=== PATIENT | male | born 1935 | race Caucasian/White ===

== ENCOUNTER → 2016-11-17 | Outpatient (CLI) | payer OTHER | LOC: BHFA 11:30 | PROVIDERS: ATTEND Internal Medicine | DX: I48.91 Unspecified atrial fibrillation (principal); I10 Essential (primary) hypertension ==

== ENCOUNTER → 2016-11-18 | Outpatient (CLI) | payer OTHER | LOC: BHFA 08:30 | PROVIDERS: ATTEND Internal Medicine Cardiovascular Disease | DX: I47.2 Ventricular tachycardia (principal); I10 Essential (primary) hypertension; G45.9 Transient cerebral ischemic attack, unspecified | CPT/HCPCS: 78452; 93017; A9500; J2785 ==

== ENCOUNTER 2016-11-24 07:44 | Observation (INO) | payer OTHER ==
[2016-11-24] MEDS ORDERED: DIAZEPAM 5 MG TAB PO ONE (07:47)
[2016-11-24] MEDS ORDERED: ASPIRIN EC 325 MG TAB PO ONE ×2 (07:47→08:21)
[2016-11-24] MEDS ORDERED: FAMOTIDINE 20 MG TAB PO ONE (07:47)
[2016-11-24] MEDS ORDERED: diphenhydrAMINE 25 MG CAP PO ONE ×2 (07:47→08:21)
[2016-11-24] MEDS ORDERED: NS 1,000 ML IV ONE (07:47)
--- NOTE | 2016-11-24 08:19 | CPEKG ---
Heart Rate: 76 RR Interval: 789 QRSD Interval: 96 QT Interval: 408 QTC Interval: 459 QRS [place]: 23 T Wave [place]: 17 EKG Severity - ABNORMAL ECG - EKG Impression: ATRIAL FIBRILLATION, V-RATE 68-91 EKG Impression: PVCS EKG Impression: COMPARED WITH PRIOR TRACING DATED 04/08/2016 AT 10:50 AM, QT INTERVAL NOW SHORTER Electronically Signed By: Buffy Palomo 24-Nov-2016 10:44:49
[2016-11-24] MEDS ORDERED: FAMOTIDINE 20 MG TAB ONE (08:21)
[2016-11-24] MEDS ORDERED: DIAZEPAM 5 MG TAB ONE (08:21)
[2016-11-24 08:24] LABS: % IMMATURE GRANULYOCYTES 0.5 % (0.0-1.1); ABSOLUTE IMMATURE GRANULOCYTES 0.03 10^3/uL (0.00-0.10); ADD DIFF? NO; ADD MORPH? NO; ADD SCAN? NO; ATYPICAL LYMPHOCYTE FLAG 10 (0-99); FRAGMENT RBC FLAG 0 (0-99); HEMATOCRIT 49.8 % (40.0-51.0); HEMOGLOBIN 16.6 g/dL (13.7-17.5); LEFT SHIFT FLG 0 (0-99); LIPEMIA HEMOLYSIS FLAG 80 (0-99); MEAN CELL HEMOGLOBIN 30.3 pg (27.9-34.1); MEAN CELL HEMOGLOBIN CONCENTR. 33.3 g/dL (32.4-36.7); MEAN CELL VOLUME 90.9 fL (81.5-99.8); MEAN PLATELET VOLUME 12.4 fL (8.7-11.7); PLATELET CLUMPS FLAG 0 (0-99); PLATELET COUNT 157 10^3/uL (150-400); RED BLOOD CELL COUNT 5.48 10^6/uL (4.40-6.38); RED CELL DISTRIBUTION WIDTH 13.8 % (11.5-15.2)
[2016-11-24 08:35] LABS: ANION GAP 14 mEq/L (8-16); CALCIUM 9.7 mg/dL (8.5-10.4); CARBON DIOXIDE 24 mEq/l (22-31); CHLORIDE 108 mEq/L (97-110); CHOLESTEROL 108 mg/dL (140-220); CHOLESTEROL/HDL RATIO 2.57 RATIO (1.00-4.97); CREATININE 0.9 mg/dL (0.7-1.3); GLOMERULAR FILTRATION RATE > 60; GLUCOSE 93 mg/dL (70-100); HIGH DENSITY LIPOPROTEIN 42 mg/dL (40-65); LDL/HDL RATIO 1.21 RATIO (1.00-3.64); LOW DENSITY LIPOPROTEIN 51 mg/dL (80-100); MAGNESIUM 2.1 mg/dL (1.6-2.3); NON-HIGH DENSITY LIPOPROTEIN 66 mg/dL (90-129); POTASSIUM 4.3 mEq/L (3.5-5.2); SODIUM 146 mEq/L (134-144); TRIGLYCERIDE 77 mg/dL (40-150); VERY LOW DENSITY LIPOPROTEINS 15 mg/dL (8-25)
[2016-11-24 08:38] LABS: INR 1.17 (0.83-1.16); PROTIME(PATIENT) 14.9 SEC (12.0-15.0)
[2016-11-24] MEDS ORDERED: LIDOCAINE 1% 300 MG/30 ML SDV ONE (09:53)
[2016-11-24] MEDS ORDERED: HEPARIN 10,000 UNIT/10 ML MDV ONE (09:53)
[2016-11-24] MEDS ORDERED: MIDAZOLAM 2 MG/2 ML VIAL ONE (09:53)
[2016-11-24] MEDS ORDERED: fentaNYL 100 MCG/2 ML INJ ONE (09:53)
[2016-11-24] MEDS ORDERED: VERAPAMIL 5 MG/2 ML VIAL ONE (09:53)
[2016-11-24] MEDS ORDERED: IOPAMIDOL (ISOVUE-370) 150 ML BTL IV ONE ×2 (09:54→10:37)
[2016-11-24] MEDS ORDERED: BIVALIRUDIN 250 MG/5 ML VIAL IV ONE (10:37)
[2016-11-24] MEDS ORDERED: NITROGLYCERIN 1,500 MCG/15 ML VIAL MISC ONE (10:55)
[2016-11-24] MEDS ORDERED: LABETALOL HCL 50 MG/10 ML SYR ONE (11:03)
[2016-11-24] MEDS ORDERED: CLOPIDOGREL BISULFATE 75 MG TAB ONE (11:07)
[2016-11-24] MEDS ORDERED: CLOPIDOGREL BISULFATE 75 MG TAB PO ONE (11:21)
[2016-11-24] MEDS ORDERED: ATROPINE SULFATE 1 MG/10 ML SYR IVP PRN (11:21)
[2016-11-24] MEDS ORDERED: ONDANSETRON 4 MG/2 ML VIAL IVP PRN (11:21)
[2016-11-24] MEDS ORDERED: TEMAZEPAM 15 MG CAP PO PRN (11:21)
[2016-11-24] MEDS ORDERED: NITROGLYCERIN 0.4 MG BTL SL PRN (11:21)
[2016-11-24] MEDS ORDERED: LORazepam 2 MG/ML INJ IVP PRN (11:21)
--- NOTE | 2016-11-24 11:28 | CPEKG ---
Heart Rate: 69 RR Interval: 870 QRSD Interval: 98 QT Interval: 464 QTC Interval: 497 QRS [place]: 29 T Wave [place]: 26 EKG Severity - ABNORMAL ECG - EKG Impression: ATRIAL FIBRILLATION, V-RATE 42-93 EKG Impression: ABERRATED PREMATURE ATRIAL BEAT VS PVC EKG Impression: BORDERLINE PROLONGED QT INTERVAL EKG Impression: COMPARED WITH 24 NOV 2016 AT 8:17, QT SHORTER Electronically Signed By: Buffy Palomo 24-Nov-2016 13:39:26
--- NOTE | 2016-11-24 12:24 | CPIP ---
[f rep st] INVASIVE CARDIAC PROCEDURE DATE OF PROCEDURE: 11/24/2016 PROCEDURE: 1. Coronary angiography. 2. Left ventriculography. 3. Stenting of circumflex coronary artery with Synergy drug-eluting stents. INDICATIONS: 1. Ventricular tachycardia. 2. Abnormal nuclear stress test that is intermediate risk. 3. Cardiomyopathy. ACCESS: Patient was prepped and draped in a sterile fashion. 1% lidocaine was used to anesthetize the right inguinal region. A 6-Yakut introducer sheath was placed selectively into the right commo n femoral artery via modified Seldinger technique. CORONARY ANGIOGRAPHY: A 6-Yakut JL4 was advanced to the left main coronary artery and images obtai eliana. The left main coronary artery bifurcated into an LAD and circumflex coronary arteries. The le ft main coronary artery appeared normal. The left anterior descending coronary artery gave rise to 1 prominent diagonal branch, as well as several smaller diagonal branches. The left anterior descen ding coronary artery was diffusely diseased. In the proximal segment, there is sequential 20% to 25 % stenosis present. In the mid vessel, there was a segmental 15% to 20% stenosis present. The firs t diagonal artery had a proximal 30% to 40% stenosis present. The circumflex coronary artery was a large vessel. The circumflex coronary artery was nondominant. Circumflex coronary artery gave rise to 3 OM branches. The circumflex coronary artery had a mid 20% to 30% stenosis present. The secon d OM artery was a large vessel. The second OM artery had a proximal 90% stenosis present. A 6-Fren ch JR4 was advanced to the right coronary artery and images obtained. The right coronary artery is dominant. The right coronary artery had a single discrete 30% stenosis in the midvessel. LEFT VENTRICULOGRAPHY: A 6-Yakut pigtail catheter was advanced into the left ventricle and images obtained. Left ventricle was mildly dilated in size. Left ventricular systolic function was signif icantly reduced. The estimated ejection fraction was 30%. Segmental wall motion abnormalities are hard to ascertain given irregular beating of the heart. PERCUTANEOUS CORONARY INTERVENTION OF SECOND OM CORONARY ARTERY: A 6-Yakut EBU 3.5 catheter was ad vanced to the left main coronary artery and images obtained. Angiography confirmed the presence of high-grade disease involving the proximal OM2 coronary artery. A Luge wire was placed in the distal vessel and position verified by angiography. A 2.5 x 12 Emerge balloon was used to pre-dilate the lesion. Followup angiography demonstrated KATIE 3 flow; however, there was significant residual sten osis. A 2.5 x 16 Synergy drug-eluting stent was then placed across the lesion and deployed. Follow up angiography demonstrated KATIE-3 flow with a small distal edge dissection. A second 2.5 x 16 Syne rgy drug-eluting stent was placed within the first stent and extended distally and deployed. Follow up angiography demonstrated KATIE-3 flow, no residual stenosis. COMPLICATIONS: None. CONCLUSIONS: 1. Single-vessel coronary artery disease. 2. Reduced left ventricular systolic function with an estimated ejection fraction 30%. 3. Status post successful percutaneous coronary intervention of the second OM artery using Synergy drug-eluting stents. /[id number]/MODL
--- NOTE | 2016-11-24 14:34 | CPEKG ---
Heart Rate: 66 RR Interval: 909 QRSD Interval: 94 QT Interval: 456 QTC Interval: 478 QRS [place]: 35 T Wave [place]: 25 EKG Severity - ABNORMAL ECG - EKG Impression: ATRIAL FIBRILLATION, V-RATE 51-89 EKG Impression: BORDERLINE PROLONGED QT INTERVAL Electronically Signed By: Buffy Palomo 24-Nov-2016 17:19:50
[2016-11-24] MEDS: PRESERVISION AREDS2 FORMULA EYE VIT 1 EACH PO SCH ×2 (20:12→20:14)
[2016-11-25 05:10] LABS: % IMMATURE GRANULYOCYTES 0.6 % (0.0-1.1); ABSOLUTE IMMATURE GRANULOCYTES 0.04 10^3/uL (0.00-0.10); ADD DIFF? NO; ADD MORPH? NO; ADD SCAN? NO; ATYPICAL LYMPHOCYTE FLAG 10 (0-99); FRAGMENT RBC FLAG 0 (0-99); HEMATOCRIT 46.5 % (40.0-51.0); HEMOGLOBIN 15.6 g/dL (13.7-17.5); LEFT SHIFT FLG 0 (0-99); LIPEMIA HEMOLYSIS FLAG 80 (0-99); MEAN CELL HEMOGLOBIN 30.5 pg (27.9-34.1); MEAN CELL HEMOGLOBIN CONCENTR. 33.5 g/dL (32.4-36.7); MEAN PLATELET VOLUME 12.3 fL (8.7-11.7); PLATELET CLUMPS FLAG 0 (0-99); PLATELET COUNT 133 10^3/uL (150-400); RED BLOOD CELL COUNT 5.11 10^6/uL (4.40-6.38); RED CELL DISTRIBUTION WIDTH 13.9 % (11.5-15.2)
[2016-11-25 05:13] LABS: ANION GAP 11 mEq/L (8-16); CALCIUM 9.4 mg/dL (8.5-10.4); CARBON DIOXIDE 26 mEq/l (22-31); CHLORIDE 107 mEq/L (97-110); GLOMERULAR FILTRATION RATE > 60; GLUCOSE 87 mg/dL (70-100); POTASSIUM 4.4 mEq/L (3.5-5.2); SODIUM 144 mEq/L (134-144)
[2016-11-25 05:48] VITALS: RESP 18; TEMP 98.6
[2016-11-25 07:34] VITALS: PULSE 92; O2SAT 91
[2016-11-25] MEDS: PRESERVISION AREDS2 FORMULA EYE VIT 1 EACH PO SCH (08:16)
[2016-11-25 08:18] VITALS: BP 150/75
[2016-11-25] MEDS ORDERED: CLOPIDOGREL BISULFATE 75 MG TAB PO SCH (09:00)
[2016-11-25] MEDS ORDERED: ESCITALOPRAM OXALATE 10 MG TAB PO SCH (09:00)
[2016-11-25] MEDS ORDERED: ASPIRIN EC 325 MG TAB PO SCH (09:00)
[2016-11-25] MEDS ORDERED: ATORVASTATIN CALCIUM 20 MG TAB PO SCH (09:00)
--- NOTE | 2016-11-25 09:07 | CPEKG ---
Heart Rate: 114 RR Interval: 526 QRSD Interval: 92 QT Interval: 364 QTC Interval: 502 QRS [place]: 38 T Wave [place]: 19 EKG Severity - ABNORMAL ECG - EKG Impression: ATRIAL FIBRILLATION, V-RATE 93-149 EKG Impression: MULTIPLE VENTRICULAR PREMATURE COMPLEXES EKG Impression: BORDERLINE T ABNORMALITIES, INFERIOR LEADS EKG Impression: PROLONGED QT INTERVAL EKG Impression: COMPARED WITH 11/24/2016 AT 2:32 P.M., PVCS NOW NOTED Electronically Signed By: Buffy Palomo 25-Nov-2016 11:48:46
[2016-11-25] MEDS ORDERED: METOPROLOL TARTRATE 50 MG TAB PO SCH (10:45)
--- NOTE | 2016-11-25 11:53 | GDS ---
[f rep st] DISCHARGE SUMMARY DISCHARGE DIAGNOSES: 1. Persistent versus permanent atrial fibrillation, on Eliquis therapy. 2. History of transient ischemic attack. 3. History of hypertension. 4. History of dyslipidemia. 5. Recent falls of unclear etiology with extensive cardiac testing. 6. Recent nuclear stress test showing moderate-size fixed mid to distal inferior defect, consistent with infarct versus artifact with associated mild inferior hypokinesis with mild impaired thickenin g. Ejection fraction reduced at 37%. Status post left heart catheterization and percutaneous inter vention to a stenotic second OM with 90% stenosis. 7. Recent 30-day event monitor showing 4-6 beat runs of a wide-complex tachycardia and ventricular tachycardia. Started on beta shilo on this admission. PROCEDURE PERFORMED: 11/24/2016 left heart catheterization with mild to moderate coronary disease, 90% stenosis found in the second OM in the proximal portion, status post Synergy stenting. BRIEF SUMMARY: Please see dictated H and P by Charla Almeida for complete details. In brief, th e patient is an 81-year-old male with persistent versus permanent atrial fibrillation on anticoagula tion, previous TIA, hypertension, and dyslipidemia, who had a fall recently with resultant fracture to his right femoral head ,status post ORIF. Fall etiology was unclear and so he proceeded to cardi ac testing, which included echo, a 30-day event monitor, and echocardiography. On nuclear stress te sting, he was found to have an inferior perfusion defect with associated wall motion abnormality. H e proceeded to left heart catheterization, which found obstructive disease in the obtuse marginal, s tatus post PTCA and stenting. HOSPITAL COURSE: 1. Abnormal nuclear stress test with recent possible syncope. He is status post PCI to OM. 2. Wide-complex tachycardia versus ventricular tachycardia. He has proceeded to revascularization. He will be started on metoprolol in place of his Cardizem. He will have followup echo and Holter monitoring in our office in the next 1-2 weeks. 3. Hypoxia. He had some low O2 saturations in this hospitalization. He was advised to follow up f or a possible sleep evaluation. 4. Atrial fibrillation. His rates are mostly controlled on telemetry. He will be changed from Car dizem to Eliquis, as listed above. 5. Dyslipidemia. He is on atorvastatin. His LDL measures at 51. His therapy has been continued. 6. CAD. He has been started on dual antiplatelet therapy in addition to his Eliquis. We reviewed that after 1 month's time he will stop aspirin and only continue on Plavix and Eliquis. RESULTS PENDING: None. DIET: Cardiac diet reviewed. ACTIVITY: Groin precautions reviewed. PHYSICAL EXAM: VITAL SIGNS: On the day of discharge, blood pressure 150/75, heart rate 92, respira tions 18, O2 saturation 91% on room air. GENERAL: He is a very pleasant male in no apparent distre ss. EYES: PERRL. HEART: Irregular rate and rhythm with no rubs, gallops, or murmurs. LUNGS: Cl ear. ABDOMEN: Soft. Right groin site without ecchymosis, bruit, or tenderness on palpation. He h as 2+ PT pulses bilaterally. LABORATORY DATA: BMP: Sodium 144, potassium 4.4, chloride 107, CO2 26, BUN 16, creatinine 1, gluco se 87. Triglycerides 77, total cholesterol 108, LDL 51, HDL 42. CBC with WBC 6.75, hemoglobin 15.6 , hematocrit 46.5, platelet count of 133. DISCHARGE MEDICATIONS: Please see medication reconciliation for complete details. He is being disc harged on his atorvastatin, apixaban, Lexapro, PreserVision, Cialis. His Cardizem has been stopped. He has been started on metoprolol 50 p.o. b.i.d. He will be placed on Plavix 75 mg p.o. daily. A spirin should be taken for 30 days postprocedurally. This is just 81 mg p.o. daily. FOLLOWUP INSTRUCTIONS: 1. Groin precautions. 2. Follow up with Charla Almeida as scheduled for December 07. /[id number]/MODL
== END 2016-11-25 12:20 | disposition home or self-care (01) ==
LOC: FCATH 07:44 → F2W 11:17
PROVIDERS: ADMIT Internal Medicine Cardiovascular Disease; ATTEND Internal Medicine Cardiovascular Disease
PROC: B2111ZZ Fluoroscopy of Multiple Coronary Arteries using Low Osmolar Contrast (ICD-10-PCS; principal; 2016-11-24)
PROC: B2151ZZ Fluoroscopy of Left Heart using Low Osmolar Contrast (ICD-10-PCS; principal; 2016-11-24)
PROC: 027035Z Dilation of Coronary Artery, One Artery with Two Drug-eluting Intraluminal Devices, Percutaneous Approach (ICD-10-PCS; principal; 2016-11-24)
PROC: 4A023N7 Measurement of Cardiac Sampling and Pressure, Left Heart, Percutaneous Approach (ICD-10-PCS; principal; 2016-11-24)
DX: I47.2 Ventricular tachycardia (principal); I48.91 Unspecified atrial fibrillation; I25.10 Atherosclerotic heart disease of native coronary artery without angina pectoris; R94.39 Abnormal result of other cardiovascular function study; R09.02 Hypoxemia; I42.9 Cardiomyopathy, unspecified; I49.5 Sick sinus syndrome; R29.6 Repeated falls; I10 Essential (primary) hypertension; E78.5 Hyperlipidemia, unspecified; N40.0 Benign prostatic hyperplasia without lower urinary tract symptoms; R41.3 Other amnesia; Z86.73 Personal history of transient ischemic attack (TIA), and cerebral infarction without residual deficits; Z87.891 Personal history of nicotine dependence; Z79.01 Long term (current) use of anticoagulants; Z79.82 Long term (current) use of aspirin
CPT/HCPCS: 93005; 93458; C1725; C1760; C1769; C1874; C1887; C9600; J0583; J1644; J2250; J3010; Q9967

== ENCOUNTER → 2016-12-20 | Outpatient (CLI) | payer OTHER | LOC: BHFA 10:00 | PROVIDERS: ATTEND Internal Medicine Cardiovascular Disease | DX: I48.91 Unspecified atrial fibrillation (principal); I49.5 Sick sinus syndrome ==

== ENCOUNTER → 2016-12-29 | Outpatient (CLI) | payer OTHER | LOC: BHFA 15:30 | PROVIDERS: ATTEND Internal Medicine Cardiovascular Disease | DX: I48.91 Unspecified atrial fibrillation (principal) ==

== ENCOUNTER → 2017-04-06 | Outpatient (CLI) | payer OTHER | LOC: FIMAGING 12:04 | PROVIDERS: ATTEND Internal Medicine | DX: M50.30 Other cervical disc degeneration, unspecified cervical region (principal) ==

== ENCOUNTER → 2017-08-22 | Outpatient (CLI) | payer OTHER | LOC: FIMAGING 15:01 | PROVIDERS: ATTEND Internal Medicine | DX: S32.030A Wedge compression fracture of third lumbar vertebra, initial encounter for closed fracture (principal); M48.061 Spinal stenosis, lumbar region without neurogenic claudication; M46.96 Unspecified inflammatory spondylopathy, lumbar region; M51.36 Other intervertebral disc degeneration, lumbar region; M46.97 Unspecified inflammatory spondylopathy, lumbosacral region; M48.07 Spinal stenosis, lumbosacral region ==

== ENCOUNTER → 2017-08-24 | Outpatient (CLI) | payer OTHER | LOC: FIMAGING 10:06 | PROVIDERS: ATTEND Internal Medicine | DX: M25.552 Pain in left hip (principal) ==

== ENCOUNTER 2017-09-13 09:48 | Inpatient (IN) | payer OTHER ==
[2017-09-13] MEDS ORDERED: ceFAZolin 2 GM/SWFI 2 GM/20 ML SYR IVP ONE (10:10)
[2017-09-13] MEDS ORDERED: LIDOCAINE 1% 2 ML INJ ID PRN (10:11)
[2017-09-13] MEDS ORDERED: LR 1,000 ML IV ONE (10:11)
[2017-09-13] MEDS ORDERED: BUPIVACAINE 0.5% 10 ML SDV ONE ×3 (11:11→11:13)
--- NOTE | 2017-09-13 11:53 | PDHPUP ---
History & Physical Update H&P update statement: This history and physical update is based on an assessment of the patient which was completed after admission or registration (within 24 hours), but prior to the surgery/procedure. H&P update: H&P reviewed & patient examined, no change in patient's condition since H&P completed
[2017-09-13] MEDS ORDERED: fentaNYL 100 MCG/2 ML INJ ONE ×3 (12:10→13:44)
[2017-09-13] MEDS ORDERED: LIDOCAINE 2% 100 MG/5 ML SYR ONE (12:10)
[2017-09-13] MEDS ORDERED: ROCURONIUM 50 MG/5 ML VIAL ONE (12:10)
[2017-09-13] MEDS ORDERED: PROPOFOL 200 MG/20 ML VIAL ONE (12:10)
--- NOTE | 2017-09-13 12:13 | PDANEPAE ---
ANE Past Medical History - Cardiovascular History Hx Hypertension: Yes Hx Arrhythmias: Yes Hx Chest Pain: No Hx Coronary Artery / Peripheral Vascular Disease: Yes Hx CHF / Valvular Disease: No Hx Palpitations: No Cardiovascular History Comment: Sick sinus syndrome, A Fib, Heart cath w/2 stents November. - Pulmonary History Hx COPD: No Hx Asthma/Reactive Airway Disease: No Hx Recent Upper Respiratory Infection: No Hx Oxygen in Use at Home: No Hx Sleep Apnea: No Sleep Apnea Screening Result - Last Documented: Positive Pulmonary History Comment: Dx w/[place]-Barry appro 2009 - Neurologic History Hx Cerebrovascular Accident: No Hx Seizures: No Hx Dementia: No Neurologic History Comment: TIA . Decreased strength/stamina.Short term memory impairment-past yr. - Endocrine History Hx Diabetes: No - Renal History Hx Renal Disorders: Yes Renal History Comment: BPH- responded to Cool Thermotx and Cialis. - Liver History Hx Hepatic Disorders: No - Neurological & Psychiatric Hx Hx Neurological and Psychiatric Disorders: Yes Neurological / Psychiatric History Comment: L3 compression fx, concussion sustained w/fall 08-08-17. - Cancer History Hx Cancer: No - Congenital Disorder History Hx Congenital Disorders: No - GI History Hx Gastrointestinal Disorders: No - Other Health History Other Health History: macular degeneration-bilat;. seasonal allergies - Chronic Pain History Chronic Pain: Yes (back/L groin) - Surgical History Prior Surgeries: Rodding R hip . shoulder sx. sinus sx. varicose vein sx. laminectomy ANE Review of Systems Review of Systems: - Exercise capacity METS (RN): 4 METS ANE Patient History - Allergies Allergies/Adverse Reactions: hydrocodone [From Vicodin] Allergy (Verified 09/12/17 17:53) Vomiting SULFA EYE SOLUTION Allergy (Mild, Uncoded 03/29/16 01:12) ITCHY/IRRITATED EYE LIDS - Home Medications Home Medications: Atorvastatin Calcium [Lipitor 20 mg (*)] 20 mg PO DAILY 03/28/16 [Last Taken 1 Day Ago ~09/12/17] C/E/Zn/Cu/OM3/DHA/EPA/LUT/ZEAX [Preservision Areds 2 Softgel] 1 each PO BID [Last Taken 11/24/16] Escitalopram Oxalate [Lexapro 10 MG] 10 mg PO DAILY 03/28/16 [Last Taken 08:00] Tadalafil [Cialis] 5 mg PO HS 03/28/16 [Last Taken 11/23/16] Acetaminophen [Tylenol 325mg (*)] 325 - 650 mg PO DAILY PRN 11/24/16 [Last Taken 09/13/17 08:00] Apixaban [Eliquis] 5 mg PO BID 11/24/16 [Last Taken 09/11/17 18:00] Gabapentin 09/12/17 [Last Taken 1 Day Ago ~09/12/17] Oxycodone HCl 09/12/17 [Last Taken 09/09/17] - NPO status NPO Since - Liquids (Date): 09/13/17 NPO Since - Liquids (Time): 08:00 NPO Since - Solids (Date): 09/12/17 NPO Since - Solids (Time): 18:30 - Smoking Hx Smoking Status: Former smoker ANE Labs/Vital Signs - Vital Signs Blood Pressure: 155/95 Heart Rate: 87 Respiratory Rate: 18 O2 Sat (%): 94 Height: 190.5 cm Weight: 86.183 kg ANE Physical Exam - Airway Neck exam: FROM Mallampati Score: Class 3 Mouth exam: normal dental/mouth exam - Pulmonary Pulmonary: no respiratory distress - Cardiovascular Cardiovascular: regular rate and rhythym - ASA Status ASA Status: III ANE Anesthesia Plan Anesthesia Plan: general endotracheal anesthesia
[2017-09-13] MEDS ORDERED: ALBUTEROL 3 ML DEYVIAL IH PRN (13:22)
[2017-09-13] MEDS ORDERED: NALOXONE HCL 0.4 MG/ML INJ IVP PRN (13:22)
--- NOTE | 2017-09-13 13:23 | POSTANESTH ---
Post Anesthetic Evaluation Cardiovascular Status: Similar to Pre-Op Cond Respiratory Status: Similar to Pre-op Cond. Level of Consciousness/Mental Status: Mildly Sleepy, Arousable Pain Control: Adequate, Prn Tx Ordered Nausea/Vomiting Control: Adequate, Prn Tx Ordered Complications Possibly Related to Anesthesia: None Noted
--- NOTE | 2017-09-13 13:23 | POSTOPPROG ---
Post Op Note Date of Operation: 09/13/17 Surgeon: Cortes Ballard Eligibility And Occupancy Interviewer: Valerie Pérez Anesthesiologist: Jorge Alberto Luna Anesthesia: GET(General Endotracheal) Pre-op Diagnosis: LIH Post-op Diagnosis: bilateral femoral hernias Procedure: lap B femoral hernia repair with mesh Findings: bilateral defects Inf/Abcess present in the surg proc area at time of surgery?: No EBL: Minimal Complications: none Specimen(s): none
[2017-09-13] MEDS: fentaNYL 100 MCG/2 ML INJ IVP PRN ×3 (13:45→14:15)
[2017-09-13] MEDS: OXYCODONE/APAP 5/325 TAB PO PRN ×2 (15:44→23:49)
--- NOTE | 2017-09-13 17:37 | CPEKG ---
Heart Rate: 110 RR Interval: 545 QRSD Interval: 90 QT Interval: 352 QTC Interval: 477 QRS [place]: 14 T Wave [place]: -12 EKG Severity - ABNORMAL ECG - EKG Impression: ATRIAL FIBRILLATION, V-RATE 71-147 EKG Impression: VENTRICULAR PREMATURE COMPLEXES EKG Impression: BORDERLINE T ABNORMALITIES, INFERIOR LEADS EKG Impression: BORDERLINE PROLONGED QT INTERVAL Electronically Signed By: Francisco Ruby 14-Sep-2017 06:25:58
[2017-09-13] MEDS ORDERED: ENALAPRILAT DIHYDRATE 1.25 MG/ML VIAL IVP ONE (18:15)
[2017-09-13] MEDS ORDERED: METOPROLOL TARTRATE 25 MG TAB PO ONE (18:15)
[2017-09-13 18:17] LABS: PLATELET COUNT 151 10^3/uL (150-400)
[2017-09-13] MEDS ORDERED: FUROSEMIDE 20 MG/2 ML VIAL IVP ONE (18:37)
[2017-09-13] MEDS: ONDANSETRON 4 MG/2 ML VIAL IVP PRN (18:41)
--- NOTE | 2017-09-13 18:45 | PDCARCONS ---
Cardiology Consult Reason for Consult: CP, known CAD, post operative from bilateral inguinal hernia repair. Chief Complaint: Chest pain. Requesting Physician: Dr. Emeka Ballard. History of Present Illness: This is an 81-year-old male typically followed as an outpatient by Dr. Luigi Martinez. He has known coronary artery disease. He underwent cardiac catheterization and subsequent PCI/stenting of an obtuse marginal branch in November of 2016. He has known permanent atrial fibrillation associated with sick sinus syndrome. As an outpatient he has been treated with systemic anticoagulation in the form of Eliquis. In the past he had been treated with metoprolol however more recently this looks as if to have been discontinued due to symptoms of fatigue. He underwent bilateral inguinal hernia repair earlier today. This was performed laparoscopically. There were no complications. Earlier today he complained of a 45 min episode of chest discomfort. This was described as a retrosternal aching sensation. He felt as if he needed to"wipe it away."The symptoms resolved spontaneously. Currently he is pain free. He is suffering from significant nausea and had multiple episodes of emesis during my visit with him. He had an electrocardiogram done. This indicates atrial fibrillation with a rapid ventricular response. Isolated PVCs were noted. There were no significant ST or T changes. History Information - Allergies/Home Medication List Allergies/Adverse Reactions: hydrocodone [From Vicodin] Allergy (Verified 09/12/17 17:53) Vomiting SULFA EYE SOLUTION Allergy (Mild, Uncoded 03/29/16 01:12) ITCHY/IRRITATED EYE LIDS Home Medications: Atorvastatin Calcium [Lipitor 20 mg (*)] 20 mg PO DAILY 03/28/16 [Last Taken 05/21] C/E/Zn/Cu/OM3/DHA/EPA/LUT/ZEAX [Preservision Areds 2 Softgel] 1 each PO BID [Last Taken 09/06/17] Escitalopram Oxalate [Lexapro 10 MG] 10 mg PO DAILY 03/28/16 [Last Taken ] Tadalafil [Cialis] 5 mg PO HS 03/28/16 [Last Taken 09/11/17] Apixaban [Eliquis] 5 mg PO BID 11/24/16 [Last Taken 09/11/17 18:00] Acetaminophen [Tylenol ES 500 mg (*)] 1,000 mg PO Q8 09/13/17 [Last Taken 08:00] Bevacizumab [Avastin] 1 dose RTEYE .Q6WK 09/13/17 [Last Taken 09/06/17] [place]a Injection 1 dose LEFTEYE .Q6WK 09/13/17 [Last Taken 09/06/17] Gabapentin [Neurontin 100 MG (*)] 100 mg PO TID 09/13/17 [Last Taken 09/12/17] Metoprolol Tartrate [Lopressor 25 mg (*)] 25 mg PO BID 09/13/17 [Last Taken 08:00] oxyCODONE IR [Oxycodone Ir (*)] 5 mg PO Q4 PRN 09/13/17 [Last Taken Unknown] I have personally reviewed and updated: family history, medical history, social history, surgical history Past Medical History: - Social History Smoking Status: Former smoker Physical Exam Physical Exam: Temp Pulse Resp BP Pulse Ox 36.6 C 89 18 170/110 H 98 09/13/17 15:23 09/13/17 17:37 09/13/17 17:37 09/13/17 17:37 09/13/17 17:37 O2 (L/minute) 3 Constitutional: no apparent distress Cardiovascular: irregularly irregular, tachycardia Peripheral Pulses: 2+: carotid (R), carotid (L) Respiratory: no respiratory distress, no rales or rhonchi, clear to auscultation , No reduced air movement Gastrointestinal: soft, non-tender abdomen, other (Postoperative changes noted from his recent laparoscopic inguinal hernia repair) Skin: warm, normal color Neurologic: AAOx3 Psychiatric: interacting appropriately, not anxious, not encephalopathic Lab and Imaging 09/13/17 18:12 09/13/17 18:12 WBC 12.03 10^3/uL (3.80-9.50) H 09/13/17 18:12 RBC 4.75 10^6/uL (4.40-6.38) 09/13/17 18:12 Hgb 15.4 g/dL (13.7-17.5) 09/13/17 18:12 Hct 46.3 % (40.0-51.0) 09/13/17 18:12 MCV 97.5 fL (81.5-99.8) 09/13/17 18:12 MCH 32.4 pg (27.9-34.1) 09/13/17 18:12 MCHC 33.3 g/dL (32.4-36.7) 09/13/17 18:12 RDW 13.2 % (11.5-15.2) 09/13/17 18:12 Plt Count 151 10^3/uL (150-400) 09/13/17 18:12 MPV 11.6 fL (8.7-11.7) 09/13/17 18:12 Neut % (Auto) 85.3 % (39.3-74.2) H 09/13/17 18:12 Lymph % (Auto) 7.7 % (15.0-45.0) L 09/13/17 18:12 [place] % (Auto) 5.7 % (4.5-13.0) 09/13/17 18:12 Eos % (Auto) 0.7 % (0.6-7.6) 09/13/17 18: Baso % (Auto) 0.2 % (0.3-1.7) L 09/13/17 18:12 Nucleat RBC Rel Count 0.0 % (0.0-0.2) 09/13/17 18:12 Absolute Neuts (auto) 10.25 10^3/uL (1.70-6.50) H 09/13/17 18:12 Absolute Lymphs (auto) 0.93 10^3/uL (1.00-3.00) L 09/13/17 18:12 Absolute Monos (auto) 0.68 10^3/uL (0.30-0.80) 09/13/17 18:12 Absolute Eos (auto) 0.09 10^3/uL (0.03-0.40) 09/13/17 18:12 Absolute Basos (auto) 0.03 10^3/uL (0.02-0.10) 09/13/17 18:12 Absolute Nucleated RBC 0.00 10^3/uL (0-0.01) 09/13/17 18:12 Immature Gran % 0.4 % (0.0-1.1) 09/13/17 18: Immature Gran # 0.05 10^3/uL (0.00-0.10) 09/13/17 18:12 Sodium 144 mEq/L (135-145) 09/13/17 18:12 Potassium 4.5 mEq/L (3.5-5.2) 09/13/17 18:12 Chloride 102 mEq/L (97-110) 09/13/17 18:12 Carbon Dioxide 30 mEq/l (22-31) 09/13/17 18:12 Anion Gap 12 mEq/L (8-16) 09/13/17 18:12 BUN 17 mg/dL (7-23) 09/13/17 18:12 Creatinine 1.0 mg/dL (0.7-1.3) 09/13/17 18:12 Estimated GFR > 60 09/13/17 18:12 Glucose 106 mg/dL (70-100) H 09/13/17 18:12 Calcium 9.0 mg/dL (8.5-10.4) 09/13/17 18:12 Visualized and Interpreted Chest x-ray results: Yes Chest X-ray Interpretation: other (Pending congestive heart failure) Visualized and Interpreted EKG results: Yes EKG additional interpertation: Atrial fibrillation with RVR, no acute ischemic ST or T changes A/P Assessment: 1. Known coronary artery disease with previous PCI/stenting of an obtuse marginal branch in November of 2016. 2. History of chronic atrial fibrillation associated with sick sinus syndrome without the need for permanent pacing. He is treated with systemic anticoagulation in the outpatient setting. Currently with poor heart rate control. 3. Atypical chest discomfort noted in the postoperative setting from a laparoscopic bilateral inguinal hernia repair. 4. Chest x-ray indicating possible impending congestive heart failure. 5. Status post recent laparoscopic inguinal hernia repair. Plan: At the present time he appears stable. His chest discomfort was certainly atypical and transient lasting for 45 min. The exact etiology is not clear. He is suffering from significant nausea at the present time. This may have been the impetus for his chest discomfort. Additionally he could of experienced chest discomfort related to AFib with RVR as well as hypertension. His electrocardiogram does not suggest an acute myocardial infarction or acute ischemia. His current presentation is really not consistent with pulmonary embolism or dissection. There is no indication of an infectious process. Plan: 1. I would like to give him IV metoprolol to get better rate control. I have requested 3 doses of intravenous Lopressor. Target heart rate is below 100 beats per minute. 2. I wrote to restart metoprolol 25 mg twice daily. 3. We will monitor him on telemetry. 4. We will plan to cycle his cardiac enzymes throughout the evening. 5. He will be given a single dose of intravenous Lasix. 6. We will follow along. This case was discussed with Dr. Thomson.
[2017-09-13] MEDS: METOPROLOL TARTRATE 5 MG/5 ML INJ IVP SCH ×3 (19:29→23:53)
--- NOTE | 2017-09-13 20:32 | GCON ---
[f rep st] CONSULTATION DATE OF CONSULTATION: 09/13/2017 REASON FOR CONSULTATION: I was asked by Dr. Ballard to see the patient in regard to chest pain. HISTORY OF PRESENT ILLNESS: This is an 81-year-old man who is postoperative day #0 from a bilateral laparoscopic hernia repair. This was done by Dr. Ballard. This afternoon, he had an episode where he turned pale, was asked to lie down by the aide. About half an hour after this, he described some keysha st pain. He describes it as "muscular," felt better when he rubbed his chest. He has a history of c oronary artery disease. He received 2 stents to his OM2 in November of last year. This came about after he wore a Holter monitor. Some abnormalities were found on there, which I presume to be ventricular arrhythmias, led to a heart cath. He never had chest pain during that episode. When I am seeing him, his chest pain is resolved. He notes that he had an episode of syncope about a month ago where he fell and got a compression fracture at L3. He and his also note that his fu nctional status has been decreasing. He never really fully recovered after his cardiac catheterizati on in November. PAST MEDICAL/SURGICAL HISTORY: 1. Atrial fibrillation. 2. Coronary artery disease with stent to OM2. 3. Hypertension. 4. Lumbar surgery. 5. Knee surgery. 6. Sinus surgery. 7. History of systolic CHF with a last EF here of 30%. MEDICATIONS: Please see medication reconciliation. ALLERGIES: Hydrocodone, sulfa eye solution. SOCIAL HISTORY: Does not drink or smoke. He is accompanied by his . FAMILY HISTORY: Reviewed and noncontributory. REVIEW OF SYSTEMS: 10-point review of systems is conducted and is negative except per HPI. PHYSICAL EXAM: VITAL SIGNS: Blood pressure 170/110, heart rate 89, respiration rate 18, sat 98% on 3 L, temperature 36.6. GENERAL: The patient is a pleasant man who is resting comfortably, in no acu te distress. HEENT: Shows him to be normocephalic, atraumatic. CARDIOVASCULAR: Shows him to be ir regularly irregular. He is tachycardic. There are no murmurs, rubs, or gallops. He has no elevated JVD. No lower extremity edema. PULMONARY: Lungs to auscultation bilaterally. He is breathing com fortably. ABDOMEN: Soft, nontender, nondistended. SKIN: No rash. : No Malik. NEUROLOGIC: Sh ows him to be alert and oriented x3. He is moving all extremities. PSYCHIATRIC: Normal mood and af fect. LABS: White count is 12.03. Basic metabolic panel and troponin are pending. DATA: 1. I reviewed his chart including his old operative notes. 2. I personally viewed and interpreted his chest x-ray. This shows borderline cardiomegaly. He has prominent pulmonary vasculature. 3. I reviewed his cath note from November. 4. Briefly discussed this with Dr. Ballard. IMPRESSION AND PLAN: 81-year-old man with a history of coronary artery disease. Underwent a laparos copic hernia repair and now had an episode of chest pain. 1. Chest pain: Certainly concerning for cardiac in origin. I will discuss with Cardiology when his labs are back. Concerning that he had an episode of syncope, has worsening functional status. Trop onin is elevated. Will proceed with more urgent interventions. I will discuss with Dr. Ballard regard ing adding Plavix on postop day #0. 2. Hypertension: Agree with Lopressor as given. He may need additional dose. 3. Atrial fibrillation with rapid ventricular response: As above, I agree with Lopressor. Currentl y holding Eliquis on postop day #0. 4. Systolic congestive heart failure: Appears to be somewhat poorly compensated. Would like to giv e him some Lasix. Will wait to see what his creatinine is prior to doing this. 5. Hypertension: Will need to restart his antihypertensives. 6. Laparoscopic hernia repair, postop day #0: Postop care per Dr. Ballard. /[id number]/MODL
[2017-09-13] MEDS: HYDROmorphONE/DILAUDID 2 MG/ML INJ IVP PRN (21:06)
[2017-09-13] MEDS: DOCUSATE SODIUM 100 MG CAP PO SCH (21:17)
[2017-09-13] MEDS: METOPROLOL TARTRATE 25 MG TAB PO SCH ×2 (21:45→23:51)
--- NOTE | 2017-09-14 07:46 | SOAPPROG ---
SOAP Progress Note Assessment/Plan: Assessment/Plan: 81 Y M s/p lap bilateral inguinal hernia repair, POD#1. Hx afib. CAD c stent. On eliquis and plavix at home. Chest pain. Resolved. Very much appreciate cardiology and medicine input and care. Troponin ok over night. EKG c afib and RVR. IV Lopressor and PO metoprolol started. Hernia repair. Wounds intact. Hernia repairs intact. Dispo: pending cardiology and medicine clearance. Surgical site doing fine. S: eager to go home. no more chest pain. felt nauseous yesterday O: alert, nad ctab irregular rhythm abd soft inc cdi no recurrent hernias 09/14/17 07:45 Objective: Vital Signs Temp Pulse Resp BP Pulse Ox 36.4 C 90 18 122/85 H 97 09/14/17 07:09 09/14/17 07:09 09/14/17 07:09 09/14/17 07:09 09/14/17 07:09 Laboratory Results 09/13/17 18:12 09/13/17 18:12 09/13/17 09/14/17 09/15/17 05:59 05:59 05:59 Intake Total 1410 Output Total 480 Balance 930 ICD10 Worksheet Patient Problems: Problems Problem Status Onset Epistaxis Acute Rapid atrial fibrillation Acute
[2017-09-14] MEDS: OXYCODONE/APAP 5/325 TAB PO PRN ×4 (08:27→21:25)
[2017-09-14] MEDS: GABAPENTIN 100 MG CAP PO SCH ×3 (08:27→21:20)
[2017-09-14] MEDS: PRESERVISION AREDS2 FORMULA EYE VIT 1 EACH PO SCH ×2 (08:27→21:21)
[2017-09-14] MEDS: ESCITALOPRAM OXALATE 10 MG TAB PO SCH (08:28)
[2017-09-14] MEDS: ATORVASTATIN CALCIUM 20 MG TAB PO SCH (08:28)
[2017-09-14] MEDS: METOPROLOL TARTRATE 25 MG TAB PO SCH ×2 (08:28→21:20)
[2017-09-14] MEDS: DOCUSATE SODIUM 100 MG CAP PO SCH ×2 (08:29→21:21)
--- NOTE | 2017-09-14 09:34 | PDHOMEO2F ---
Home Oxygen Face to Face Home Orders: I certify that a physician or a nurse practitioner or physician's desk assistant has had a [id number] encounter with this patient on the date of this order due to the diagnosis listed, which relates to the primary reason the patient requires home oxygen. Alternative treatments have been tried, or considered, and deemed ineffective. It is anticipated that supplemental oxygen will result in improvement with treatment. Home oxygen qualifying diagnosis: congestive heart failure Home oxygen secondary diagnosis: postoperative hypoxia SpO2 on room air (%): 85 Frequency of home oxygen needed: continuous Home oxygen liters per minute: 2 Home oxygen delivery device: nasal cannula Concentrator: Yes E-tanks for mobility and back up: Yes If ordering portable O2, is the patient mobile in the home?: Yes I certify that, based on these findings, the home oxygen is medically necessary for this patient for the following length of time. Length of time home oxygen needed: 1 month
--- NOTE | 2017-09-14 09:42 | ECHO ---
[email or web address] [address] [address] Main: [phone] Fax: Transthoracic Echocardiogram Name: DARIA GARDNER MR#: [id number] Study Date: 09/14/2017 Study Time: 08:37 AM Date of : 1935 Age: 81 year(s) Height: 190.5 cm (75 in.) Weight: 86.18 kg (190 lb.) BSA: 2.15 m2 Gender: Male Examination: Echo Indication: Chest Pain Image Quality: Contrast: Requested by: Luis Thomson BP: 122 mmHg/85 mmHg Heart Rate: Rhythm: Indication: Chest Pain Procedure Staff In Home Sales Consultant: Augie Camacho RDCS Reading Physician: Tomasz Lambert MD Requesting Provider: Conclusions: The rhythm is atrial fibrillation. Normal left ventricular size and systolic function. LVEF estimated at 55-60% and calculated at 54%. No segmental wall motion abnormalities. Severely dilated left atrium. Mild age-related valvular changes with trivial mitral and tricuspid regurgitation. Measurements: Chambers Valvular Assessment AV/MV Valvular Assessment TV/PV Normal Normal Normal Name Value Range Name Value Range Name Value Range Ao Ellen (MM): 3.5 cm (2.2 cm-3.7 AV Vmax: 1.74 m/s (1 m/s-1.7 TR Vmax: 2.74 mm/s ( - ) cm) m/s) TR PGmax: 30 mmHg ( - ) IVSd (2D): 1.1 cm (0.6 cm-1.1 AV maxP mmHg ( - ) syst. PAP: 35 mmHg ( - ) cm) AV meanP mmHg ( - ) PV Vmax: 0.96 m/s (0.6 m/s-0.9 LVDd (2D): 5.3 cm (4.2 cm-5.9 LVOT Vmax: 0.70 m/s (0.7 m/s-1.1 m/s) cm) m/s) PV PGmax: 4 mmHg ( - ) LVDs (2D): 3.8 cm (2.1 cm-4 JUAN CARLOS (Vmax): 1.4 cm2 ( - ) cm) JUAN CARLOS (VTI): 1.1 cm ( - ) LVPWd (2D): 1.2 cm (0.6 cm-1 MV E Vmax: 0.68 m/s ( - ) cm) LVOTd 2.1 cm 2.1 cm mm LVEF (2D): 54 (>=54 %) Continued Measurements: Chambers Valvular Assessment AV/MV Valvular Assessment TV/PV Name Value Name Value Name Value LADs Lon.5 cm MV E' Septal: 0.08 m/s CVP (est.): 5 mmHg LA Area: 32.9 cm2 MV E/E' Septal: 8.60 LA Volume: 124 ml MV E/E' Lateral: 5.70 LA Volume Index: 57.7 ml/m2 Patient: DARIA GARDNER Study Date: 09/14/2017 Page 1 of 2 08:37 AM Findings: Left Ventricle: Normal size left ventricle. Mild concentric LV hypertrophy. Low normal left ventricular systolic function. EF is 54 %. The rhythm is atrial fibrillation.. Right Ventricle: Normal size right ventricle. Left Atrium: The left atrium is severely dilated. Right Atrium: The right atrium is mildly dilated. Mitral Valve: Mild mitral valve leaflet calcification is present. Trivial mitral valve regurgitation. Aortic Valve: The aortic valve is tri-leaflet. There is no aortic valve regurgitation. No aortic valve stenosis is present. Tricuspid Valve: The tricuspid valve appears normal. Trivial tricuspid valve regurgitation. The pulmonary artery pressure is normal. Pulmonic Valve: The pulmonic valve is normal in appearance and function. Aorta: The aorta is normal. Pericardium: No pericardial effusion. (No Signature Object) Patient: DARIA GARDNER Study Date: 09/14/2017 Page 2 of 2 08:37 AM [id number]
--- NOTE | 2017-09-14 09:46 | SOAPPROG ---
SOAP Progress Note Assessment/Plan: Assessment: He has known CAD with previous PCI/stenting of the obtuse marginal. He has chronic atrial fibrillation. He is status post laparoscopic hernia repair. He had fleeting chest discomfort throughout the night really not consistent with angina. Cardiac enzymes are negative and his ECG is benign. At this point I think that he can be discharged from the hospital. I would like him to be discharged on low-dose metoprolol. His systemic anticoagulation can be resumed once he is thought safe from a surgical perspective. I would like him to follow up with Dr. Jeremi velasquez within the next week or 2. 09/14/17 09:46 Subjective: He has done well overnight. He had significant nausea. He has had fleeting episodes of left upper quadrant and low chest discomfort. Currently he is pain free. After beginning metoprolol his heart rates have improved significantly. Cardiac enzymes are negative. His ECG has not indicated any ST/T changes. Objective: Vital Signs Temp Pulse Resp BP Pulse Ox 36.4 C 88 18 122/85 H 97 09/14/17 07:09 09/14/17 08:28 09/14/17 07:09 09/14/17 08:28 09/14/17 07:09 Laboratory Results 09/13/17 18:12 09/13/17 18:12 09/13/17 09/14/17 09/15/17 05:59 05:59 05:59 Intake Total 1410 Output Total 480 Balance 930 Physical Exam - Physical Exam General Appearance: WD/WN, no apparent distress Neck: non-tender, full range of motion Respiratory: lungs clear Cardiac/Chest: irregularly irregular Peripheral Pulses: 2+: carotid (R), carotid (L) ICD10 Worksheet Patient Problems: Problems Problem Status Onset Epistaxis Acute Rapid atrial fibrillation Acute
--- NOTE | 2017-09-14 09:49 | ASMTCMCOM ---
CM Note CM Note Notes: 09/14/2017 Case Management Note Pt admitted for left inguinal hernia repair. Met w/pt and after speaking with PT. PT recommending SNF. Pt has prior stay at [facility]. At pt request faxed referral via all scripts to [facility]. Case Management d/c poc: [facility] pending acceptance. Case Management to follow. Date Signed: 09/14/2017 09:48 AM Electronically Signed By:Libia Farias RN
--- NOTE | 2017-09-14 11:41 | CPEKG ---
Heart Rate: 78 RR Interval: 769 QRSD Interval: 94 QT Interval: 400 QTC Interval: 456 QRS [place]: -9 T Wave [place]: 8 EKG Severity - ABNORMAL ECG - EKG Impression: ATRIAL FIBRILLATION, V-RATE 67-91 EKG Impression: MULTIPLE VENTRICULAR PREMATURE COMPLEXES EKG Impression: BORDERLINE T ABNORMALITIES, ANT-LAT LEADS Electronically Signed By: Francisco Ruby 14-Sep-2017 13:01:42
--- NOTE | 2017-09-14 16:50 | HOSPPROG ---
Hospitalist Progress Note Assessment/Plan: # CP- has resolved overnight- TELE ( personally reviewed and interpreted) atrial fibrillation troponin x 3 negative - continue to monitor will restart aspirin tomorrow # atrial fibrillation-rates improved control overnight - cont metoprolol 25mg BID - will restart blood thinners tomorrow if cleared by surgery # acute hypoxic respiratory failure-suspect secondary to splinting with abdominal pain Oxygen saturations 94% on 2 L - continue supportive care -encourage IS and ambulation -continue pain control # prophylaxis will restart blood thinners tomorrow # diet regular # disposition suspect potentially in the next 24 hr of cleared by Physical therapy for safe disposition I have discussed the case with surgery we will keep patient today continue to monitor and provide supportive care Subjective: Pain with deep inspiration Objective: Vital Signs Temp Pulse Resp BP Pulse Ox 36.4 C 88 12 107/81 H 95 09/14/17 15:21 09/14/17 15:21 09/14/17 15:21 09/14/17 15:21 09/14/17 15:21 Laboratory Results 09/13/17 18:12 09/13/17 18:12 09/13/17 09/14/17 09/15/17 05:59 05:59 05:59 Intake Total 1410 300 Output Total 480 Balance 930 300 - Physical Exam Constitutional: chronically ill appearing Eyes: anicteric sclera Ears, Nose, Mouth, Throat: moist mucous membranes Cardiovascular: regular rate and rhythym, irregularly irregular Respiratory: no respiratory distress Gastrointestinal: normoactive bowel sounds, tenderness, No guarding, No rebound Genitourinary: no bladder fullness Skin: warm Musculoskeletal: No asymmetric calves Neurologic: AAOx3 Psychiatric: interacting appropriately Lymph, Heme, Immunologic: no cervical LAD ICD10 Worksheet Patient Problems: Problems Problem Status Onset Epistaxis Acute Rapid atrial fibrillation Acute
--- NOTE | 2017-09-14 17:04 | PDMN ---
Medical Necessity Medical necessity: change to IP; los> 2mn for continued monitoring s/p lap hernia repair, w/post op chest pain, systolic CHF, acute resp failure, hx afib on AC, on hold; requires monitoring and restart of AC 09/15 if cleared by surgery , and PT eval for safe dispo; per order and progress note 09/14/17
[2017-09-14] MEDS: NON-FORMULARY NEW DRUG (Tadalafil [Cialis] 5 MG) PO SCH (21:21)
[2017-09-15] MEDS: OXYCODONE/APAP 5/325 TAB PO PRN ×3 (06:26→21:42)
[2017-09-15] MEDS ORDERED: ASPIRIN 81 MG CHEWABLE TAB PO SCH (10:00)
[2017-09-15] MEDS: METOPROLOL TARTRATE 25 MG TAB PO SCH ×2 (10:15→21:42)
[2017-09-15] MEDS: DOCUSATE SODIUM 100 MG CAP PO SCH ×2 (10:16→21:41)
[2017-09-15] MEDS: APIXABAN 5 MG TAB PO SCH ×2 (10:16→21:41)
[2017-09-15] MEDS: GABAPENTIN 100 MG CAP PO SCH ×3 (10:17→21:41)
[2017-09-15] MEDS: ATORVASTATIN CALCIUM 20 MG TAB PO SCH (10:17)
[2017-09-15] MEDS: PRESERVISION AREDS2 FORMULA EYE VIT 1 EACH PO SCH ×2 (10:17→21:41)
[2017-09-15] MEDS: ESCITALOPRAM OXALATE 10 MG TAB PO SCH (10:18)
[2017-09-15] MEDS: ACETAMINOPHEN 325 MG TAB PO PRN (12:46)
--- NOTE | 2017-09-15 12:54 | ASMTCMCOM ---
CM Note CM Note Notes: Pts case discussed in morning rounds. CM met w/ pt and for dispo planning. wanted to make sure Dr. Mendoza was notified that the plan is for SNF. also reports that pt has an appointment next wek with [facility] for an xray. wanted to know if pt could have xray while in the hospital. CM spoke w/ Dr. Mendoza's PA, Mary. Mary reports that it is OK for pt to go to SNF and for pt to have xray at the hospital. CM communicated this information to pt and . Updates sent to [facility]. Anticipate d/c for Tuesday. CM to follow. Plan: [facility] Date Signed: 09/15/2017 12:53 PM Electronically Signed By:ROSS Funez
[2017-09-15] MEDS: CLOPIDOGREL BISULFATE 75 MG TAB PO SCH (15:06)
--- NOTE | 2017-09-15 16:11 | HOSPPROG ---
Hospitalist Progress Note Assessment/Plan: # CP- remain resolved - TELE ( personally reviewed and interpreted) atrial fibrillation 80-90's troponin x 3 negative - restarted Plavix today - continue metoprolol # atrial fibrillation-rates improved control overnight - cont metoprolol 25mg BID - restart Eliquis today # acute hypoxic respiratory failure-suspect secondary to splinting with abdominal pain Oxygen saturations 97% on 2 L - continue supportive care - encourage IS and ambulation -continue pain control # prophylaxis - Eliquis # diet regular # disposition suspect potentially in the next 24 hr of cleared by Physical therapy for safe disposition I have discussed the case with RN-encourage IS an increased mobilization Subjective: Pain better controlled Objective: Vital Signs Temp Pulse Resp BP Pulse Ox 36.6 C 90 14 121/68 H 97 09/15/17 11:51 09/15/17 11:51 09/15/17 11:51 09/15/17 11:51 09/15/17 11:51 Laboratory Results 09/15/17 03:55 09/13/17 18:12 09/14/17 09/15/17 09/16/17 05:59 05:59 05:59 Intake Total 1410 700 Output Total 480 225 Balance 930 475 - Physical Exam Constitutional: chronically ill appearing Eyes: anicteric sclera Ears, Nose, Mouth, Throat: moist mucous membranes Cardiovascular: irregularly irregular, No tachycardia Respiratory: no respiratory distress Gastrointestinal: normoactive bowel sounds Genitourinary: no bladder fullness Skin: warm Musculoskeletal: No asymmetric calves Neurologic: AAOx3 Psychiatric: interacting appropriately Lymph, Heme, Immunologic: no cervical LAD ICD10 Worksheet Patient Problems: Problems Problem Status Onset Epistaxis Acute Rapid atrial fibrillation Acute
[2017-09-15] MEDS: NON-FORMULARY NEW DRUG (Tadalafil [Cialis] 5 MG) PO SCH (21:57)
[2017-09-16] MEDS: APIXABAN 5 MG TAB PO SCH ×2 (08:36→19:50)
[2017-09-16] MEDS: CLOPIDOGREL BISULFATE 75 MG TAB PO SCH (08:36)
[2017-09-16] MEDS: DOCUSATE SODIUM 100 MG CAP PO SCH ×2 (08:37→19:50)
[2017-09-16] MEDS: PRESERVISION AREDS2 FORMULA EYE VIT 1 EACH PO SCH ×2 (08:37→19:50)
[2017-09-16] MEDS: ATORVASTATIN CALCIUM 20 MG TAB PO SCH (08:37)
[2017-09-16] MEDS: GABAPENTIN 100 MG CAP PO SCH ×3 (08:37→22:33)
[2017-09-16] MEDS: METOPROLOL TARTRATE 25 MG TAB PO SCH ×2 (08:37→19:50)
[2017-09-16] MEDS: ESCITALOPRAM OXALATE 10 MG TAB PO SCH (08:37)
[2017-09-16] MEDS: ACETAMINOPHEN 325 MG TAB PO PRN ×2 (08:52→19:50)
[2017-09-16] MEDS: ONDANSETRON 4 MG/2 ML VIAL IVP PRN (09:30)
--- NOTE | 2017-09-16 12:21 | HOSPPROG ---
Hospitalist Progress Note Assessment/Plan: # acute hypoxic respiratory failure-suspect secondary to splinting with abdominal pain- however not improving Oxygen saturations 97% on 2 L -> 86% on RA - check cxr - encourage IS and ambulation # CP- remain resolved - TELE (personally reviewed and interpreted) atrial fibrillation 80-90's troponin x 3 negative - restarted Plavix - continue metoprolol # atrial fibrillation-rates improved control - creatinine 1.0 - cont metoprolol 25mg BID - restarted Eliquis # Acute constipation - increase bowel regimen - ambulation # prophylaxis - Eliquis # diet regular # disposition suspect - snf tomorrow I have discussed the case with RN- encourage mobilization Subjective: pain improved Objective: Vital Signs Temp Pulse Resp BP Pulse Ox 37.1 C 95 18 145/93 H 79 L 09/16/17 07:25 09/16/17 07:25 09/16/17 07:25 09/16/17 07:25 09/16/17 09:50 Laboratory Results 09/15/17 03:55 09/13/17 18:12 09/15/17 09/16/17 09/17/17 05:59 05:59 05:59 Intake Total 700 1220 Output Total 225 600 Balance 475 620 - Physical Exam Constitutional: no apparent distress Eyes: anicteric sclera Ears, Nose, Mouth, Throat: moist mucous membranes Cardiovascular: regular rate and rhythym Respiratory: no respiratory distress, No expiratory wheeze Gastrointestinal: normoactive bowel sounds Genitourinary: no bladder fullness Skin: warm Musculoskeletal: No asymmetric calves Neurologic: AAOx3 Psychiatric: interacting appropriately Lymph, Heme, Immunologic: no cervical LAD ICD10 Worksheet Patient Problems: Problems Problem Status Onset Epistaxis Acute Rapid atrial fibrillation Acute
[2017-09-16] MEDS ORDERED: BISACODYL 10 MG SUPP PR PRN (13:49)
[2017-09-16] MEDS ORDERED: POLYETHYLENE GLYCOL 3350 17 GM PKT PO PRN (13:49)
[2017-09-16] MEDS ORDERED: MAGNESIUM CITRATE 300 ML BOTTLE PO ONE ×2 (13:50→16:30)
--- NOTE | 2017-09-16 16:25 | ASMTCMCOM ---
CM Note CM Note Notes: Chart reviewed. Patient to go to [facility] tomorrow. They center will provide transport. is aware. CM to follow. Date Signed: 09/16/2017 04:24 PM Electronically Signed By:Nataliia Talbot RN
--- NOTE | 2017-09-16 17:26 | SOAPPROG ---
SOAP Progress Note Assessment/Plan: Assessment: Assessment/Plan: 81 Y M s/p lap bilateral inguinal hernia repair, POD#1. Hx afib. CAD c stent. On eliquis and plavix at home. S: Doing well. Passing flatus and BMs. Eager to be discharged. Denies nausea. O: alert, nad ctab irregular rhythm abd soft inc cdi Plan: Discharge to SNF. Pt going tomorrow. Discussed with Dr. Ballard. 09/16/17 17:24 Objective: Vital Signs Temp Pulse Resp BP Pulse Ox 36.8 C 89 12 138/81 H 98 09/16/17 16:00 09/16/17 16:00 09/16/17 16:00 09/16/17 16:00 09/16/17 16:00 Laboratory Results 09/15/17 03:55 09/13/17 18:12 09/15/17 09/16/17 09/17/17 05:59 05:59 05:59 Intake Total 700 1220 Output Total 225 600 Balance 475 205 ICD10 Worksheet Patient Problems: Problems Problem Status Onset Epistaxis Acute Rapid atrial fibrillation Acute
--- NOTE | 2017-09-16 17:33 | PDIAF ---
- Diagnosis Code Status: Full Code - Medication Management Discharge Medications: Medications to Continue on Transfer Atorvastatin Calcium [Lipitor 20 mg (*)] 20 mg PO DAILY 03/28/16 [Last Taken 05/21] C/E/Zn/Cu/OM3/DHA/EPA/LUT/ZEAX [Preservision Areds 2 Softgel] 1 each PO BID [Last Taken 09/06/17] Escitalopram Oxalate [Lexapro 10 MG] 10 mg PO DAILY 03/28/16 [Last Taken ] Tadalafil [Cialis] 5 mg PO HS 03/28/16 [Last Taken 09/11/17] Acetaminophen [Tylenol ES 500 mg (*)] 1,000 mg PO Q8 09/13/17 [Last Taken 08:00] Bevacizumab [Avastin] 1 dose RTEYE .Q6WK 09/13/17 [Last Taken 09/06/17] Eyelea Injection 1 dose LEFTEYE .Q6WK 09/13/17 [Last Taken 09/06/17] Gabapentin [Neurontin 100 MG (*)] 100 mg PO TID 09/13/17 [Last Taken 09/12/17] Metoprolol Tartrate [Lopressor 25 mg (*)] 25 mg PO BID 09/13/17 [Last Taken 08:00] oxyCODONE IR [Oxycodone Ir (*)] 5 mg PO Q4 PRN 09/13/17 [Last Taken Unknown] Apixaban [Eliquis] 5 mg PO BID #0 09/14/17 [Last Taken 09/11/17 18:00] Clopidogrel Bisulfate [Plavix (*)] 75 mg PO DAILY #30 tab 09/14/17 [Last Taken 09/09/17] Apixaban [Eliquis] 5 mg PO BID tab 09/16/17 [Last Taken Unknown] Clopidogrel Bisulfate [Plavix (*)] 75 mg PO DAILY tab 09/16/17 [Last Taken Unknown] Polyethylene Glycol 3350 [Miralax 17 gm (*)] 17 gm PO DAILY PRN pkt 09/16/17 [ Last Taken Unknown] Discharge Medications: Refer to the Discharge Home Medication list for PRN reason. PICC Care - Routine: N/A - Orders Services needed: Registered Nurse, Physical Therapy, Occupational Therapy Isolation Type: None Diet Recommendation: no restrictions on diet Diet Texture: Regular Texture Diet Weigh Patient: weekly Malik: No Wound Care Instructions: may shower, but no soaking in bathtubs or pools. Gently wash over steri strips, but do not removed. They will come off on their own. Activity/Weight Bearing Restrictions: Avoid lifting over 15lbs for the first two weeks. Ok to ambulate with walker. Equipment: Oxygen - Follow Up Care Current Providers and Referrals: Chelita Abreu MD [Primary Care Provider] - Cortes Ballard MD [Medical Doctor] - follow up in 2 weeks
--- NOTE | 2017-09-16 18:21 | SOAPPROG ---
HANDY Progress Note Assessment/Plan: Assessment: doing ok after lap bih/ ready for rehab Plan:transfer to rehab 09/16/17 18:21 Objective: Vital Signs Temp Pulse Resp BP Pulse Ox 36.8 C 89 12 138/81 H 98 09/16/17 16:00 09/16/17 16:00 09/16/17 16:00 09/16/17 16:00 09/16/17 16:00 Laboratory Results 09/15/17 03:55 09/13/17 18:12 09/15/17 09/16/17 09/17/17 05:59 05:59 05:59 Intake Total 700 1220 726 Output Total 225 600 450 Balance 475 620 276 ICD10 Worksheet Patient Problems: Problems Problem Status Onset Epistaxis Acute Rapid atrial fibrillation Acute
[2017-09-16] MEDS: OXYCODONE/APAP 5/325 TAB PO PRN ×2 (19:49→20:46)
[2017-09-16] MEDS: NON-FORMULARY NEW DRUG (Tadalafil [Cialis] 5 MG) PO SCH (20:10)
[2017-09-17] MEDS: OXYCODONE/APAP 5/325 TAB PO PRN ×3 (01:52→18:11)
[2017-09-17] MEDS: DOCUSATE SODIUM 100 MG CAP PO SCH ×2 (08:19→21:13)
[2017-09-17] MEDS: ACETAMINOPHEN 325 MG TAB PO PRN (08:19)
[2017-09-17] MEDS: METOPROLOL TARTRATE 25 MG TAB PO SCH ×2 (08:19→21:12)
[2017-09-17] MEDS: ATORVASTATIN CALCIUM 20 MG TAB PO SCH (08:19)
[2017-09-17] MEDS: CLOPIDOGREL BISULFATE 75 MG TAB PO SCH (08:19)
[2017-09-17] MEDS: PRESERVISION AREDS2 FORMULA EYE VIT 1 EACH PO SCH ×2 (08:19→21:13)
[2017-09-17] MEDS: APIXABAN 5 MG TAB PO SCH (08:19)
[2017-09-17] MEDS: ESCITALOPRAM OXALATE 10 MG TAB PO SCH (08:19)
[2017-09-17] MEDS: GABAPENTIN 100 MG CAP PO SCH ×3 (08:19→21:13)
--- NOTE | 2017-09-17 09:42 | SOAPPROG ---
SOAP Progress Note Assessment/Plan: Assessment/Plan: Called per protocol for code blue. The patient apparently had some neurologic deficits prior to be unresponsive. His says he was unable to open his right high and looked bad when she arrived 20 minutes before the code. The patient subsequently regained spontaneous respiration pulse he is mentating well. His history significant for previous coronary artery disease, atrial fibrillation, TIA. He has had recent symptoms that would be suggestive TIA on Tuesday. Currently he had undergone laparoscopic inguinal hernia repair. Alert oriented to person place time Lungs clear Heart rate 120s irregular EKG pending Abdomen soft appropriate bruising nontender incisions clean dry and intact Impression likely cardiac related possible TIA Transfer to step-down workup pending. Discussed with Dr. De La Garza covering physician for Dr. Ballard 09/17/17 09:39 Objective: Vital Signs Temp Pulse Resp BP Pulse Ox 37.1 C 98 20 123/80 H 91 L 09/17/17 07:21 09/17/17 07:21 09/17/17 07:21 09/17/17 07:21 09/17/17 07:21 Laboratory Results 09/15/17 03:55 09/13/17 18:12 09/16/17 09/17/17 09/18/17 05:59 05:59 05:59 Intake Total 1220 1676 Output Total 600 1500 Balance 620 176 ICD10 Worksheet Patient Problems: Problems Problem Status Onset Epistaxis Acute Rapid atrial fibrillation Acute
--- NOTE | 2017-09-17 09:50 | SOAPPROG ---
SOAP Progress Note Assessment/Plan: Assessment: 81 yo s/p bilateral hernia repair Unresponsive code blue called regained consciousness 1) transfer to ICU 2) Head CT 3) Abdomen and Pelvis CT - firm abdomen and H/H down to 11.2 from 15 ?Vagal ?TIA ?Hematoma ?Cardiac s: Awake, not oriented to place, "something is not right" General: Pleasant, thin man lying in bed HENT: Normocephalic, no gross hearing deficits, mucous membranes moist, pupils equal and round, no scleral icterus. RIGHT LID LAG Lungs: Clear to auscultation bilaterally, No increased work of breathing Cardiac: Tachycardic, Abdomen: Bowel sounds present, very tender lower abdomen. Incisions cdi. Abdomen is more firm than expected. : Ecchymosis penis and scrotum. Skin: Warm and dry. Neuro: Some issues with word finding, oriented to person Plan: 09/17/17 09:45 Objective: Vital Signs Temp Pulse Resp BP Pulse Ox 37.1 C 98 20 123/80 H 91 L 09/17/17 07:21 09/17/17 07:21 09/17/17 07:21 09/17/17 07:21 09/17/17 07:21 Laboratory Results 09/15/17 03:55 09/13/17 18:12 09/16/17 09/17/17 09/18/17 05:59 05:59 05:59 Intake Total 1220 1676 Output Total 600 1500 Balance 620 176 ICD10 Worksheet Patient Problems: Problems Problem Status Onset Epistaxis Acute Rapid atrial fibrillation Acute
[2017-09-17] MEDS ORDERED: IOPAMIDOL (ISOVUE-300) 100 ML BTL ONE (10:19)
[2017-09-17 10:25] LABS: PLATELET COUNT 208 10^3/uL (150-400)
[2017-09-17] MEDS ORDERED: IOPAMIDOL (ISOVUE 370) 100 ML BTL IV ONE (10:29)
--- NOTE | 2017-09-17 10:31 | CPEKG ---
Heart Rate: 101 RR Interval: 594 QRSD Interval: 90 QT Interval: 372 QTC Interval: 483 QRS [place]: 0 T Wave [place]: -29 EKG Severity - ABNORMAL ECG - EKG Impression: ATRIAL FIBRILLATION, V-RATE 69-152 EKG Impression: MULTIFORM VENTRICULAR PREMATURE COMPLEXES EKG Impression: BORDERLINE T ABNORMALITIES, DIFFUSE LEADS Electronically Signed By: Francisco Ruby 18-Sep-2017 12:10:31
--- NOTE | 2017-09-17 11:33 | GCON ---
[f rep st] CONSULTATION [employer] CONSULTATION REASON FOR CONSULTATION: Altered mental status, status post Code Blue. HISTORY OF PRESENT ILLNESS: Mr. Mendoza is an extremely pleasant 81-year-old white male with an exte nsive past medical history, including coronary artery disease (requiring stent), hypertension, atrial fibrillation, and congestive heart failure. He was admitted after laparoscopic bilateral hernia rep air. This occurred 09/13. He was slowly improving; however, on the morning of 09/17 he became unres ponsive. A Code Blue was called; however, he recovered shortly thereafter. He was then transferred to the step-down unit. His only current complaint is chest pain. He denies any current breathlessne ss. He admits to some low quadrant left inguinal pain as well. There has been no fever or night swe ats. No nausea, vomiting, or diarrhea. Currently, he is resting comfortably. REVIEW OF SYSTEMS: 10-point was performed and is negative except for those listed in HPI. PAST MEDICAL HISTORY: Again, significant for congestive heart failure, atrial fibrillation, coronary disease (requiring stent), and hypertension. PAST SURGICAL HISTORY: He has had lumbar surgery, knee surgery, sinus surgery, and recent bilateral laparoscopic hernia repair. ALLERGIES: Hydrocodone and sulfa eye solution. SOCIAL HISTORY: Very, very distant history of tobacco use; none in the last 40 or 50 years. He gale es any alcohol use. He is and has excellent family support. FAMILY HISTORY: Noncontributory. PHYSICAL EXAMINATION: VITAL SIGNS: Blood pressure is 123/80, pulse 90, respirations 20, temperature 37, 1, oxygen saturation 91% on 2 L. GENERAL: A thin, somewhat cachectic elderly white male who is resting comfortably in minimal distress. HEENT: Eyes are PERRLA. EOMI. He has bilateral arcus se nilis present. Throat shows no erythema or tonsillar hypertrophy. NECK: Supple. No cervical adeno mauricio. HEART: Regular rate and rhythm with a 2/6 systolic murmur at the left sternal border without radiation. LUNGS: Diminished breath sounds but no wheeze. ABDOMEN: Soft. Some left lower quadra nt tenderness. EXTREMITIES: No clubbing, cyanosis, or edema. LABORATORIES: White count 9.2, hemoglobin 11, hematocrit 33, platelet count is 208. Sodium 141, pot assium 4.6, chloride 100, CO2 30, BUN 24, creatinine is 1.0, glucose 125. Chest x-ray shows cardiomegaly but nothing acute. IMPRESSION: 1. Status post code, etiology which is unclear at this time. 2. Chest pain. Must take into consideration his recent code that this may be a pulmonary embolus. 3. Abdominal pain. 4. Congestive heart failure. 5. Atrial fibrillation. 6. History of coronary artery disease. RECOMMENDATIONS: 1. Agree with CT scan of the chest per PE protocol, as well as CT scan of the head and abdomen. 2. Supplemental oxygen. 3. DVT and PE prophylaxis. 4. Stress ulcer prophylaxis. 5. Adequate pain control. /[id number]/MODL
[2017-09-17] MEDS: NS 1,000 ML IV SCH (19:30)
--- NOTE | 2017-09-17 19:40 | HOSPPROG ---
Hospitalist Progress Note Assessment/Plan: Assessment: 81 yo M p/w inguinal hernia repair c/b acute omental hematoma, acute blood loss anemia, acute hypoxic resp failure and acute encephalopathy Plan: # acute encephalopathy. evidenced by global brain dysfunction characterized as complete unresponsiveness to sternal rub this AM, an acute change from 10 minutes prior, and lasting several minutes, resolving w/ aggressive tactile stimuli after a Code Blue converged, likely 2/2 acute hypotension in setting of hematoma and also possible concomitant vasovagal episode from the acute pain - triggered Code Blue, team stabilized situation and patient's mental status returned to baseline, but w/ some notable word-finding difficulties and R eyelid palsy, unclear baselines of these two issues - HCT w/o ICH, microvascular ischemia, reports hx of TIA - d/w Dr. Rabago, we agree that a neuro consult to consider possibility of TIA and presence of Afib (w/ anticoagulation indicated), weighing risks vs. benefits of ongoing anticoagulation in setting of this acute hematoma - transferred to SDU - patient expressed that he is DNR/DNI and has been perseverating on a feeling that he is "dying" over the past couple weeks, which he voiced again today, and his /daughter confirmed that he has shared this w/ them outside of the context of this hospitalization as well - we confirmed that he is DNR/DNI - 70 minutes of critical care time spent addressing this issue, at bedside, coordinating Code Blue w/ Stephan Galan, Benji, Fausto and SDU transfer # omental hematoma. acute, likely cause of his acute hypotension during Code Blue (SBP 70), w/ possible vagal event resulting from pain (SBP improved to 130 w/o IVF), and subsequent hematoma noted on CT abd - mgmt under direction of primary, Dr. Rabago/Elio - monitor Hgb - monitor SBP in SDU # acute hypoxic respiratory failure. suspect secondary to splinting with abdominal pain, SpO2 86% on RA - cont IS # acute chest pain. likely atypical, neg trop, EKG w/o ischemic changes - d/w Dr. Lambert, no indication to pursue further risk strat at this time # CAD. chronic, holding plavix given bleed # atrial fibrillation. permanent, present on EKG - currently rate control w/ metop 25 bid, uptitrate if needed - holding eliquis, given hematoma - consulted neuro to determine whether the event above may be more TIA-related and have a stronger indication for eliquis # acute blood loss anemia. Hgb 10s, 2/2 blood loss internally, monitor closely and repeat stat if hypotensive # prophylaxis - scds, holding pharm # diet regular # code - confirmed DNR/DNI # disposition suspect - ADD uncertain, critically ill Subjective: patient w/ chest pain and feels like he is dying, appears comfortable Objective: Vital Signs Temp Pulse Resp BP Pulse Ox 36.9 C 107 H 14 127/76 H 99 09/17/17 16:00 09/17/17 16:00 09/17/17 16:00 09/17/17 16:00 09/17/17 16:00 Laboratory Results 09/17/17 15:15 09/17/17 09:35 09/16/17 09/17/17 09/18/17 05:59 05:59 05:59 Intake Total 1220 1676 525 Output Total 600 1500 300 Balance 620 176 225 - Physical Exam Constitutional: no apparent distress, chronically ill appearing, uncomfortable Cardiovascular: irregularly irregular, tachycardia, No edema Respiratory: no respiratory distress, no rales or rhonchi, clear to auscultation Gastrointestinal: normoactive bowel sounds, tenderness (throughout), distension (moderate), No guarding Skin: other (well healing incision sites) Neurologic: other (AAOx2 person and place) Psychiatric: not anxious, other (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
[2017-09-17] MEDS: HYDROmorphONE/DILAUDID 2 MG/ML INJ IVP PRN (19:47)
[2017-09-17] MEDS: NON-FORMULARY NEW DRUG (Tadalafil [Cialis] 5 MG) PO SCH (21:19)
[2017-09-18] MEDS: OXYCODONE/APAP 5/325 TAB PO PRN ×5 (01:22→23:29)
[2017-09-18] MEDS: ONDANSETRON 4 MG/2 ML VIAL IVP PRN (01:31)
[2017-09-18] MEDS: HYDROmorphONE/DILAUDID 2 MG/ML INJ IVP PRN (04:20)
[2017-09-18 05:35] LABS: PLATELET COUNT 185 10^3/uL (150-400)
[2017-09-18] MEDS: GABAPENTIN 100 MG CAP PO SCH ×3 (08:02→21:28)
--- NOTE | 2017-09-18 10:24 | SOAPPROG ---
SOAP Progress Note Assessment/Plan: Cardiac Assessment: 1. Coronary disease history of PCI 2016. 2. Rapid atrial fibrillation: Chronic. 3. Blood loss with encephalopathy Impression: Awake today without significant complaints. No chest pain, shortness of breath. Telemetry shows atrial fibrillation with a rate of 120 beats per minute. Stable hemodynamics. Troponins remain negative without evidence of acute coronary syndrome. Hold anticoagulation. Rate control with beta-blockade as tolerated. Subjective: 81-year-old well known to me admitted to the ICU with encephalopathy and bleeding. This is in the setting of known coronary disease history of remote PCI, history of chronic atrial fibrillation with rate control strategy and long- term anticoagulation. This morning he is free of chest pain, shortness of breath. Objective: Vital Signs Temp Pulse Resp BP Pulse Ox 37.3 C 124 H 22 H 127/69 H 97 09/18/17 08:00 09/18/17 08:00 09/18/17 08:00 09/18/17 08:00 09/18/17 08:00 Laboratory Results 09/18/17 05:15 09/18/17 05:15 09/17/17 09/18/17 09/19/17 05:59 05:59 05:59 Intake Total 1676 1373 Output Total 1500 500 Balance 176 873 Laboratory Tests 09/14/17 09/14/17 09/17/17 00:30 04:50 09:35 Creatinine Troponin I < 0.012 < 0.012 < 0.012 09/18/17 05:15 Creatinine 1.0 Troponin I Physical Exam - Physical Exam General Appearance: alert, no apparent distress EENT: pale conjunctiva (R), pale conjunctiva (L) Neck: non-tender Respiratory: lungs clear Cardiac/Chest: irregularly irregular Skin: pallor Extremities: No pedal edema, No calf tenderness Neuro/Psych: alert, No facial droop ICD10 Worksheet Patient Problems: Problems Problem Status Onset Epistaxis Acute Rapid atrial fibrillation Acute
--- NOTE | 2017-09-18 10:27 | GCON ---
[f rep st] CONSULTATION NEUROLOGIC CONSULTATION REFERRING PHYSICIAN: Armani Sloan MD HISTORY: The patient is an 81-year-old gentleman who has been seen in our clinic most recently in 2015, but is here in the hospital related to hernia repair. He had uneventful surgery, but ye day had a Code Blue called when his says she noticed he had a slight drooping of his right e yelid, she stepped out of the room briefly, and when she came back, he was cool and clammy, and she c alled for help. The hospitalist, Dr. Sloan, responded among the code team and documented that there was acute encephalopathy triggered by hypotension, likely in the setting of his hematoma in the abdo men. His mental status fairly quickly returned to his baseline with some word-finding difficulties, and was transferred to the ICU setting. His family provides additional history that there has been a n evolution of cognitive decline over many months if not the last few years. He has a significant pr oblem with short-term memory and generally scores in the 12-15 range when he has had mini-mental stat us tested in the past. With his event yesterday, there was a systolic blood pressure around 70, but he fairly quickly had improvement. He did not require pressors. The family has noted some occasional events with unexplained falls as well as times where there has b een some slurring of speech, which can occur as an episode or just as a variation of how he is doing depending on the time of day and effects of medications. He was supposed to be on anticoagulation fo r his atrial fibrillation for indefinite timeframe except for the preparation for surgery. He is nor compa on Eliquis. He was also on Plavix in addition to that for stenting, and these were stopped mane or to surgery and then resumed but now ceased again because of the hemorrhage. When he was seen in 2015, there were reports where he had an episode of confusion for about 30 seconds that resol keara. He was having ongoing problems for months related to balance. Trouble coming up with names was being documented at that time. Eventually, he usually comes up with names. He was tending to repea t himself. There have been times with excessive sleeping for which they have tried to adjust medicat ions so he is not as tired. Additional past medical history is notable for the atrial fibrillation, coronary stenting, BPH, burni ng mouth syndrome, depression, nosebleed, fatigue, hypertension, macular degeneration, prior TIA, spi ne surgery, shoulder and sinus surgery, TURP, varicose vein. FAMILY HISTORY: Colon cancer and hypertension. SOCIAL HISTORY: Rare alcohol consumption. He is a nonsmoker. 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 After that prior visit in our office in 2016, we obtained a brain MRI which showed old bilateral smal l hemorrhages suggestive of amyloid angiopathy and prominent microvascular disease. These changes of suspected old hemorrhage did not show any actual hematoma. He had a normal EEG at that time. Currently in the hospital, he is getting pain medication as needed, Lexapro, gabapentin, fluids, Lipi tor, but is not on anticoagulation or antiplatelet therapy for now because of the bleeding. Head CT from yesterday did not show any acute pathology. The abdominal CT shows a large anterior omental hem atoma within the pelvis extending to the left inguinal canal. Blood products were extended into the retroperitoneum next to the left psoas muscle. PHYSICAL EXAM: VITAL SIGNS: This morning, blood pressure is 127/69, pulse is 124 with atrial fibril lation on monitor, respiratory rate 22, temperature 37.3. GENERAL: He is an older gentleman who micah ears a bit frail. HEENT: Eyes clear. Oropharynx is very dry. NECK: Supple with no bruits or mass es. CARDIAC: Irregular rhythm but no murmurs. NEUROLOGIC: He is lethargic, having received some p ain medicines recently, but can be aroused to answer some questions. He is oriented to being in the hospital in [place]. He did not know the month or the year. He can follow commands. He can tell me a little bit about what he did in the past. He recognizes family members and can correctly tell me their names. He has some tendency to drift off to sleep during conversation, but can fairly easily b e aroused with light stimulation to continue communicating. He is not aphasic. He may have a little trouble coming up with exactly what he wants to say, but is more of a slowness than an aphasia. I d o not detect a definite dysarthria. He can make occasional jokes which are appropriate in context. Pupils 2 mm and reactive. Extraocular movements are intact. There is not a distinct ptosis, though I think the right eyelid may be slightly drooped compared to the left, but this is hard to say since he is pretty tired right now. I did not see a fatigue of up-gaze on sustained testing. He complaine d of no double vision in any direction of gaze nor fatigability of eye movements. Facial symmetry is present with reasonably good strength testing by smile, wrinkling his nose, and closing his eyes deep y tightly. Palate elevates symmetrically. Tongue protrudes midline. Hearing is preserved. On sheba r testing, he has relatively well-maintained bulk for his age, and the strength is a solid 4/5 to 4+/ 5 in all the extremities. Sensation is preserved for temperature and light touch. No ataxic movemen ts in the upper extremities. Reflexes 1+. No pathologic reflexes. Diagnostic studies as outlined above. ASSESSMENT/RECOMMENDATIONS: Today's total unit time of 70 minutes, predominantly counseling, coordin ation of care, reviewing everything with family and discussing with the medical team, and setting up decisions from a neurologic standpoint on how best to proceed. I believe the patient yesterday had a n event related to hypotension with vasovagal phenomena rather than a primary transient ischemic sushil ck. I do not think he had an embolic event or local thrombosis, but just relative hypotension-induce d symptoms. He has a complex history of fluctuating neurologic symptoms over time and most likely yadav s a diagnosis of dementia, which could be a combination of vascular disease and perhaps Alzheimer dis ease. There is not evidence of an acute stroke. He remains at significant risk for stroke or TIA of f anticoagulation or antiplatelet therapy, but the risks outweigh the potential benefits given the ab dominal hematoma. There was also further evidence in the past of some amyloid angiopathy, which can be a relative contraindication to anticoagulation, although the degree of micro bleeds was small at t hat time in 2016. If the abdominal hematoma can be stabilized and he gets through all of his acute i llness, then further discussions can be held on the risks and benefits of resuming anticoagulation fo r secondary stroke prophylaxis. Further outpatient assessment of cognitive status and consideration for potential interventions were briefly discussed with the family, but this is not the time to make those decisions, and they fully u nderstand that. They understand that he would be at risk of worsening cognitive status just from und ergoing anesthesia, but they would want to make decisions with the surgeon as to the risks and benefi ts of potentially doing abdominal surgery and looking for a source of bleeding, which I would defer t o that team. I will have my colleague follow up tomorrow to monitor his neurologic status and answer further quest ions for the family as needed. /[id number]/MODL
[2017-09-18] MEDS: METOPROLOL TARTRATE 25 MG TAB PO SCH ×2 (10:44→21:27)
[2017-09-18] MEDS: ESCITALOPRAM OXALATE 10 MG TAB PO SCH (10:49)
[2017-09-18] MEDS: DOCUSATE SODIUM 100 MG CAP PO SCH ×2 (10:49→21:28)
[2017-09-18] MEDS: ATORVASTATIN CALCIUM 20 MG TAB PO SCH (10:49)
--- NOTE | 2017-09-18 11:27 | PDINTPN ---
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 Denies any breathlessness. Objective: Vital Signs Temp Pulse Resp BP Pulse Ox 37.3 C 119 H 22 H 101/61 97 09/18/17 08:00 09/18/17 10:44 09/18/17 08:00 09/18/17 10:44 09/18/17 08:00 Laboratory Results 09/18/17 05:15 09/18/17 05:15 09/17/17 09/18/17 09/19/17 05:59 05:59 05:59 Intake Total 1676 1373 Output Total 1500 500 Balance 176 873 - Time Spent With Patient Time Spent With Patient: 25 min of time spent with patient, over 1/2 involved coordination of care or counseling Physical Exam - Physical Exam General Appearance: alert, no apparent distress EENT: PERRL/EOMI Neck: non-tender, full range of motion, supple, normal inspection Respiratory: chest non-tender, lungs clear, normal breath sounds Cardiac/Chest: normal peripheral pulses, systolic murmur, irregularly irregular Abdomen: normal bowel sounds, non-tender, soft Male Genitalia: deferred Rectal: deferred Skin: normal color, warm/dry Extremities: normal range of motion, non-tender, normal inspection, normal capillary refill Neuro/Psych: alert ICD10 Worksheet Patient Problems: Problems Problem Status Onset Epistaxis Acute Rapid atrial fibrillation Acute
--- NOTE | 2017-09-18 12:02 | HOSPPROG ---
Hospitalist Progress Note Assessment/Plan: 81 yo M p/w inguinal hernia repair c/b acute omental hematoma, acute blood loss anemia, acute hypoxic resp failure and acute encephalopathy # acute encephalopathy. -Improving -?TIA, CT Brain with no acute findings -Neuro consult pending -Holding Plavix #ABLA secondary to omental hematoma/bleed -Transfuse one unit now -Hold off on surgical management, he is now off plavix and Eliquis -He is very high risk for stroke and would consider restarting Eliquis soon #s/p Code blue 09/17: no CPR was started, etiology is unclear #Hypotension and hx of HTN -should improve with PRBC transfusion #S/P Inguinal hernia repair #Afib: Rate has been increasing -cont with metoprolol BID at current dose -Cards is following -Expect some improvement with transfusion #Acute Hypoxic resp failure # CAD. chronic, holding plavix given bleed # CHF #likely protein calorie malnutrition. -Minimal oral intake -cont IVF + regular diet -nutrition consult -May need additional nutrition # prophylaxis - scds, holding pharm # diet regular # code - DNR/DNI # disposition suspect - ADD uncertain, critically ill total critical care time spent on this patient with Acute blood loss anemia who is intermittently hypotensive and in need of transfusion is 35 minutes. D/w team during rounds. D/W family at bedside Subjective: confused. awake. Reports abdominal pain. Minimal oral intake. Objective: Vital Signs Temp Pulse Resp BP Pulse Ox 37.3 C 119 H 22 H 101/61 97 09/18/17 08:00 09/18/17 10:44 09/18/17 08:00 09/18/17 10:44 09/18/17 08:00 Laboratory Results 09/18/17 05:15 09/18/17 05:15 09/17/17 09/18/17 09/19/17 05:59 05:59 05:59 Intake Total 1676 1373 Output Total 1500 500 Balance 176 873 - Physical Exam Constitutional: no apparent distress Eyes: PERRL Ears, Nose, Mouth, Throat: moist mucous membranes Cardiovascular: irregularly irregular, tachycardia Respiratory: no respiratory distress, no rales or rhonchi Gastrointestinal: No rebound, No distension Skin: warm Musculoskeletal: generalized weakness Neurologic: No AAOx3 Psychiatric: encephalopathic Lymph, Heme, Immunologic: No petechiae ICD10 Worksheet Patient Problems: Problems Problem Status Onset Epistaxis Acute Rapid atrial fibrillation Acute
--- NOTE | 2017-09-18 12:18 | SOAPPROG ---
SOAP Progress Note Assessment/Plan: Assessment: 81 yo s/p bilateral hernia repair Abdomen CT with hematoma at omentum Still confusion at night Holding Plavix and Elaquis - tricky situation because bleeding and also has high stroke risk due to a fib and history of TIAs H/H trending down, 1 unit PRBC Will check h/h this evening and again in the am s: Awake, family at bedside General: Pleasant, thin man lying in bed HENT: Normocephalic, no gross hearing deficits, mucous membranes moist, pupils equal and round, no scleral icterus. RIGHT LID LAG Lungs: Clear to auscultation bilaterally, No increased work of breathing Cardiac: irregular rate Abdomen: Bowel sounds present, more distended today but softer. Most firm by inferior incision. Incisions cdi : Ecchymosis penis and scrotum. Skin: Warm and dry. Plan: 09/17/17 09:45 09/18/17 12:14 Objective: Vital Signs Temp Pulse Resp BP Pulse Ox 37.3 C 119 H 22 H 101/61 97 09/18/17 08:00 09/18/17 10:44 09/18/17 08:00 09/18/17 10:44 09/18/17 08:00 Laboratory Results 09/18/17 05:15 09/18/17 05:15 09/17/17 09/18/17 09/19/17 05:59 05:59 05:59 Intake Total 1676 1373 Output Total 1500 500 Balance 176 873 ICD10 Worksheet Patient Problems: Problems Problem Status Onset Epistaxis Acute Rapid atrial fibrillation Acute
[2017-09-18] MEDS: PRESERVISION AREDS2 FORMULA EYE VIT 1 EACH PO SCH ×2 (19:27→21:28)
[2017-09-18] MEDS: NS 1,000 ML IV SCH (21:28)
[2017-09-18] MEDS: NON-FORMULARY NEW DRUG (Tadalafil [Cialis] 5 MG) PO SCH (21:38)
[2017-09-19 04:26] LABS: PLATELET COUNT 155 10^3/uL (150-400)
[2017-09-19] MEDS: OXYCODONE/APAP 5/325 TAB PO PRN ×4 (07:16→23:04)
[2017-09-19] MEDS: ESCITALOPRAM OXALATE 10 MG TAB PO SCH (09:28)
[2017-09-19] MEDS: ATORVASTATIN CALCIUM 20 MG TAB PO SCH (09:29)
[2017-09-19] MEDS: GABAPENTIN 100 MG CAP PO SCH ×3 (09:29→20:11)
[2017-09-19] MEDS: METOPROLOL TARTRATE 25 MG TAB PO SCH ×2 (09:29→20:10)
[2017-09-19] MEDS: PRESERVISION AREDS2 FORMULA EYE VIT 1 EACH PO SCH ×2 (09:29→20:11)
[2017-09-19] MEDS: DOCUSATE SODIUM 100 MG CAP PO SCH ×2 (09:29→20:11)
--- NOTE | 2017-09-19 10:01 | SOAPPROG ---
SOAP Progress Note Assessment/Plan: Assessment/Plan: 81 Y M s/p lap bilateral inguinal hernia repair, POD#6. Hx afib. CAD c stent. On eliquis and plavix at home. Acute blood loss anemia. +omental hematoma with extension to retroperitoneum. 1 uPRBs overnight. H&H down. Serial H&H's ordered. Plavix and Eliquis held. Continue to observe, but if continues to bleed could need surgery. Discussed with Dr. Ballard who will see patient this am. Chest pain. Resolved. Very much appreciate cardiology and medicine input and care. Hernia repair. Wounds intact. Hernia repairs intact. Dispo: initially held pending cardiology and medicine clearance. Cleared but then held for PT/OT reasons and awaiting SNF placement. Now holding until hemodynamically stable. S: +pain when having infrequent hiccups. says mouth is dry and "he's in a lot of trouble." O: alert, nad no wob irregular rhythm abd distended inc cdi no recurrent hernias 09/19/17 09:56 Objective: Vital Signs Temp Pulse Resp BP Pulse Ox 36.9 C 135 H 18 118/86 H 94 09/19/17 04:00 09/19/17 09:29 09/19/17 06:20 09/19/17 09:29 09/19/17 06:20 Laboratory Results 09/19/17 08:40 09/19/17 04:10 09/18/17 09/19/17 09/20/17 05:59 05:59 05:59 Intake Total 1373 1290 Output Total 500 380 Balance 873 910 ICD10 Worksheet Patient Problems: Problems Problem Status Onset Epistaxis Acute Rapid atrial fibrillation Acute
[2017-09-19 10:14] LABS: INR 1.49 (0.83-1.16); PROTIME(PATIENT) 18.2 SEC (12.0-15.0)
--- NOTE | 2017-09-19 10:25 | NEUROPROG ---
Assessment: 1. Transient neurologic symptoms, resolved 2. Status post hernia repair 3. History of atrial fibrillation 35 total minutes floor time; reviewing patient's history, neurological notes. Essentially, the patient is thought to have had a vasovagal type event and is now back to baseline. He has a background of chronic short-term memory changes in balance decline over the last 1-2 years. Recommendations: 1. No further recommendations now from a neurologic standpoint. We will sign off and follow up as needed. Please do not hesitate to call with any questions or changes in neurologic status with this very pleasant patient. 2. He should restart novel oral anticoagulation when cleared by Dr. Ballard. 3. I recommended he follow up with Dr. Shahid in 1-2 months as an outpatient to further discuss his background changes and short-term memory for further evaluation treatment. They are agreeable. Subjective: No new symptoms Objective: Vital Signs Temp Pulse Resp BP Pulse Ox 36.9 C 135 H 18 118/86 H 94 09/19/17 04:00 09/19/17 09:29 09/19/17 06:20 09/19/17 09:29 09/19/17 06:20 Laboratory Results 09/19/17 08:40 09/19/17 04:10 09/18/17 09/19/17 09/20/17 05:59 05:59 05:59 Intake Total 1373 1290 Output Total 500 380 Balance 873 910 PT 18.2 SEC (12.0-15.0) H 09/19/17 09:50 INR 1.49 (0.83-1.16) H 09/19/17 09:50 Awake and alert No aphasia Allergies/Adverse Reactions: hydrocodone [From Vicodin] Allergy (Verified 09/12/17 17:53) Vomiting SULFA EYE SOLUTION Allergy (Mild, Uncoded 03/29/16 01:12) ITCHY/IRRITATED EYE LIDS
--- NOTE | 2017-09-19 10:31 | SOAPPROG ---
SOAP Progress Note Assessment/Plan: Cardiac Assessment: 1. Coronary disease history of PCI 2017. 2. Rapid atrial fibrillation: Chronic. 3. Blood loss with encephalopathy Impression: Awake today without significant complaints. No chest pain, shortness of breath. Telemetry shows atrial fibrillation with a rate of 120 beats per minute. Stable hemodynamics. Troponins remain negative without evidence of acute coronary syndrome. Hold anticoagulation. Rate control with beta-blockade as tolerated. 09/19/17 10:29 Impression: No cardiac complaints with improving heart rate after blood. No new cardiac issues. Continue follow-up from a distance. Subjective: Feeling okay. Continuing to bleed. No chest pain shortness of breath. No palpitations. Objective: Vital Signs Temp Pulse Resp BP Pulse Ox 36.9 C 135 H 18 118/86 H 94 09/19/17 04:00 09/19/17 09:29 09/19/17 06:20 09/19/17 09:29 09/19/17 06:20 Laboratory Results 09/19/17 08:40 09/19/17 04:10 09/18/17 09/19/17 09/20/17 05:59 05:59 05:59 Intake Total 1373 1290 Output Total 500 380 Balance 873 910 PT 18.2 SEC (12.0-15.0) H 09/19/17 09:50 INR 1.49 (0.83-1.16) H 09/19/17 09:50 Physical Exam - Physical Exam General Appearance: alert, no apparent distress Neck: supple Respiratory: chest non-tender, lungs clear Cardiac/Chest: irregularly irregular Abdomen: soft Skin: warm/dry Neuro/Psych: alert, No facial droop ICD10 Worksheet Patient Problems: Problems Problem Status Onset Epistaxis Acute Rapid atrial fibrillation Acute
--- NOTE | 2017-09-19 12:51 | PDINTPN ---
Strategic Marketing Leader Progress Note Assessment/Plan: Assessment/plan: 81 M with BPH, afib, CAD, HTN admitted 09/14 for laparoscopic bilateral hernia repair with mesh, complicated by hypotension on HD#3, associated with mental status changes and erroneously called as a code blue (rapid spontaneous recovery and no CPR). Neurology evaluation subsequently said no TIA/CVA and abdominal CT revealed large anterior omental hematoma on 09/17. He required one unit RBC on 09/18 with an H/H of 8.8/26.5, followed by an additional unit 09/19 for 7.8/23.4. He also developed slight RVR (to 140 bpm) and started metoprolol, but his BP has remained stable as has his O2 needs. He is quite concerned about GILMORE, but a scan 09/17 showed only 100 cc (repeat pending) and he currently does not have a galvez. * Abdominal hematoma- possible continued oozing. Second transfusion in <24 hours , but hemodynamics OK. Will recheck post RBC today. Dr. Ballard aware and is expected back later this afternoon. Coags are unremarkable and platelets are fine. Scrotal edema/purpura is likely dependent flow from above. * BPH/GILMORE- repeat scan pending, but low threshold for galvez (patients prefers to wait). Creatinine is normal * Atrial fibrillation- currently rate controlled on metoprolol. Holding anticoag given bleeding issues. 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 * Dementia? will need outpatient workup once stabilized. Appreciate neuro care. * Anemia- as above with frequent CBC * * Subjective: c/o ongoing abdominal pain and urinary urgency. Objective: Vital Signs Temp Pulse Resp BP Pulse Ox 36.9 C 104 H 22 H 104/62 99 09/19/17 12:00 09/19/17 12:00 09/19/17 12:00 09/19/17 12:00 09/19/17 12:00 Laboratory Results 09/19/17 08:40 09/19/17 04:10 09/18/17 09/19/17 09/20/17 05:59 05:59 05:59 Intake Total 1373 1290 Output Total 500 380 Balance 873 910 PT 18.2 SEC (12.0-15.0) H 09/19/17 09:50 INR 1.49 (0.83-1.16) H 09/19/17 09:50 Physical Exam - Physical Exam General Appearance: alert, no apparent distress, thin EENT: PERRL/EOMI Neck: supple Respiratory: lungs clear, normal breath sounds, No respiratory distress, No accessory muscle use, No rales, No rhonchi, No wheezing Cardiac/Chest: normal peripheral pulses, irregularly irregular, No edema Abdomen: normal bowel sounds, guarding, other (diffuse tender with ecchymoses in midline), No pulsatile mass Male Genitalia: other (significant edema and eccymoses) Skin: normal color, warm/dry, No cyanosis Extremities: No pedal edema Neuro/Psych: alert, normal mood/affect ICD10 Worksheet Patient Problems: Problems Problem Status Onset Epistaxis Acute Rapid atrial fibrillation Acute
--- NOTE | 2017-09-19 13:17 | HOSPPROG ---
Hospitalist Progress Note Assessment/Plan: # POD#6 s/p bilat hernia repair, now with omental hematoma - CT today to evaluate - holding blood eliquis, plavix # ABLA d/t hematoma # CAD, PCI 2017 - had an episode of CP (neg trops) - cont metop, holding plavix # a-fib, chronic - cont metop, hold eliquis # tachycardia - better with transfusion # acute encephalopathy - d/t above; has some underlying dementia # code blue 09/17 (no CPR) - likely vaso-vagal in setting on intra-abdominal hematoma # likely protein calorie malnutrition # ppx - SCDs # DNR/DNI Subjective: still somewhat confused; abd pain tolerable Objective: Vital Signs Temp Pulse Resp BP Pulse Ox 36.9 C 104 H 22 H 104/62 99 09/19/17 12:00 09/19/17 12:00 09/19/17 12:00 09/19/17 12:00 09/19/17 12:00 Laboratory Results 09/19/17 08:40 09/19/17 04:10 09/18/17 09/19/17 09/20/17 05:59 05:59 05:59 Intake Total 1373 1290 Output Total 500 380 Balance 873 910 PT 18.2 SEC (12.0-15.0) H 09/19/17 09:50 INR 1.49 (0.83-1.16) H 09/19/17 09:50 chart reviewed discussed with Dr Canas and ICU team on rounds Ct reviewed - Physical Exam Constitutional: uncomfortable Cardiovascular: no murmur, rub, or gallop, irregularly irregular Respiratory: no respiratory distress, no rales or rhonchi Gastrointestinal: distension, other (soft; diffusely TTP) Genitourinary: other (scrotal and penile ecchymosis) ICD10 Worksheet Patient Problems: Problems Problem Status Onset Epistaxis Acute Rapid atrial fibrillation Acute
[2017-09-19] MEDS ORDERED: LIDOCAINE 2% JELLY 20 ML (UROJECT) ONE (15:09)
--- NOTE | 2017-09-19 16:29 | ASMTCMCOM ---
CM Note CM Note Notes: Met with ,Ysabel and daughter, Mari for a "Family Meeting". 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 They report that he has fallen recently a few times which has resulted in hip fx's and a compression fx/concussion. Patient confuses easily w/o family present and they feel that he may have some dementia. At this time needs a sitter so he won't pull out leads or get out of bed w/o assist. The discharge plan is for patient to go to the [facility] [place] for rehab. Date Signed: 09/19/2017 04:29 PM Electronically Signed By:Lorena Elena LCSW
[2017-09-19] MEDS: NON-FORMULARY NEW DRUG (Tadalafil [Cialis] 5 MG) PO SCH (20:11)
[2017-09-19] MEDS: ACETAMINOPHEN 325 MG TAB PO PRN (20:12)
[2017-09-19] MEDS: NS 1,000 ML IV SCH (22:05)
[2017-09-20] MEDS: HYDROmorphONE/DILAUDID 2 MG/ML INJ IVP PRN (04:37)
[2017-09-20] MEDS: ONDANSETRON 4 MG/2 ML VIAL IVP PRN ×2 (04:38→11:03)
[2017-09-20 04:40] LABS: PLATELET COUNT 143 10^3/uL (150-400)
[2017-09-20] MEDS: PRESERVISION AREDS2 FORMULA EYE VIT 1 EACH PO SCH ×2 (08:31→20:58)
[2017-09-20] MEDS: GABAPENTIN 100 MG CAP PO SCH ×3 (08:31→20:59)
[2017-09-20] MEDS: ESCITALOPRAM OXALATE 10 MG TAB PO SCH (08:31)
[2017-09-20] MEDS: METOPROLOL TARTRATE 25 MG TAB PO SCH ×2 (08:31→20:58)
[2017-09-20] MEDS: ATORVASTATIN CALCIUM 20 MG TAB PO SCH (08:32)
[2017-09-20] MEDS: DOCUSATE SODIUM 100 MG CAP PO SCH ×2 (08:32→20:59)
[2017-09-20] MEDS ORDERED: HYDROmorphone HCL/NS 0.5 MG/ML SYR IVP PRN (09:30)
[2017-09-20] MEDS: ACETAMINOPHEN 325 MG TAB PO PRN (11:03)
--- NOTE | 2017-09-20 11:55 | HOSPPROG ---
Hospitalist Progress Note Assessment/Plan: # POD#7 s/p bilat hernia repair, now with omental hematoma - follow up CT unchanged - holding eliquis, plavix # ABLA d/t hematoma s/p 3U PRBC # CAD, PCI 2017 - had an episode of CP (neg trops) - cont metop, holding plavix # a-fib, chronic - cont metop, hold eliquis # tachycardia - better with transfusion; if his HR does not improve, will transfuse another unit # acute encephalopathy - d/t above; has some underlying dementia - minimize narcotics, schedule apap # code blue 09/17 (no CPR) - likely vaso-vagal in setting on intra-abdominal hematoma # likely protein calorie malnutrition # ppx - SCDs # DNR/DNI Subjective: he has sompe delirium today which is slowly worsening Objective: Vital Signs Temp Pulse Resp BP Pulse Ox 37.1 C 118 H 13 139/69 H 96 09/20/17 07:43 09/20/17 07:43 09/20/17 07:43 09/20/17 07:43 09/20/17 07:43 Laboratory Results 09/20/17 04:25 09/20/17 04:25 09/19/17 09/20/17 09/21/17 05:59 05:59 05:59 Intake Total 1290 3238 Output Total 380 665 125 Balance 910 2573 -125 PT 18.2 SEC (12.0-15.0) H 09/19/17 09:50 INR 1.49 (0.83-1.16) H 09/19/17 09:50 - Physical Exam Constitutional: no apparent distress, appears nourished Cardiovascular: no murmur, rub, or gallop, irregularly irregular Respiratory: no respiratory distress, no rales or rhonchi Gastrointestinal: soft, non-tender abdomen, no palpable masses ICD10 Worksheet Patient Problems: Problems Problem Status Onset Epistaxis Acute Rapid atrial fibrillation Acute
[2017-09-20] MEDS: ACETAMINOPHEN 500 MG TAB PO SCH ×3 (12:39→20:59)
[2017-09-20] MEDS: oxyCODONE IR 5 MG TAB PO PRN (12:44)
--- NOTE | 2017-09-20 13:02 | SOAPPROG ---
HANDY Progress Note Assessment/Plan: Assessment: doing ok after lap bih/ ready for rehab Plan:transfer to rehab 09/16/17 18:21 09/20/17 13:00 no change in abd with large contained hematoma/ hct stable 24/ ct shows no enlargement of hematoma will continue to watch and try to avoid surgery but if pain is too great it's simple to drain chest clear, cor irreg tachycardia, abd soft but tender over palpable hematoma Objective: Vital Signs Temp Pulse Resp BP Pulse Ox 37.1 C 118 H 13 139/69 H 96 09/20/17 07:43 09/20/17 07:43 09/20/17 07:43 09/20/17 07:43 09/20/17 07:43 Laboratory Results 09/20/17 04:25 09/20/17 04:25 09/19/17 09/20/17 09/21/17 05:59 05:59 05:59 Intake Total 1290 3238 Output Total 380 665 125 Balance 910 2573 -125 PT 18.2 SEC (12.0-15.0) H 09/19/17 09:50 INR 1.49 (0.83-1.16) H 09/19/17 09:50 ICD10 Worksheet Patient Problems: Problems Problem Status Onset Epistaxis Acute Rapid atrial fibrillation Acute
--- NOTE | 2017-09-20 13:34 | PDINTPN ---
Co Chairman Progress Note Assessment/Plan: Assessment/plan: 81 M with BPH, afib, CAD, HTN admitted 09/14 for laparoscopic bilateral hernia repair with mesh, complicated by hypotension on HD#3, associated with mental status changes and erroneously called as a code blue (rapid spontaneous recovery and no CPR). Neurology evaluation subsequently said no TIA/CVA and abdominal CT revealed large anterior omental hematoma on 09/17. He required one unit RBC on 09/18 with an H/H of 8.8/26.5, followed by an additional unit 09/19 for 7.8/23.4. He also developed slight RVR (to 140 bpm) and started metoprolol, but his BP has remained stable as has his O2 needs. He is quite concerned about GILMORE, but a scan 09/17 showed only 100 cc (repeat pending) and he currently does not have a galvez. * Abdominal hematoma- apperas stable and less tender today. Hct stable * BPH/GILMORE- good uop * Atrial fibrillation- currently rate controlled on metoprolol. Holding anticoag given bleeding issues. 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 * Dementia? will need outpatient workup once stabilized. Appreciate neuro care. * Anemia- as above with frequent CBC * * stable today 09/20/17 13:32 Subjective: stable overnight, no further transfusions. Family concerned about no sitter (no events) Objective: Vital Signs Temp Pulse Resp BP Pulse Ox 37.1 C 98 12 109/61 98 09/20/17 07:43 09/20/17 12:00 09/20/17 12:00 09/20/17 12:00 09/20/17 12:00 Laboratory Results 09/20/17 04:25 09/20/17 04:25 09/19/17 09/20/17 09/21/17 05:59 05:59 05:59 Intake Total 1290 3238 Output Total 380 665 125 Balance 910 2573 -125 PT 18.2 SEC (12.0-15.0) H 09/19/17 09:50 INR 1.49 (0.83-1.16) H 09/19/17 09:50 Physical Exam - Physical Exam General Appearance: alert, no apparent distress EENT: PERRL/EOMI Neck: supple Respiratory: lungs clear, normal breath sounds, No respiratory distress, No accessory muscle use Cardiac/Chest: regular rate, rhythm, No edema Abdomen: normal bowel sounds, guarding, mass, other (ecchymosis) Male Genitalia: other Skin: normal color, warm/dry, No cyanosis Lymphatic: no adenopathy Extremities: No pedal edema Neuro/Psych: alert, normal mood/affect, cognition abnormalities ICD10 Worksheet Patient Problems: Problems Problem Status Onset Epistaxis Acute Rapid atrial fibrillation Acute
--- NOTE | 2017-09-20 14:18 | ASMTCMCOM ---
CM Note CM Note Notes: Spoke to daughter who feels that patient is very agitated today and they are uncertain as to what they should do as far as staying with him or not. This CM contacted the Ctr at [facility] which is where family wanted patient to go for rehab to ask about their policy on restraints. They can not restrain the patient or provide a sitter. Patient will have to be sitter free 24hrs b/4 they will admit him. In talking with daughter, she reports that she and her mother are thinking that patient may need to go to a SNF w/memory care. We also talked about whether or not Comfort Measures might be best? Family might benefit from a Palliative consult. This CM gave the daughter the No [facility] Res Book for placement options. Date Signed: 09/20/2017 02:17 PM Electronically Signed By:Lorena Elena LCSW
[2017-09-20] MEDS: NON-FORMULARY NEW DRUG (Tadalafil [Cialis] 5 MG) PO SCH (22:39)
[2017-09-21] MEDS: oxyCODONE IR 5 MG TAB PO PRN ×2 (02:56→10:38)
[2017-09-21] MEDS: ONDANSETRON 4 MG/2 ML VIAL IVP PRN (03:03)
[2017-09-21 05:38] LABS: PLATELET COUNT 185 10^3/uL (150-400)
[2017-09-21] MEDS: ACETAMINOPHEN 500 MG TAB PO SCH ×3 (09:33→21:01)
[2017-09-21] MEDS: PRESERVISION AREDS2 FORMULA EYE VIT 1 EACH PO SCH ×2 (09:33→21:01)
[2017-09-21] MEDS: ATORVASTATIN CALCIUM 20 MG TAB PO SCH (09:33)
[2017-09-21] MEDS: ESCITALOPRAM OXALATE 10 MG TAB PO SCH (09:34)
[2017-09-21] MEDS: DOCUSATE SODIUM 100 MG CAP PO SCH ×2 (09:34→21:01)
[2017-09-21] MEDS: METOPROLOL TARTRATE 25 MG TAB PO SCH ×2 (09:34→21:02)
[2017-09-21] MEDS: GABAPENTIN 100 MG CAP PO SCH ×3 (09:34→21:01)
--- NOTE | 2017-09-21 10:01 | SOAPPROG ---
HANDY Progress Note Assessment/Plan: Assessment/Plan: 81 Y M s/p lap bilateral inguinal hernia repair, POD#7. Hx afib. CAD c stent. On eliquis and plavix at home. Acute blood loss anemia. +omental hematoma with extension to retroperitoneum stable on repeat abd/pel CT and H&H now improving. Plavix and Eliquis held. Will need to restart anticoagulants eventually. Likely start with Eliquis, possibly tomorrow, and observe in hospital. May not need to restart plavix-- defer to cardiology. Chest pain. Resolved. Very much appreciate cardiology and medicine input and care. Hernia repair. Wounds intact. Hernia repairs intact. Confusion. Seems improved today. Possibly some early dementia at baseline. Seen and examined with Dr. Ballard. Dispo: initially held pending cardiology and medicine clearance. Cleared but then held for PT/OT reasons and awaiting SNF placement. Now holding until hemodynamically stable. S: +more comfortable today. O: alert, nad no wob irregular rhythm abd softer but still distended, +BS, less tender inc cdi no recurrent hernias 09/21/17 09:57 Objective: Vital Signs Temp Pulse Resp BP Pulse Ox 36.6 C 101 H 22 H 147/91 H 98 09/21/17 07:56 09/21/17 09:34 09/21/17 07:56 09/21/17 09:34 09/21/17 07:56 Laboratory Results 09/21/17 05:30 09/21/17 05:30 09/20/17 09/21/17 09/22/17 05:59 05:59 05:59 Intake Total 3238 Output Total 665 825 150 Balance 2573 -825 -150 PT 18.2 SEC (12.0-15.0) H 09/19/17 09:50 INR 1.49 (0.83-1.16) H 09/19/17 09:50 ICD10 Worksheet Patient Problems: Problems Problem Status Onset Epistaxis Acute Rapid atrial fibrillation Acute
--- NOTE | 2017-09-21 11:24 | HOSPPROG ---
Hospitalist Progress Note Assessment/Plan: # POD#8 s/p bilat hernia repair, now with omental hematoma - follow up CT unchanged - holding eliquis, plavix - will d/w cards, but anticipate restarting eliquis tomorrow # ABLA d/t hematoma s/p 3U PRBC # CAD, PCI 11/2016 - had an episode of CP (neg trops) - cont metop, holding plavix # a-fib, chronic - cont metop, hold eliquis # tachycardia - improved today, still borderline tachycardic # acute encephalopathy - d/t above; has some underlying dementia; better today - minimize narcotics, schedule apap # code blue 09/17 (no CPR) - likely vaso-vagal in setting on intra-abdominal hematoma # likely protein calorie malnutrition # ppx - SCDs # DNR/DNI Subjective: more alert today; discussed with his Objective: Vital Signs Temp Pulse Resp BP Pulse Ox 36.6 C 101 H 22 H 147/91 H 98 09/21/17 07:56 09/21/17 09:34 09/21/17 07:56 09/21/17 09:34 09/21/17 07:56 Laboratory Results 09/21/17 05:30 09/21/17 05:30 09/20/17 09/21/17 09/22/17 05:59 05:59 05:59 Intake Total 3238 Output Total 665 825 150 Balance 2573 -825 -150 PT 18.2 SEC (12.0-15.0) H 09/19/17 09:50 INR 1.49 (0.83-1.16) H 09/19/17 09:50 - Time Spent With Patient Time Spent with Patient: greater than 25 minutes Time Spent with Patient: Greater than 25 minutes spent on this patients care, greater than 50% of time spent counseling, educating, and coordinating care regarding the above mentioned plan. - Physical Exam Constitutional: no apparent distress, appears nourished Gastrointestinal: other (soft, mild TTP, ecchymosis) ICD10 Worksheet Patient Problems: Problems Problem Status Onset Epistaxis Acute Rapid atrial fibrillation Acute
[2017-09-21] MEDS: NON-FORMULARY NEW DRUG (Tadalafil [Cialis] 5 MG) PO SCH (21:02)
--- NOTE | 2017-09-21 22:13 | SOAPPROG ---
HANDY Progress Note Assessment/Plan: Assessment: doing ok after lap bih/ ready for rehab Plan:transfer to rehab 09/16/17 18:21 09/20/17 13:00 no change in abd with large contained hematoma/ hct stable 24/ ct shows no enlargement of hematoma will continue to watch and try to avoid surgery but if pain is too great it's simple to drain chest clear, cor irreg tachycardia, abd soft but tender over palpable hematoma 09/21/17 22:12 STABLE MORE COMFORTABLE TONIGHT/NO NEED FOR SURGICAL DRAINAGE AT Objective: Vital Signs Temp Pulse Resp BP Pulse Ox 36.7 C 98 16 145/92 H 96 09/21/17 19:28 09/21/17 19:28 09/21/17 19:28 09/21/17 19:28 09/21/17 19:28 Laboratory Results 09/21/17 05:30 09/21/17 05:30 09/20/17 09/21/17 09/22/17 05:59 05:59 05:59 Intake Total 3238 200 Output Total 665 825 400 Balance 2573 -825 -200 PT 18.2 SEC (12.0-15.0) H 09/19/17 09:50 INR 1.49 (0.83-1.16) H 09/19/17 09:50 ICD10 Worksheet Patient Problems: Problems Problem Status Onset Epistaxis Acute Rapid atrial fibrillation Acute
[2017-09-22] MEDS: ACETAMINOPHEN 500 MG TAB PO SCH ×3 (08:48→21:52)
[2017-09-22] MEDS: PRESERVISION AREDS2 FORMULA EYE VIT 1 EACH PO SCH ×2 (08:48→21:54)
[2017-09-22] MEDS: ESCITALOPRAM OXALATE 10 MG TAB PO SCH (08:49)
[2017-09-22] MEDS: METOPROLOL TARTRATE 25 MG TAB PO SCH ×2 (08:49→21:53)
[2017-09-22] MEDS: ATORVASTATIN CALCIUM 20 MG TAB PO SCH (08:53)
[2017-09-22] MEDS: GABAPENTIN 100 MG CAP PO SCH ×3 (08:53→21:54)
[2017-09-22] MEDS: DOCUSATE SODIUM 100 MG CAP PO SCH ×2 (08:53→21:54)
--- NOTE | 2017-09-22 12:23 | HOSPPROG ---
Hospitalist Progress Note Assessment/Plan: # POD#9 s/p bilat hernia repair, now with omental hematoma - follow up CT unchanged - holding eliquis, plavix - discussed with Dr Martinez - agrees with aspirin given major hemorrhage - will d/w cards and surgery, but would like to start asa today # ABLA d/t hematoma s/p 3U PRBC # CAD, PCI 11/2016 - had an episode of CP (neg trops) - cont metop, holding plavix # a-fib, chronic - cont metop, hold eliquis # tachycardia - improved today, still borderline tachycardic # acute encephalopathy, delirium - d/t above; has some underlying dementia; better today - minimize narcotics, schedule apap - zyprexa tonight - discussed with family # L3 compression fx - call placed to nsg to clarify need for brace # code blue 09/17 (no CPR) - likely vaso-vagal in setting on intra-abdominal hematoma # likely protein calorie malnutrition # ppx - SCDs # DNR/DNI Subjective: he is concerned about his incisions; family concerned about a conversation with an aid Objective: Vital Signs Temp Pulse Resp BP Pulse Ox 36.7 C 68 16 133/86 H 99 09/22/17 11:28 09/22/17 11:28 09/22/17 11:28 09/22/17 11:28 09/22/17 11:28 Laboratory Results 09/22/17 03:23 09/21/17 05:30 09/21/17 09/22/17 09/23/17 05:59 05:59 05:59 Intake Total 200 400 Output Total 825 400 Balance -825 -200 400 PT 18.2 SEC (12.0-15.0) H 09/19/17 09:50 INR 1.49 (0.83-1.16) H 09/19/17 09:50 - Time Spent With Patient Time Spent with Patient: greater than 35 minutes Time Spent with Patient: Greater than 35 minutes spent on this patients care, greater than 50% of time spent counseling, educating, and coordinating care regarding the above mentioned plan. - Physical Exam Constitutional: appears nourished, not in pain Eyes: anicteric sclera Ears, Nose, Mouth, Throat: hearing normal Cardiovascular: No edema Respiratory: no respiratory distress Gastrointestinal: No distension Genitourinary: No galvez in urethra Skin: warm Neurologic: AAOx3 Psychiatric: interacting appropriately ICD10 Worksheet Patient Problems: Problems Problem Status Onset Epistaxis Acute Rapid atrial fibrillation Acute
--- NOTE | 2017-09-22 15:37 | ASMTCMCOM ---
CM Note CM Note Notes: CM spoke w/ Vincent, RN regarding d/c POC. Pt needs to be without a sitter for 24hrs prior to discharging to SNF. Updates sent to [facility]. CM to follow. Plan: [facility] [place] Date Signed: 09/22/2017 03:36 PM Electronically Signed By:ROSS Funez
--- NOTE | 2017-09-22 15:47 | SOAPPROG ---
SOAP Progress Note Assessment/Plan: Assessment: Assessment/Plan: 81 Y M s/p lap bilateral inguinal hernia repair. Hx afib. CAD c stent. On eliquis and plavix at home. s/p acute blood loss anemia and omental hematoma S: Pain improved. Still some confusion, but seems to be at his baseline. O: Alert, NAD No WOB A-fib Abdomen: softly distended, mild tenderness, incisions cdi H&H much improved. Plan: Will need to restart eliquis. Plan to observe in hospital after reinitiation of Eliquis. Hold plavix for now. No need for surgery given improvement in blood counts. 09/22/17 15:35 Objective: Vital Signs Temp Pulse Resp BP Pulse Ox 36.7 C 68 16 133/86 H 99 09/22/17 11:28 09/22/17 11:28 09/22/17 11:28 09/22/17 11:28 09/22/17 11:28 Laboratory Results 09/22/17 03:23 09/21/17 05:30 09/21/17 09/22/17 09/23/17 05:59 05:59 05:59 Intake Total 200 400 Output Total 825 400 150 Balance -825 -200 250 PT 18.2 SEC (12.0-15.0) H 09/19/17 09:50 INR 1.49 (0.83-1.16) H 09/19/17 09:50 ICD10 Worksheet Patient Problems: Problems Problem Status Onset Epistaxis Acute Rapid atrial fibrillation Acute
[2017-09-22] MEDS: ASPIRIN EC 81 MG TAB PO SCH (16:24)
[2017-09-22] MEDS ORDERED: OLANZapine 2.5 MG TAB PO SCH (21:00)
[2017-09-22] MEDS ORDERED: OLANZapine DISINTEGR 5 MG TAB PO SCH (21:00)
--- NOTE | 2017-09-22 22:07 | GOP ---
[f rep st] OPERATIVE REPORT DATE OF OPERATION: 09/14/2017 SURGEON: Cortes Ballard MD COMPOSING ROOM MACHINIST APPRENTICE: PHOEBE Wren ANESTHESIOLOGIST: Carlos Luna MD PREOPERATIVE DIAGNOSIS: Left inguinal hernia. POSTOPERATIVE DIAGNOSIS: Bilateral inguinal hernias. PROCEDURE PERFORMED: Laparoscopic bilateral inguinal hernia repairs with mesh. FINDINGS: Patient was found bilateral direct defects. DESCRIPTION OF PROCEDURE: Patient was taken to the operating room, where he received satisfactory ge neral endotracheal anesthesia. He was placed in the supine position and prepped and draped in the ua sterile fashion. An infraumbilical incision was made and dissection was carried down to the rect us sheath, which was incised. A subfascial tunnel was developed in the preperitoneal space. It was dissected free with a wound dissector which was replaced with CO2 insufflation trocar. Two other tro cars were placed under direct vision in the lower abdominal midline. Davide ligament was exposed loki aterally. The cords were mobilized bilaterally. Peritoneum was dissected off the cord structures. There were no indirect sacs. Bilateral direct defects were dissected free. Their contents reduced. Both defects were covered with polyester Covidien mesh patches and anchored in place with AbsorbaTac k, securing it to Davide ligament, to the lacunar ligament, to the anterior abdominal wall and the la teral abdominal wall outside the internal ring. Hemostasis was assured. Trocars were removed under direct vision. Pneumoperitoneum was released. Trocar sites were closed with 0 Vicryl for the fascia , 4-0 Monocryl subcuticular stitch for the skin, and all layers infiltrated with 0.5% Marcaine. Bloo d loss was negligible. It should be noted on the left side, the patient had a rather large, partiall y incarcerated omental hernia contents that were reduced. Hemostasis had been assured. There were n o complications. He was taken to the recovery room in good condition. /[id number]/MODL
[2017-09-22] MEDS: NON-FORMULARY NEW DRUG (Tadalafil [Cialis] 5 MG) PO SCH (22:35)
[2017-09-23] MEDS: GABAPENTIN 100 MG CAP PO SCH ×3 (07:59→20:14)
[2017-09-23] MEDS: METOPROLOL TARTRATE 25 MG TAB PO SCH ×2 (07:59→20:14)
[2017-09-23] MEDS: ASPIRIN EC 81 MG TAB PO SCH (07:59)
[2017-09-23] MEDS: ACETAMINOPHEN 500 MG TAB PO SCH ×3 (07:59→20:13)
[2017-09-23] MEDS: ESCITALOPRAM OXALATE 10 MG TAB PO SCH (07:59)
[2017-09-23] MEDS: PRESERVISION AREDS2 FORMULA EYE VIT 1 EACH PO SCH ×2 (07:59→20:13)
[2017-09-23] MEDS: ATORVASTATIN CALCIUM 20 MG TAB PO SCH (08:00)
[2017-09-23] MEDS: DOCUSATE SODIUM 100 MG CAP PO SCH ×2 (08:06→20:13)
--- NOTE | 2017-09-23 08:30 | HOSPPROG ---
Hospitalist Progress Note Assessment/Plan: 81M s/p bilat hernia repair. Course c/b omental hematoma requiring holding eliquis and plavix. Have restarted aspirin yesterday. # POD#10 s/p bilat hernia repair, now with omental hematoma - follow up CT unchanged - restarted asa yesterday - recheck h/h tomorrow am # ABLA d/t hematoma s/p 3U PRBC # CAD, PCI 11/2016 - had an episode of CP (neg trops) - cont metop, asa restarted # a-fib, chronic - cont metop, asa for CVA ppx for now # tachycardia - resolved # acute encephalopathy, delirium - d/t above; has some underlying dementia; better today - minimize narcotics, schedule apap - he did not do well with zyprexa - will hold tonight # L3 compression fx - call placed to ns to clarify need for brace, awaiting callback # code blue 09/17 (no CPR) - likely vaso-vagal in setting on intra-abdominal hematoma # likely protein calorie malnutrition # ppx - SCDs # DNR/DNI # dispo - if hematoma stable tomorrow based on labs, he will be ready for discharge to SNF Subjective: easily angered by staff; found walking in room last night - he was having some visual hallucinations Objective: Vital Signs Temp Pulse Resp BP Pulse Ox 36.7 C 90 18 165/121 H 94 09/23/17 07:35 09/23/17 07:35 09/23/17 07:35 09/23/17 07:35 09/23/17 07:35 Laboratory Results 09/23/17 03:37 09/21/17 05:30 09/22/17 09/23/17 09/24/17 05:59 05:59 05:59 Intake Total 200 1450 Output Total 400 705 Balance -200 745 PT 18.2 SEC (12.0-15.0) H 09/19/17 09:50 INR 1.49 (0.83-1.16) H 09/19/17 09:50 - Physical Exam Constitutional: no apparent distress, appears nourished, other (wearing back brace) Cardiovascular: regular rate and rhythym, no murmur, rub, or gallop Respiratory: no respiratory distress, no rales or rhonchi, clear to auscultation Gastrointestinal: soft, non-tender abdomen, no palpable masses ICD10 Worksheet Patient Problems: Problems Problem Status Onset Epistaxis Acute Rapid atrial fibrillation Acute
--- NOTE | 2017-09-23 16:06 | ASMTCMCOM ---
CM Note CM Note Notes: 09/23/2017 Case Management Note Nicoletet from [facility] visited pt and case management. She can be reached at [phone]. Nicolette has a bed available for pt on Tuesday. Family is concerned about wheelchair transport, Nicolette requested stretcher transport be arranged by Case Management at d/c. Case Management d/c poc: to [facility] Case Management to follow. Date Signed: 09/23/2017 04:06 PM Electronically Signed By:Libia Farias RN
--- NOTE | 2017-09-23 17:06 | SOAPPROG ---
SOAP Progress Note Assessment/Plan: Assessment: Assessment/Plan: 81 Y M s/p lap bilateral inguinal hernia repair. Hx afib. CAD c stent. On eliquis and plavix at home. s/p acute blood loss anemia and omental hematoma S: Pain improved. Still some confusion, but seems to be at his baseline. O: Alert, NAD No WOB A-fib Abdomen: softly distended, mild tenderness, incisions cdi H&H much improved. Plan: Will need to restart eliquis. Plan to observe in hospital after reinitiation of Eliquis. Hold plavix for now. No need for surgery given improvement in blood counts. 09/22/17 15:35 09/23/17 17:05 Start asa. H&H down mildly. VSS stable. Likely home tomorrow. Objective: Vital Signs Temp Pulse Resp BP Pulse Ox 36.4 C 95 16 112/91 H 97 09/23/17 16:00 09/23/17 16:00 09/23/17 16:00 09/23/17 16:00 09/23/17 16:00 Laboratory Results 09/23/17 03:37 09/21/17 05:30 09/22/17 09/23/17 09/24/17 05:59 05:59 05:59 Intake Total 200 1450 250 Output Total 400 705 200 Balance -200 745 50 PT 18.2 SEC (12.0-15.0) H 09/19/17 09:50 INR 1.49 (0.83-1.16) H 09/19/17 09:50 ICD10 Worksheet Patient Problems: Problems Problem Status Onset Epistaxis Acute Rapid atrial fibrillation Acute
[2017-09-23] MEDS: NON-FORMULARY NEW DRUG (Tadalafil [Cialis] 5 MG) PO SCH (20:14)
[2017-09-24] MEDS: ACETAMINOPHEN 500 MG TAB PO SCH (07:07)
[2017-09-24 07:19] VITALS: O2SAT 93
[2017-09-24] MEDS: ATORVASTATIN CALCIUM 20 MG TAB PO SCH (08:57)
[2017-09-24] MEDS: DOCUSATE SODIUM 100 MG CAP PO SCH (08:57)
[2017-09-24] MEDS: METOPROLOL TARTRATE 25 MG TAB PO SCH (08:57)
[2017-09-24] MEDS: GABAPENTIN 100 MG CAP PO SCH (08:57)
[2017-09-24] MEDS: ASPIRIN EC 81 MG TAB PO SCH (08:57)
[2017-09-24] MEDS: ESCITALOPRAM OXALATE 10 MG TAB PO SCH (08:57)
[2017-09-24] MEDS: PRESERVISION AREDS2 FORMULA EYE VIT 1 EACH PO SCH (08:57)
[2017-09-24 10:55] VITALS: BP 130/96; PULSE 99; RESP 18; TEMP 98.2
--- NOTE | 2017-09-24 11:53 | PDIAF ---
- Diagnosis Diagnosis: Abd wall hematoma, bilateral inguinal hernias Code Status: Do Not Resuscitate - Medication Management Discharge Medications: Medications to Continue on Transfer Atorvastatin Calcium [Lipitor 20 mg (*)] 20 mg PO DAILY 03/28/16 [Last Taken 05/21] C/E/Zn/Cu/OM3/DHA/EPA/LUT/ZEAX [Preservision Areds 2 Softgel] 1 each PO BID [Last Taken 09/06/17] Escitalopram Oxalate [Lexapro 10 MG] 10 mg PO DAILY 03/28/16 [Last Taken ] Tadalafil [Cialis] 5 mg PO HS 03/28/16 [Last Taken 09/11/17] Acetaminophen [Tylenol ES 500 mg (*)] 1,000 mg PO Q8 09/13/17 [Last Taken 08:00] Bevacizumab [Avastin] 1 dose RTEYE .Q6WK 09/13/17 [Last Taken 09/06/17] Eyelea Injection 1 dose LEFTEYE .Q6WK 09/13/17 [Last Taken 09/06/17] Gabapentin [Neurontin 100 MG (*)] 100 mg PO TID 09/13/17 [Last Taken 09/12/17] Metoprolol Tartrate [Lopressor 25 mg (*)] 25 mg PO BID 09/13/17 [Last Taken 08:00] oxyCODONE IR [Oxycodone Ir (*)] 5 mg PO Q4 PRN 09/13/17 [Last Taken Unknown] Apixaban [Eliquis] 5 mg PO BID tab 09/16/17 [Last Taken Unknown] Clopidogrel Bisulfate [Plavix (*)] 75 mg PO DAILY tab 09/16/17 [Last Taken Unknown] Polyethylene Glycol 3350 [Miralax 17 gm (*)] 17 gm PO DAILY PRN pkt 09/16/17 [ Last Taken Unknown] Acetaminophen [Tylenol ES 500 mg (*)] 1,000 mg PO TID tab 09/24/17 [Last Taken Unknown] Aspirin EC [Aspirin EC 81 mg (*)] 81 mg PO DAILY #0 tab 09/24/17 [Last Taken Unknown] Gabapentin [Neurontin 100 MG (*)] 100 mg PO TID cap 09/24/17 [Last Taken Unknown] Metoprolol Tartrate [Lopressor 25 mg (*)] 25 mg PO BID #30 tab 09/24/17 [Last Taken Unknown] Discharge Medications: Refer to the Discharge Home Medication list for PRN reason. PICC Care - Routine: N/A - Orders Services needed: Registered Nurse, Physical Therapy, Occupational Therapy Isolation Type: None Diet Recommendation: no restrictions on diet Diet Texture: Regular Texture Diet Weigh Patient: weekly Malik: No Wound Care Instructions: may shower, but no soaking in bathtubs or pools. Gently wash over steri strips, but do not removed. They will come off on their own. Activity/Weight Bearing Restrictions: Avoid lifting over 15lbs for the first two weeks. Ok to ambulate with walker. Equipment: Oxygen - Follow Up Care Current Providers and Referrals: Chelita Abreu MD [Primary Care Provider] - Cortes Ballard MD [Medical Doctor] - follow up in 2 weeks
--- NOTE | 2017-09-24 12:26 | PDDCSUM ---
Discharge Summary Discharge Summary: DISCHARGE SUMMARY Date of Admission: September 13 Date of Discharge: September 24 DISCHARGE DIAGNOSES - bilateral incarcerated inguinal hernias - abdominal wall hematoma - multiple chronic medical comorbidities HOSPITAL COURSE The patient was admitted and taken to the operating room on the for laparoscopic bilateral hernia repair. The patient subsequently developed an abdominal wall hematoma secondary to the multiple blood thinners he was on. He was subsequently managed conservatively, the blood thinners were stopped and he was subsequently only restarted on baby aspirin after Cardiology consultation. He had multiple medical comorbidities which were managed appropriately throughout his hospital course. He was subsequently discharged to rehab [facility] inpatient on the afternoon of the in stable condition DISCHARGE MEDICATIONS Eliquis and Plavix were stopped, the only anticoagulant he was sent home on was a baby aspirin DISPOSITION inpatient rehab FOLLOW UP Follow up with Dr. Ballard in the office in 10-14 days for a general post- operative visit
--- NOTE | 2017-09-24 12:42 | PDIAF ---
- Diagnosis Diagnosis: Abd wall hematoma, bilateral inguinal hernias Code Status: Do Not Resuscitate - Medication Management Discharge Medications: Medications to Continue on Transfer Atorvastatin Calcium [Lipitor 20 mg (*)] 20 mg PO DAILY 03/28/16 [Last Taken 05/21] C/E/Zn/Cu/OM3/DHA/EPA/LUT/ZEAX [Preservision Areds 2 Softgel] 1 each PO BID [Last Taken 09/06/17] Escitalopram Oxalate [Lexapro 10 MG] 10 mg PO DAILY 03/28/16 [Last Taken ] Tadalafil [Cialis] 5 mg PO HS 03/28/16 [Last Taken 09/11/17] Acetaminophen [Tylenol ES 500 mg (*)] 1,000 mg PO Q8 09/13/17 [Last Taken 08:00] Bevacizumab [Avastin] 1 dose RTEYE .Q6WK 09/13/17 [Last Taken 09/06/17] Eyelea Injection 1 dose LEFTEYE .Q6WK 09/13/17 [Last Taken 09/06/17] Gabapentin [Neurontin 100 MG (*)] 100 mg PO TID 09/13/17 [Last Taken 09/12/17] Metoprolol Tartrate [Lopressor 25 mg (*)] 25 mg PO BID 09/13/17 [Last Taken 08:00] oxyCODONE IR [Oxycodone Ir (*)] 5 mg PO Q4 PRN 09/13/17 [Last Taken Unknown] Polyethylene Glycol 3350 [Miralax 17 gm (*)] 17 gm PO DAILY PRN pkt 09/16/17 [ Last Taken Unknown] Acetaminophen [Tylenol ES 500 mg (*)] 1,000 mg PO TID tab 09/24/17 [Last Taken Unknown] Aspirin EC [Aspirin EC 81 mg (*)] 81 mg PO DAILY #0 tab 09/24/17 [Last Taken Unknown] Gabapentin [Neurontin 100 MG (*)] 100 mg PO TID cap 09/24/17 [Last Taken Unknown] Metoprolol Tartrate [Lopressor 25 mg (*)] 25 mg PO BID #30 tab 09/24/17 [Last Taken Unknown] Discharge Medications: Refer to the Discharge Home Medication list for PRN reason. PICC Care - Routine: N/A - Orders Services needed: Registered Nurse, Physical Therapy, Occupational Therapy Isolation Type: None Diet Recommendation: no restrictions on diet Diet Texture: Regular Texture Diet Weigh Patient: weekly Malik: No Wound Care Instructions: may shower, but no soaking in bathtubs or pools. Gently wash over steri strips, but do not removed. They will come off on their own. Activity/Weight Bearing Restrictions: Avoid lifting over 15lbs for the first two weeks. Ok to ambulate with walker. Equipment: Oxygen - Follow Up Care Current Providers and Referrals: Chelita Abreu MD [Primary Care Provider] - Cortes Ballard MD [Medical Doctor] - follow up in 2 weeks
--- NOTE | 2017-09-24 13:38 | ASMTLACE ---
LACE Length of stay for Answers: 7-13 days current admission Comorbidities - select Answers: Cerebrovascular disease all that apply (CVA, TIA, aneurysms, vasc ular dementia) Opioid dependence / Chronic pain Peripheral vascular disease Other Notes: HTN, # of Emergency department Answers: 0 visits in the last 6 months Score: 12 Date Signed: 09/24/2017 01:37 PM Electronically Signed By:Libia Farias RN
--- NOTE | 2017-09-24 15:11 | ASDISCHSUM ---
Discharge Information Plan Status:SNF Medically Cleared to Leave:09/24/2017 Discharge Date:09/24/2017 02:30 PM D/C Disposition:Intermediate Facility ADT D/C Disposition:Intermediate Facility Projected Discharge Date:09/16/2017 11:00 AM Transportation at D/C: Discharge Delay Reason: Follow-Up Date:09/16/2017 11:00 AM Discharge Slot: Final Diagnosis:Hernia repair, Anticoagulation, Hematoma Placement Information Referral Type:*Halfway/SNF Referral ID:[facility]-[id number] Provider Name:[facility] Address 1:[address] Address 2: City:[place] Selection Factors: State:[place] Patient Contact Information Contact Name:ESTEE Relationship: Address:[address] City:[place] Alternate Phone: State/Zip Code:[place] [address] Email: Financial Information Financial Class:Medicare Primary Plan Desc:MEDICARE INPATIENT Primary Plan Number:[id number] Secondary Plan Desc:GREG Secondary Plan Number:[id number] Assessment Information LACE LACE Length of stay for Answers: 7-13 days current admission Comorbidities - select Answers: Cerebrovascular disease all that apply (CVA, TIA, aneurysms, vasc ular dementia) Opioid dependence / Chronic pain Peripheral vascular disease Other Notes: HTN, # of Emergency department Answers: 0 visits in the last 6 months Score: 12 Date Signed: 09/24/2017 01:37 PM Electronically Signed By:Libia Farias RN [facility] CM Progress Note CM Note CM Note Notes: 09/14/2017 Case Management Note Pt admitted for left inguinal hernia repair. Met w/pt and after speaking with PT. PT recommending SNF. Pt has prior stay at [facility]. At pt request faxed referral via all [facility] [facility] to [facility]. Case Management d/c poc: [facility] pending acceptance. Case Management to follow. Date Signed: 09/14/2017 09:48 AM Electronically Signed By:Libia Farias RN [facility] VIRGILIO Progress Note CM Note CM Note Notes: Pts case discussed in morning rounds. CM met w/ pt and for dispo planning. wanted to make sure Dr. Mendoza was notified that the plan is for SNF. also reports that pt has an appointment next wek with [facility] for an xray. wanted to know if pt could have xray while in the hospital. CM spoke w/ Dr. Mendoza's PA, Mary. Mary reports that it is OK for pt to go to SNF and for pt to have xray at the hospital. CM communicated this information to pt and . Updates sent to [facility]. Anticipate d/c for Tuesday. CM to follow. Plan: [facility] Date Signed: 09/15/2017 12:53 PM Electronically Signed By:ROSS Funez [facility] [place] Progress Note CM Note CM Note Notes: Chart reviewed. Patient to go to [facility] tomorrow. They center will provide transport. is aware. CM to follow. Date Signed: 09/16/2017 04:24 PM Electronically Signed By:Nataliia Talbot RN [facility] [place] Progress Note CM Note CM Note Notes: Met with ,Ysabel and daughter, Mari for a "Family Meeting". 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 They report that he has fallen recently a few times which has resulted in hip fx's and a compression fx/concussion. Patient confuses easily w/o family present and they feel that he may have some dementia. At this time needs a sitter so he won't pull out leads or get out of bed w/o assist. The discharge plan is for patient to go to the [facility] for rehab. Date Signed: 09/19/2017 04:29 PM Electronically Signed By:Lorena Elena LCSW [facility] [place] Progress Note CM Note VIRGILIO Note Notes: Spoke to daughter who feels that patient is very agitated today and they are uncertain as to what they should do as far as staying with him or not. This CM contacted [facility] which [facility] where family wanted patient to go for rehab to ask about their policy on restraints. They can not restrain the patient or provide a sitter. Patient will have to be sitter free 24hrs b/4 they will admit him. In talking with daughter, she reports that she and her mother are thinking that patient may need to go to a SNF w/memory care. We also talked about whether or not Comfort Measures might be best? Family might benefit from a Palliative consult. This CM gave the daughter the [facility] for placement options. Date Signed: 09/20/2017 02:17 PM Electronically Signed By:Lorena Elena LCSW [facility] Progress Note CM Note CM Note Notes: CM spoke w/ JENNY Kaur regarding d/c POC. Pt needs to be without a sitter for 24hrs prior to discharging to SNF. Updates sent to [facility]. CM to follow. Plan: [facility] Date Signed: 09/22/2017 03:36 PM Electronically Signed By:ROSS Funez [facility] Progress Note CM Note CM Note Notes: 09/23/2017 Case Management Note Nicolette from [facility] visited pt and case management. She can be reached at [phone]. Nicolette has a bed available for pt on Tuesday. Family is concerned about wheelchair transport, Nicolette requested stretcher transport be arranged by Case Management at d/c. Case Management d/c poc: to [facility] Case Management to follow. Date Signed: 09/23/2017 04:06 PM Electronically Signed By:Libia Farias RN Case Management Discharge Plan Note Case Management Discharge Discharge Order Complete? Answers: Yes Patient to Obtain Answers: Other Notes: [facility] Medications Transportation Arranged Answers: [facility] Stretcher Transport will Pick (Date 09/24/2017 02:30 PM & Time) Case Management Transport Answers: Yes Form Complete Faxed Final Orders Answers: Yes Agency/Facility Transfer Answers: Yes Report Printed & Faxed to Receiving Agency Discharge Comments Notes: 09/24/2017 Case Management Note Completed PCS form. Faxed final orders to [facility]. Pt unable to tolerate sitting for extended periods of time and requires stretcher transport d/t hematoma over incision site. RN called report. Date Signed: 09/24/2017 01:43 PM Electronically Signed By:Libia Farias RN Intervention Information Intervention Type:*IRAIDA-Signed Date of Service:09/14/2017 10:45 AM Patient Type:Observation Staff Member:Shelbie Stoll Hours: Discipline: Severity: Comment:
--- NOTE | 2017-09-24 16:20 | GPROG ---
[f rep st] PROGRESS NOTE DATE OF SERVICE: 09/24/2017 SUBJECTIVE: Followup on acute blood loss anemia. No acute events overnight. Patient actually states that he feels quite good today. He is very happy with the nursing care he received here at the hospital. We did discuss the tentative plan was for a transfer for ongoing rehab today. He did seem to acknowledge the fact that he was having some visua l hallucinations during the hospitalization. I discussed with him and his (who is present at e bedside) that this likely will get better as he gets out of the hospital and returns back to his no rmal routine. He denies any significant abdominal complaints. OBJECTIVE: VITAL SIGNS reviewed and stable. GENERAL: Patient resting comfortably in bed. He is aw sushila, alert, conversant, and seems oriented without any confusion. HEAR: Irregular. No significant murmur appreciated. LUNGS: Clear on auscultation with normal respiratory effort. ABDOMEN: Soft, n ontender, nondistended. There is some firmness, however, around the umbilical area with mild associa raquel ecchymoses of the skin. : No Malik catheter in place. EXTREMITIES: No significant pitting edema. MUSCULOSKELETAL: No calf pain with palpation. LABORATORY DATA: White blood cell count 6, hemoglobin 10.1, platelets 185. Sodium is 141, potassium 4.5, chloride 105, bicarb 29, BUN 24, creatinine 0.8, glucose of 90. ASSESSMENT AND PLAN: 1. Acute blood loss anemia: This appears to have stabilized and no suggestion of ongoing bleeding. I think patient appears stable for transfer from the hospital if okay from a surgical standpoint. 2. Hematoma: Patient did receive 3 units of packed red blood cells for anemia related to the hemato ma. This appears to have stabilized, and pain does not appear to be a significant concern. 3. Status post hernia repair: Patient is postoperative day #11 from bilateral hernia repair. 4. Encephalopathy: This seems much better today. Although I do not have any baseline comparison fo r him, his does not seem disturbed at this time. He does have underlying dementia, not currentl y on medical therapy. He reported he did not do well on Zyprexa, so this was held. I anticipate thi s will gradually improve as he gets back to his normal routine. 5. L3 compression fracture: Patient has a brace currently prescribed. 6. Coronary artery disease: Patient had history of a percutaneous intervention in November 2016 with hem atoma. His Eliquis and Plavix were held. He is on aspirin at this point in time, I would recommend continuing the aspirin at this point time and plan on short-term follow up with Cardiology for reasse ssment of resuming Plavix and/or Eliquis. 7. Atrial fibrillation: Patient is currently on metoprolol and aspirin. No anticoagulation at this point in time in light of the hematoma. 8. Deep venous thrombosis prophylaxis: Patient was also on sequential compression devices during is hospitalization. DISPOSITION: The patient is do not attempt resuscitation code status. /[id number]/MODL
--- NOTE | 2017-09-28 11:47 | PQFORM ---
PHYSICIAN QUERY FORM Needs Your Response This query form is being sent to you to assure this patient record is coded properly. 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 Owens, In reviewing this patient medical record it is noted that the patient had the diagnosis of 'acute respiratory failure w/ hypoxia.' Noted in the Hospitalist Progress notes dated 09/15-09/19 patient was noted to have the diagnosis of 'acute hypoxic respiratory failure.' After study, should the diagnosis of 'acute respiratory failure w/ hypoxia.' be included in the Discharge summary? __x___ Yes No Unable to determine Other more appropriate diagnosis Thank you HILDA Toscano HIM/Coding Dept. [phone] INSTRUCTIONS FOR RESPONSE: Answer question by clicking on the "Edit Document" button. Move cursor to area below the stars. When complete, hit "Save." Click on the "Sign" button, then click "Sign" again. Type in your PIN and hit "Enter." MTDD
== END 2017-09-24 14:30 | DRG 350 ==
LOC: FSGY 09:48 → UNDOADMOB 13:55 → F3N 13:55 → F3E 13:55 → F2W 19:44 → OBSVTOIN 09-14 16:31 → F2N 09-17 10:08 → F2W 09-21 16:15
PROVIDERS: ADMIT Surgery; ATTEND Surgery
PROC: 0YUA4JZ Supplement Bilateral Inguinal Region with Synthetic Substitute, Percutaneous Endoscopic Approach (ICD-10-PCS; principal; 2017-09-14)
PROC: 30233N1 Transfusion of Nonautologous Red Blood Cells into Peripheral Vein, Percutaneous Approach (ICD-10-PCS; 2017-09-18)
DX: K40.20 Bilateral inguinal hernia, without obstruction or gangrene, not specified as recurrent (principal); J96.01 Acute respiratory failure with hypoxia; L76.32 Postprocedural hematoma of skin and subcutaneous tissue following other procedure; I25.10 Atherosclerotic heart disease of native coronary artery without angina pectoris; I11.0 Hypertensive heart disease with heart failure; I50.9 Heart failure, unspecified; I48.91 Unspecified atrial fibrillation; N40.0 Benign prostatic hyperplasia without lower urinary tract symptoms; Z87.891 Personal history of nicotine dependence; Z95.5 Presence of coronary angioplasty implant and graft; Z66 Do not resuscitate
CPT/HCPCS: 82947-QW; 92507-GN; 92523-GN; 97110-GP; 97116-GP; 97162-GP; 97167-GO; 97530-GO; 97530-GP; 97535-GO; C1727; C1781; G0515-GO; G8978-GP-CJ; G8979-GP-CI; G8987-GO-CL; G8988-GO-CJ; G9168-GN-CL; G9169-GN-CK; G9170-GN-CL; J0690; J1170; J1940; J2001; J2405; J2704; J3010; P9016; P9021; Q9967

== ENCOUNTER → 2017-10-20 | Outpatient (CLI) | payer OTHER | LOC: FIMAGING 11:10 | PROVIDERS: ATTEND Neurological Surgery | DX: Z09 Encounter for follow-up examination after completed treatment for conditions other than malignant neoplasm (principal); S32.030A Wedge compression fracture of third lumbar vertebra, initial encounter for closed fracture; S22.080A Wedge compression fracture of T11-T12 vertebra, initial encounter for closed fracture ==

== ENCOUNTER 2017-11-08 08:07 | Inpatient (IN) | payer OTHER ==
--- NOTE | 2017-11-04 15:34 | GHP ---
[f rep st] HISTORY AND PHYSICAL CURRENT COMPLAINT: Right leg and hip pain. HISTORY OF PRESENT ILLNESS: The patient is an 81-year-old male, who had previously undergone a right trochanteric femoral nail who has had pain surrounding the hardware since that time. It is causing enough pain that he would like the hardware removed. ALLERGIES: He has no drug allergies. CURRENT MEDICATIONS: Include atorvastatin, Avastin, citalopram, gabapentin, metoprolol. PAST MEDICAL HISTORY: Prior medical problems include coronary artery disease, heart disease, high bl ood pressure. PAST SURGICAL HISTORY: Includes left cheek bone, left shoulder, appendectomy, sinuses, right knee, l eft leg varicose veins, lumbar spine, left leg, left sinus, bilateral eyes and right femur. SOCIAL HISTORY: He is a former smoker. He consumes no alcohol. PHYSICAL EXAMINATION: HEENT: The pupils equal, round, and reactive to light. CHEST: Clear to ausc ultation. HEART: Regular rate and rhythm and rhythm. ABDOMEN: Soft and nontender. EXTREMITIES: Vanna newton has no pain to passive range of motion through the left hip but he does have pain at the insertion site of the TFN as well as the 2 screw sites along the lateral portion of his femur. X-ray exam reveals well placed hardware with no evidence of lysis, loosening or fracture and he appea rs to have well healed bone to the area of his prior to fracture site. ASSESSMENT AND PLAN: Patient is status post right trochanteric fixation nail with painful hardware. Plan is to take him to the operating room to undergo hardware removal. /[id number]/MODL
[2017-11-08] MEDS ORDERED: LR 1,000 ML IV ONE (08:30)
[2017-11-08] MEDS ORDERED: LIDOCAINE 1% 2 ML INJ ID PRN (08:30)
--- NOTE | 2017-11-08 08:37 | PDANEPAE ---
ANE Past Medical History - Cardiovascular History Hx Hypertension: Yes Hx Arrhythmias: Yes Hx Chest Pain: No Hx Coronary Artery / Peripheral Vascular Disease: Yes Hx CHF / Valvular Disease: No Hx Palpitations: No Cardiovascular History Comment: Sick sinus syndrome, A Fib, Heart cath w/2 stents November. - Pulmonary History Hx COPD: No Hx Asthma/Reactive Airway Disease: No Hx Recent Upper Respiratory Infection: No Hx Oxygen in Use at Home: No Hx Sleep Apnea: No Sleep Apnea Screening Result - Last Documented: Positive Pulmonary History Comment: Dx w/Leander-Barry appro 2009 - Neurologic History Hx Cerebrovascular Accident: No Hx Seizures: No Hx Dementia: No Neurologic History Comment: TIA . Decreased strength/stamina. Short term memory impairment-past yr. - Endocrine History Hx Diabetes: No Hypothyroid: No Hyperthyroid: No Obesity: no - Renal History Hx Renal Disorders: No Renal History Comment: BPH- responded to Cool Thermotx and Cialis. - Liver History Hx Hepatic Disorders: No - Neurological & Psychiatric Hx Hx Neurological and Psychiatric Disorders: Yes Neurological / Psychiatric History Comment: L3 compression fx, concussion sustained w/fall 08-08-17. - Cancer History Hx Cancer: No - Congenital Disorder History Hx Congenital Disorders: No - GI History GERD: no Hx Gastrointestinal Disorders: No - Other Health History Other Health History: macular degeneration-bilat;. seasonal allergies - Chronic Pain History Chronic Pain: Yes (back/L groin) - Surgical History Prior Surgeries: Rodding R hip . shoulder sx. sinus sx. varicose vein sx. laminectomy. bilat knee scopes. hernia with severe hemorraging ANE Review of Systems Review of Systems: - Exercise capacity METS (RN): 3 METS ANE Patient History - Allergies Allergies/Adverse Reactions: hydrocodone [From Vicodin] Allergy (Verified 11/02/17 12:14) Vomiting sulfacetamide Allergy (Verified 11/02/17 12:14) - Home Medications Home Medications: Atorvastatin Calcium [Lipitor 20 mg (*)] 20 mg PO DAILY 03/28/16 [Last Taken 02/18 06:30] C/E/Zn/Cu/OM3/DHA/EPA/LUT/ZEAX [Preservision Areds 2 Softgel] 1 each PO BID [Last Taken 10/27/17] Escitalopram Oxalate [Lexapro 10 MG] 10 mg PO DAILY 03/28/16 [Last Taken 06:30] Tadalafil [Cialis] 5 mg PO HS 03/28/16 [Last Taken 11/05/17] Bevacizumab [Avastin] 1 dose RTEYE .Q6WK 09/13/17 [Last Taken 09/06/17] Eyelea Injection 1 dose LEFTEYE .Q6WK 09/13/17 [Last Taken 10/27/17] oxyCODONE IR [Oxycodone Ir (*)] 5 mg PO Q4 PRN 09/13/17 [Last Taken 1 Week Ago ~ 11/01/17] - Anes Hx Anes Hx: no prior problems - Smoking Hx Smoking Status: Former smoker - Alcohol Use Alcohol Use: Rarely - Family Anes Hx Family Anes Hx: neg - N/A ANE Labs/Vital Signs - Vital Signs Height: 190.5 cm Weight: 84.822 kg ANE Physical Exam - Airway Neck exam: decreased ROM Mallampati Score: Class 3 Mouth exam: normal dental/mouth exam - Pulmonary Pulmonary: no respiratory distress, no rales or rhonchi, clear to auscultation, reduced air movement - Cardiovascular Cardiovascular: no murmur, rub, or gallop - ASA Status ASA Status: III (Regular rate, irregular rhythym) ANE Anesthesia Plan Anesthesia Plan: GA w LMA Total IV Anesthesia: No
[2017-11-08] MEDS ORDERED: BUPIVACAINE 0.5% 30 ML SDV ONE (09:13)
[2017-11-08] MEDS ORDERED: BACITRACIN 50,000 UNITS/10 ML SYR IRR ONE (09:14)
[2017-11-08] MEDS ORDERED: EPINEPHrine 1 MG/ML INJ ONE (09:14)
[2017-11-08] MEDS ORDERED: POLYMYXIN B SULFATE 500,000 UNIT/10 ML SYR IRR ONE (09:14)
[2017-11-08] MEDS ORDERED: ACETAMINOPHEN 500 MG TAB PO ONE (09:28)
[2017-11-08] MEDS ORDERED: ceFAZolin 2 GM/SWFI 2 GM/20 ML SYR IVP ONE (09:28)
[2017-11-08] MEDS ORDERED: fentaNYL 100 MCG/2 ML INJ ONE ×2 (10:14→10:51)
[2017-11-08] MEDS ORDERED: PROPOFOL 200 MG/20 ML VIAL ONE (10:14)
[2017-11-08] MEDS ORDERED: LIDOCAINE 2% 5 ML SDV ONE (10:15)
[2017-11-08] MEDS ORDERED: PHENYLEPHRINE HCL 100 MCG/ML SYR ONE (10:23)
[2017-11-08] MEDS ORDERED: HYDROGEN PEROXIDE 473 ML BOTTLE TP ONE (10:50)
[2017-11-08] MEDS ORDERED: LR 500 ML IV PRN (10:58)
[2017-11-08] MEDS ORDERED: PHENYLEPHRINE HCL 100 MCG/ML SYR IVP PRN (10:58)
[2017-11-08] MEDS ORDERED: ONDANSETRON 4 MG/2 ML VIAL IVP PRN ×2 (10:58→12:12)
[2017-11-08] MEDS ORDERED: fentaNYL 100 MCG/2 ML INJ IVP PRN (10:58)
[2017-11-08] MEDS ORDERED: HYDROCODONE/APAP 5/325 TAB PO PRN (10:58)
[2017-11-08] MEDS ORDERED: NALOXONE HCL 0.4 MG/ML INJ IVP PRN (10:58)
[2017-11-08] MEDS ORDERED: epHEDrine SULFATE 10 MG/ML SYR IVP PRN (10:58)
[2017-11-08] MEDS ORDERED: ACETAMINOPHEN 500 MG TAB PO PRN (10:58)
[2017-11-08] MEDS ORDERED: oxyCODONE IR 5 MG TAB PO PRN (10:58)
[2017-11-08] MEDS ORDERED: ROCURONIUM 50 MG/5 ML VIAL ONE (10:59)
[2017-11-08] MEDS ORDERED: KETOROLAC 30 MG/1 ML SDV ONE (11:41)
--- NOTE | 2017-11-08 12:12 | POSTOPPROG ---
Post Op Note Date of Operation: 11/08/17 Surgeon: Rupal Hensley Office Machine Technician: coltrain Anesthesia: LMA Pre-op Diagnosis: s/p r tfn Procedure: r hip/femur clementine with fluoro Inf/Abcess present in the surg proc area at time of surgery?: No Depth: Deep Incisional (Fascial) EBL: 100-500
--- NOTE | 2017-11-08 12:50 | GOP ---
[f rep st] OPERATIVE REPORT DATE OF OPERATION: SURGEON: Rupal Hensley MD PACKAGING DESIGN ENGINEER: Loi Dawkins, CSFA, LSAC, whose presence was medically necessary. ANESTHESIA: Via LMA. PREOPERATIVE DIAGNOSIS: Status post right hip trochanteric femoral nail. POSTOPERATIVE DIAGNOSIS: Status post right hip trochanteric femoral nail. PROCEDURE PERFORMED: Removal of hardware from right femur and hip with use of fluoroscopy. FINDINGS: INDICATIONS: This is an 81-year-old male, who had a right hip fracture just over a year ago that was fixed with a TFN. The bone healed uneventfully, but the patient describes pain associated with hard awad since then. He would like the hardware removed. DESCRIPTION OF PROCEDURE: Patient brought to the operating room after the right side had been identi fied as correct side by the patient, nurse, and physician. Once in the operating room, he was placed under general anesthesia using LMA, then placed in the lateral decubitus position with the right hip and flank well exposed and an axillary roll placed beneath the right shoulder. Once in place, a tye n bag was placed around him to hold him in the lateral decubitus position. The right hip and flank w ere then sterilely prepped and draped in the usual fashion using YULISSA/solution. Once prepped and drap ed, using the prior incision over his hip, incision made through the skin and subcutaneous layers, wi th the excision extended both proximally and distally in order to gain further access onto the greate r trochanter. The fascia overlying the TFL was incised in order to gain access into the greater troc hanter. Dissection was carried down onto the greater trochanter. Fluoroscopy was used to guide the entry site for the nail. Once the area was identified, the bone had to be removed since it was sunk approximately 1 inch below this level of the bone. Once found, the end of the vicki had to be debrided of all bone. A flexible screwdriver was then passed into the vicki in order to loosen the bolt holdin g the helical screw in place. Once this was loosened up, a second incision was made and extended fur ther proximally over the area of the helical screw insertion site. Sharp dissection was carried down through the skin and subcutaneous layers and blunt dissection through the TFL onto the actual screw itself. An host/hostess blade was reverse threaded into the nail, and a slap hammer was used to remove t he helical screw. Once completed, attention was turned to the distal portion of the femur where an incision was made di rectly over the area of the lateral femoral condyle associated with the distal screw site insertion. Sharp dissection was carried down through the skin and subcutaneous layers, identifying the screw be low. The screw was able to be removed. Once the screw was removed, attention was turned back to the vicki with the distraction device able to be screwed into the proximal portion of the nail and a slap hammer used to remove the nail in its entirety. Once completed, all 3 wounds were thoroughly irrigated with an antibiotic solution and closed in laye rs to include 0 Vicryl suture for the fascial and tensor fascial jenni layers, 0 Vicryl 0 and 2-0 Vicr yl sutures for the subcutaneous layers, and a 3-0 V-Loc suture in a running subcuticular stitch for t he skin. All 3 wounds were then dressed with Steri-Strips, Xeroform, 4 x 4's, and Tegaderm. The pat ient was completely undraped in the operating room and placed in supine position. He was awakened, e xtubated, and transferred onto recovery room and sent there in good condition. /[id number]/MODL
[2017-11-08] MEDS ORDERED: LABETALOL HCL 5 MG/ML 20 ML MDV ONE (13:32)
--- NOTE | 2017-11-08 13:33 | POSTANESTH ---
Post Anesthetic Evaluation Cardiovascular Status: Tx Hyper/Hypo-tension Respiratory Status: Normal, Stable Level of Consciousness/Mental Status: Can Participate in Eval Pain Control: Adequate, Prn Tx Ordered Nausea/Vomiting Control: Adequate, Prn Tx Ordered Complications Possibly Related to Anesthesia: None Noted
[2017-11-08] MEDS: LABETALOL HCL 5 MG/ML 20 ML MDV IVP PRN ×2 (13:36→15:32)
[2017-11-08] MEDS ORDERED: LABETALOL HCL 5 MG/ML 20 ML MDV IVP PRN (16:50)
[2017-11-08] MEDS: OXYCODONE/APAP 5/325 TAB PO PRN (20:57)
[2017-11-08] MEDS: oxyCODONE IR 5 MG TAB PO PRN (21:58)
[2017-11-09] MEDS: OXYCODONE/APAP 5/325 TAB PO PRN ×2 (08:17→13:07)
[2017-11-09] MEDS ORDERED: METOPROLOL TARTRATE 25 MG TAB PO SCH (12:45)
[2017-11-09] MEDS: GABAPENTIN 100 MG CAP PO SCH ×2 (14:58→20:57)
[2017-11-09] MEDS: oxyCODONE IR 5 MG TAB PO PRN (16:27)
--- NOTE | 2017-11-09 16:38 | ASMTCASEMG ---
Living Arrangements What is your living Answers: With Spouse arrangement? Who do you live with? Type Of Residence What kind of residence do Answers: House you live in? Discharge Plan Comments Coordination Status Comments Notes: Pt is a 81 y/o man admitted for elevated BP and hypoxia post op. CM spoke w/ pts . is concerned about pts inability to walk. Therapies have been ordered and awaiting recommendations. Pt is current w/ [facility] for PT. reports that pt was a 2 person assist to transfer today. CM to follow. Plan: TBD Date Signed: 11/09/2017 04:37 PM Electronically Signed By:ROSS Funez
--- NOTE | 2017-11-09 16:58 | PDMN ---
Medical Necessity Medical necessity: change to IP; los>2mn s/p removal of hardware R femur and hip , with decreased strength and inability to get OOB; requires max assist and acute PT to be safe for discharge; per order 11/09/17
--- NOTE | 2017-11-09 20:25 | SOAPPROG ---
SOAP Progress Note Assessment/Plan: Assessment: Plan: Subjective: states he's comfortable and wants to go home dressings intact NVI family reports he is unsteady with ambulation and wishes him to stay hospitalist has yet to see the patient Objective: Vital Signs Temp Pulse Resp BP Pulse Ox 37.0 C 95 16 114/60 91 L 11/09/17 16:30 11/09/17 16:30 11/09/17 16:30 11/09/17 16:30 11/09/17 16:30 11/08/17 11/09/17 11/10/17 05:59 05:59 05:59 Intake Total 2455 250 Output Total 340 Balance 2115 250 ICD10 Worksheet Patient Problems: Problems Problem Status Onset Epistaxis Acute Rapid atrial fibrillation Acute
[2017-11-09] MEDS: METOPROLOL TARTRATE 25 MG TAB PO SCH (20:57)
[2017-11-09] MEDS: ACETAMINOPHEN 325 MG TAB PO PRN (20:58)
[2017-11-10] MEDS: oxyCODONE IR 5 MG TAB PO PRN ×3 (01:01→17:12)
[2017-11-10] MEDS: ACETAMINOPHEN 325 MG TAB PO PRN (08:17)
[2017-11-10] MEDS: GABAPENTIN 100 MG CAP PO SCH ×3 (08:18→20:19)
--- NOTE | 2017-11-10 10:24 | SOAPPROG ---
SOAP Progress Note Assessment/Plan: Assessment: Plan: - pt is now inpatient - will stay until eligible for d/c to rehab, likely Tuesday, may be able to go home if he is stable - oxy 5 mg 1 PO for pain 11/10/17 10:22 Subjective: Pt improved mentation today. Pain continues 02/10. Difficulty w/ ambulation Objective: Vital Signs Temp Pulse Resp BP Pulse Ox 36.5 C 83 20 96/73 L 94 11/10/17 08:00 11/10/17 08:00 11/10/17 08:00 11/10/17 08:00 11/10/17 08:49 11/09/17 11/10/17 11/11/17 05:59 05:59 05:59 Intake Total 2455 650 Output Total 340 Balance 2115 650 wound cdi, no infection, ROM limited, compartments soft, NVI, lungs clear - Time Spent With Patient Time Spent With Patient: 15 - Pending Discharge Pending Discharge Within 24 Hours: No Pending Discharge Within 48 Hours: No ICD10 Worksheet Patient Problems: Problems Problem Status Onset Epistaxis Acute Rapid atrial fibrillation Acute
[2017-11-10] MEDS: METOPROLOL TARTRATE 25 MG TAB PO SCH ×2 (11:40→20:20)
[2017-11-10] MEDS: ESCITALOPRAM OXALATE 10 MG TAB PO SCH (11:40)
--- NOTE | 2017-11-10 12:20 | ASMTCMCOM ---
CM Note CM Note Notes: CM spoke w/ Dr. Chris CHAND, [facility]ill[facility] Gonzalez regarding d/c POC. CM met w/ pt and for dispo planning. They would like CM to make a referral to [facility]. Anticipate d/c for Tuesday. CM completed non triggering PASRR. Pt is current w/ [facility]. CM spoke w/ Salma at [facility] and provided her updates. CM to follow. Plan: [facility] Date Signed: 11/10/2017 12:20 PM Electronically Signed By:ROSS Funez
[2017-11-10] MEDS: IBUPROFEN 600 MG TAB PO PRN (17:11)
[2017-11-11] MEDS: IBUPROFEN 600 MG TAB PO PRN (00:04)
[2017-11-11] MEDS: oxyCODONE IR 5 MG TAB PO PRN (00:04)
[2017-11-11] MEDS: ESCITALOPRAM OXALATE 10 MG TAB PO SCH (08:13)
[2017-11-11] MEDS: METOPROLOL TARTRATE 25 MG TAB PO SCH ×2 (08:13→21:05)
[2017-11-11] MEDS: GABAPENTIN 100 MG CAP PO SCH ×3 (08:13→21:05)
--- NOTE | 2017-11-11 09:15 | SOAPPROG ---
SOAP Progress Note Assessment/Plan: Assessment: Plan: - pt will stay tonight and d/c to rehab tomorrow morning - he is wbat 11/10/17 10:22 11/11/17 09:14 Subjective: Pt reports improved pain, today 0/10, improved mentation Objective: Vital Signs Temp Pulse Resp BP Pulse Ox 36.8 C 101 H 18 113/74 91 L 11/11/17 07:11 11/11/17 07:11 11/11/17 07:11 11/11/17 07:11 11/11/17 08:13 11/10/17 11/11/17 11/12/17 05:59 05:59 05:59 Intake Total 650 650 Output Total 100 200 Balance 650 550 -200 wound cdi, pt pulled off dressing but wound intact, compartments soft, nvi distally - Time Spent With Patient Time Spent With Patient: 20 - Pending Discharge Pending Discharge Within 24 Hours: No Pending Discharge Within 48 Hours: Yes Pending Discharge Date: 11/13/17 Pending Discharge Time: 11:00 ICD10 Worksheet Patient Problems: Problems Problem Status Onset Epistaxis Acute Rapid atrial fibrillation Acute
--- NOTE | 2017-11-11 09:58 | ASMTCMCOM ---
CM Note CM Note Notes: Pt has been accepted to [facility]. CM has informed pts and daughter of this. CM to follow. Plan: [facility] Date Signed: 11/11/2017 09:58 AM Electronically Signed By:ROSS Funez
[2017-11-11] MEDS: ACETAMINOPHEN 325 MG TAB PO PRN (13:50)
[2017-11-12] MEDS: ACETAMINOPHEN 325 MG TAB PO PRN ×2 (07:46→13:02)
[2017-11-12] MEDS ORDERED: ONDANSETRON DISINTEGRATING 4 MG TAB PO PRN (07:48)
[2017-11-12] MEDS: ESCITALOPRAM OXALATE 10 MG TAB PO SCH (08:08)
[2017-11-12] MEDS: METOPROLOL TARTRATE 25 MG TAB PO SCH (08:08)
[2017-11-12] MEDS: GABAPENTIN 100 MG CAP PO SCH (08:08)
[2017-11-12 11:35] VITALS: BP 108/73
--- NOTE | 2017-11-12 14:31 | SOAPPROG ---
SOAP Progress Note Assessment/Plan: Assessment: Plan: Subjective: states he's comforatble and fels better than pre-op dressings intact with foot NVI dc to rehab today fu in office Objective: Vital Signs Temp Pulse Resp BP Pulse Ox 36.7 C 98 16 108/73 92 11/12/17 11:33 11/12/17 11:33 11/12/17 11:33 11/12/17 11:33 11/12/17 11:33 11/11/17 11/12/17 11/13/17 05:59 05:59 05:59 Intake Total 650 0 228 Output Total 100 400 Balance 550 -400 228 ICD10 Worksheet Patient Problems: Problems Problem Status Onset Epistaxis Acute Rapid atrial fibrillation Acute
--- NOTE | 2017-11-12 14:39 | PDIAF ---
- Diagnosis Diagnosis: s/p clementine right thigh Code Status: Do Not Resuscitate - Medication Management Discharge Medications: Medications to Continue on Transfer Atorvastatin Calcium [Lipitor 20 mg (*)] 20 mg PO DAILY 03/28/16 [Last Taken 02/18 06:30] C/E/Zn/Cu/OM3/DHA/EPA/LUT/ZEAX [Preservision Areds 2 Softgel] 1 each PO BID [Last Taken 10/27/17] Escitalopram Oxalate [Lexapro 10 MG] 10 mg PO DAILY 03/28/16 [Last Taken 06:30] Tadalafil [Cialis] 5 mg PO HS 03/28/16 [Last Taken 11/05/17] Bevacizumab [Avastin] 1 dose RTEYE .Q6WK 09/13/17 [Last Taken 09/06/17] Eyelea Injection 1 dose LEFTEYE .Q6WK 09/13/17 [Last Taken 10/27/17] oxyCODONE IR [Oxycodone Ir (*)] 5 mg PO Q4 PRN 09/13/17 [Last Taken 1 Week Ago ~ 11/01/17] Polyethylene Glycol 3350 [Miralax 17 gm (*)] 17 gm PO DAILY PRN pkt 09/16/17 [ Last Taken 1 Week Ago ~11/01/17] Acetaminophen [Tylenol ES 500 mg (*)] 1,000 mg PO TID tab 09/24/17 [Last Taken 11/07/17] Aspirin EC [Aspirin EC 81 mg (*)] 81 mg PO DAILY #0 tab 09/24/17 [Last Taken 1 Week Ago ~11/01/17] Gabapentin [Neurontin 100 MG (*)] 100 mg PO TID cap 09/24/17 [Last Taken ] Metoprolol Tartrate [Lopressor 25 mg (*)] 25 mg PO BID #30 tab 09/24/17 [Last Taken 11/08/17 06:30] Apixaban [Eliquis] 5 mg PO HS 11/08/17 [Last Taken 11/06/17] Discharge Medications: Refer to the Discharge Home Medication list for PRN reason. - Orders Services needed: Physical Therapy Isolation Type: None Diet Recommendation: no restrictions on diet Diet Texture: Regular Texture Diet Chito Stockings Discontinue Date: 11/18/17 Wound Care Instructions: will be assessed in office Sutures/[place] Site: r hip/thigh Activity/Weight Bearing Restrictions: wbat ble Equipment: walker Additional Instructions: wbat on rle - Follow Up Care Current Providers and Referrals: Chelita Abreu MD [Primary Care Provider] -
--- NOTE | 2017-11-12 16:26 | ASMTLACE ---
LACE Length of stay for Answers: 3 days current admission Acuity / Level of Answers: No Care: Did the patient have an inpatient admission? Comorbidities - select Answers: Cerebrovascular disease all that apply (CVA, TIA, aneurysms, vasc ular dementia) Coronary Artery Disease Opioid dependence / Chronic pain Other Notes: HTN; # of Emergency department Answers: 0 visits in the last 6 months Score: 11 Date Signed: 11/12/2017 02:50 PM Electronically Signed By:Libia Farias RN
--- NOTE | 2017-11-16 13:41 | ASDISCHSUM ---
Discharge Information Plan Status:SNF Medically Cleared to Leave:11/12/2017 Discharge Date:11/12/2017 CM D/C Disposition:Fdc Facility ADT D/C Disposition:Other Rehab, Not [place] Projected Discharge Date:11/12/2017 11:00 AM Transportation at D/C:Wheelchair Van Discharge Delay Reason: Follow-Up Date:11/12/2017 11:00 AM Discharge Slot: Final Diagnosis: Placement Information Referral Type:*[facility]/SNF Referral ID:[id number] Provider Name:[facility] Address 1:[address] [facility] Address 2: City:[place] Selection Factors: State:[place] Referral Type:*Home Health Care Services Referral ID:[id number] Provider Name: Address 1: Phone Number: Address 2: Fax Number: City: Selection Factors: State: Patient Contact Information Contact Name:ESTEE Relationship: Address:[address] City:[place] Alternate Phone: State/Zip Code:[place] [address] Email: Financial Information Financial Class:Medicare Primary Plan Desc:MEDICARE INPATIENT Primary Plan Number:[id number] Secondary Plan Desc:MEDARDO JAMES ADAMS Secondary Plan Number:[id number] Assessment Information LACE LACE Length of stay for Answers: 3 days current admission Acuity / Level of Answers: No Care: Did the patient have an inpatient admission? Comorbidities - select Answers: Cerebrovascular disease all that apply (CVA, TIA, aneurysms, vasc ular dementia) Coronary Artery Disease Opioid dependence / Chronic pain Other Notes: HTN; # of Emergency department Answers: 0 visits in the last 6 months Score: 11 Date Signed: 11/12/2017 02:50 PM Electronically Signed By:Libia Farias RN [facility] Initial CM Assessment Living Arrangements What is your living Answers: With Spouse arrangement? Who do you live with? Type Of Residence What kind of residence do Answers: House you live in? Discharge Plan Comments Coordination Status Comments Notes: Pt is a 81 y/o man admitted for elevated BP and hypoxia post op. CM spoke w/ pts . is concerned about pts inability to walk. Therapies have been ordered and awaiting recommendations. Pt is current w/ [facility] for PT. reports that pt was a 2 person assist to transfer today. CM to follow. Plan: TBD Date Signed: 11/09/2017 04:37 PM Electronically Signed By:ROSS Funez [facility] CM Progress Note CM Note CM Note Notes: CM spoke w/ Dr. Hensley' PAGuillermo regarding d/c POC. CM met w/ pt and for dispo planning. They would like CM to make a referral to [facility]. Anticipate d/c for Tuesday. CM completed non triggering PASRR. Pt is current w/ [facility]. CM spoke w/ Salma at [facility] and provided her updates. CM to follow. Plan: [facility] Date Signed: 11/10/2017 12:20 PM Electronically Signed By:ROSS Funez [facility] Progress Note CM Note CM Note Notes: Pt has been accepted to [facility]. CM has informed pts and daughter of this. CM to follow. Plan: [facility] Date Signed: 11/11/2017 09:58 AM Electronically Signed By:ROSS Funez Case Management Discharge Plan Note Case Management Discharge Discharge Order Complete? Answers: Yes Patient to Obtain Answers: Other Notes: [facility] Medications Transportation Arranged Answers: Other Notes: [facility] wheel chair arrange d by [facility] Faxed Final Orders Answers: Yes Agency/Facility Transfer Answers: Yes Report Printed & Faxed to Receiving Agency Family Notified Answers: Yes Discharge Comments Notes: 11/12/2017 Case Management Note Pt to d/c to [facility]. Faxed final orders. RN to call report. Transport arranged by [facility]. [facility] wheelchair with O2 to brain picker at 1530. Date Signed: 11/12/2017 02:59 PM Electronically Signed By:Libia Farias RN Intervention Information Intervention Type:*IM-Signed Date of Service:11/11/2017 03:02 PM Patient Type:Inpatient Staff Member:Shelbie Stoll Hours: Discipline: Severity: Comment:
== END 2017-11-12 15:42 | DRG 988 ==
LOC: FSGY 08:07 → OBSVTOIN 15:56 → F3N 15:56 → F2W 18:44
PROVIDERS: ADMIT Orthopaedic Surgery; ATTEND Orthopaedic Surgery
PROC: 0QP704Z Removal of Internal Fixation Device from Left Upper Femur, Open Approach (ICD-10-PCS; principal; 2017-11-08 09:45)
DX: R09.02 Hypoxemia (principal); T84.84XA Pain due to internal orthopedic prosthetic devices, implants and grafts, initial encounter; I10 Essential (primary) hypertension; I48.91 Unspecified atrial fibrillation; I49.5 Sick sinus syndrome; N40.0 Benign prostatic hyperplasia without lower urinary tract symptoms; Z95.5 Presence of coronary angioplasty implant and graft; Z86.73 Personal history of transient ischemic attack (TIA), and cerebral infarction without residual deficits
CPT/HCPCS: 97116-GP; 97162-GP; 97166-GO; 97530-GP; 97535-GO; G8978-GP-CK; G8979-GP-CI; G8987-GO-CL; G8988-GO-CJ; J0171; J0690; J1885; J2270; J2370; J2704; J3010

== ENCOUNTER → 2017-11-22 | Outpatient (CLI) | payer OTHER | LOC: CIMAGING 13:42 | PROVIDERS: ATTEND Neurological Surgery | DX: S32.030D Wedge compression fracture of third lumbar vertebra, subsequent encounter for fracture with routine healing (principal) | CPT/HCPCS: 72100-PO ==

== ENCOUNTER 2017-12-16 07:52 | Day surgery (SDC) | payer OTHER ==
[2017-12-16] MEDS ORDERED: BENZOCAINE UNIT DOSE SPRAY HURRICAINE MM ONE (08:26)
[2017-12-16] MEDS ORDERED: NS 500 ML IV ONE (08:26)
[2017-12-16] MEDS ORDERED: MIDAZOLAM 2 MG/2 ML VIAL IVP ONE (08:26)
[2017-12-16] MEDS ORDERED: fentaNYL 100 MCG/2 ML INJ IVP ONE (08:26)
--- NOTE | 2017-12-16 09:15 | PDANEPAE ---
ANE History of Present Illness 82 year old male w/ A. Fib presents for KIRSTY/CV. ANE Past Medical History - Cardiovascular History Hx Hypertension: Yes Hx Arrhythmias: Yes Hx Chest Pain: No Hx Coronary Artery / Peripheral Vascular Disease: Yes Hx CHF / Valvular Disease: No Hx Palpitations: No Cardiovascular History Comment: Sick sinus syndrome, A Fib, Heart cath w/2 stents November. - Pulmonary History Hx COPD: No Hx Asthma/Reactive Airway Disease: No Hx Recent Upper Respiratory Infection: No Hx Oxygen in Use at Home: No Hx Sleep Apnea: No Pulmonary History Comment: Dx w/Leander-Barry appro 2009 - Neurologic History Hx Cerebrovascular Accident: No Hx Seizures: No Hx Dementia: No Neurologic History Comment: TIA . Decreased strength/stamina. Short term memory impairment-past yr. - Endocrine History Hx Diabetes: No - Renal History Hx Renal Disorders: No Renal History Comment: BPH- responded to Cool Thermotx and Cialis. - Liver History Hx Hepatic Disorders: No - Neurological & Psychiatric Hx Hx Neurological and Psychiatric Disorders: Yes Neurological / Psychiatric History Comment: L3 compression fx, concussion sustained w/fall 08-08-17. - Cancer History Hx Cancer: No - Congenital Disorder History Hx Congenital Disorders: No - GI History Hx Gastrointestinal Disorders: No - Other Health History Other Health History: macular degeneration-bilat;. seasonal allergies - Chronic Pain History Chronic Pain: Yes (back/L groin) - Surgical History Prior Surgeries: Rodding R hip -2016. shoulder sx. sinus sx. varicose vein sx. laminectomy. bilat knee scopes. hernia with severe hemorraging ANE Review of Systems Review of Systems: - Exercise capacity Exercise capacity: <4 METS ANE Patient History - Allergies Allergies/Adverse Reactions: hydrocodone [From Vicodin] Allergy (Verified 11/02/17 12:14) Vomiting sulfacetamide Allergy (Verified 11/02/17 12:14) - Home Medications Home medications: home medication list seen and reviewed Home Medications: Atorvastatin Calcium [Lipitor 20 mg (*)] 20 mg PO DAILY 03/28/16 [Last Taken 02/18 06:30] C/E/Zn/Cu/OM3/DHA/EPA/LUT/ZEAX [Preservision Areds 2 Softgel] 1 each PO BID [Last Taken 10/27/17] Escitalopram Oxalate [Lexapro 10 MG] 10 mg PO DAILY 03/28/16 [Last Taken 06:30] Tadalafil [Cialis] 5 mg PO HS 03/28/16 [Last Taken 11/05/17] Bevacizumab [Avastin] 1 dose RTEYE .Q6WK 09/13/17 [Last Taken 09/06/17] Eyelea Injection 1 dose LEFTEYE .Q6WK 09/13/17 [Last Taken 10/27/17] oxyCODONE IR [Oxycodone Ir (*)] 5 mg PO Q4 PRN 09/13/17 [Last Taken 1 Week Ago ~ 11/01/17] Apixaban [Eliquis] 5 mg PO HS 11/08/17 [Last Taken 11/06/17] - NPO status NPO Status: no food or drink >8 hours - Anes Hx Anes Hx: post operative cognitive dysfunction Hx Anesthesia Complications (with details): Patient states he is slow to come around, had hallucinations and impaired short term memory following general anesthesia (hernia repair and removal of hardware) in the past. - Smoking Hx Smoking Status: Former smoker - Alcohol Use Alcohol Use: None - Family Anes Hx Family Anes Hx: neg - N/A ANE Labs/Vital Signs - Vital Signs Vital Signs: reviewed preoperatively; see RN documention for details Height: 191 cm Weight: 86.6 kg ANE Physical Exam - Airway Neck exam: FROM Mallampati Score: Class 2 Mouth exam: normal dental/mouth exam - Pulmonary Pulmonary: no respiratory distress - Cardiovascular Cardiovascular: regular rate and rhythym - ASA Status ASA Status: III ANE Anesthesia Plan Anesthesia Plan: GA with mask Total IV Anesthesia: Yes
[2017-12-16] MEDS ORDERED: PROPOFOL 200 MG/20 ML VIAL ONE (09:53)
--- NOTE | 2017-12-16 09:57 | PDHPUP ---
History & Physical Update H&P update statement: This history and physical update is based on an assessment of the patient which was completed after admission or registration (within 24 hours), but prior to the surgery/procedure. H&P update: H&P reviewed & patient examined, no change in patient's condition since H&P completed (Reviewed Dr. Mitchell's office note)
--- NOTE | 2017-12-16 11:23 | POSTANESTH ---
Post Anesthetic Evaluation Cardiovascular Status: Similar to Pre-Op Cond Respiratory Status: Normal, Stable, Similar to Pre-op Cond. Level of Consciousness/Mental Status: Can Participate in Eval, Alert and Oriented Pain Control: Adequate, Prn Tx Ordered Nausea/Vomiting Control: Adequate, Prn Tx Ordered Complications Possibly Related to Anesthesia: None Noted (Patient tolerated procedure and anesthetic well. Very alert and interactive during post-op evaluation.)
--- NOTE | 2017-12-16 11:44 | ECHO ---
[email or web address] [place] [id number] Main: [phone] Fax: Transesophageal Echocardiography Name: DARIA GARDNER MR#: [id number] Study Date: 12/16/2017 Study Time: 09:57 AM Date of : 1935 Age: 82 year(s) Height: ( ) Weight: ( ) BSA: Gender: Male Examination: KIRSTY Indication: Pre Watchman Image Quality: Contrast: Requested by: Buffy Palomo Heart Rate: Rhythm: BP: / Procedure Staff Bread Packer: Augie Camacho RDCS Reading Physician: Buffy Palomo MD Requesting Provider: Arturo Mitchell KIRSYT Exam Details Conclusions: Severely reduced systolic LV function. The ejection fraction is estimated to be 20-25 %. Global hypokinesis. negative bubble study. Slight color flow doppler in the left atrial appendage. Probable thrombus in left appendage. Spontaneous contrast is present in the left atrial appendage. JONO measurements: 0 - 2.2cm x 2.8cm 45- 2.4cm x 2.9 cm 90- 1.9 cm x 2.6 cm 135- 2.0 cm. compared with TTE 09/2017 LVEF has significantly decreased. Measurements: Chambers Valvular Assessment AV/MV Valvular Assessment TV/PV Normal Normal Normal Name Value Range Name Value Range Name Value Range EF Range: 20-25 % Additional Measurements: Findings: Left Ventricle: Severely reduced systolic LV function. The ejection fraction is estimated to be 20-25 %. Global hypokinesis. Left Atrium: Patient: DARIA GARDNER Study Date: 12/16/2017 Page 1 of 2 09:57 AM Spontaneous contrast in the left atrium. negative bubble study. Left Atrial Appendage: Slight color flow doppler in the left atrial appendage. Probable thrombus in left appendage. Spontaneous contrast is present in the left atrial appendage. Mitral Valve: Mild mitral valve regurgitation is present. Exam Comments: JONO measurements: 0 - 2.2cm x 2.8cm 45- 2.4cm x 2.9 cm 90- 1.9 cm x 2.6 cm 135- 2.0 cm. l1n (No Signature Object) Patient: DARIA GARDNER Study Date: 12/16/2017 Page 2 of 2 09:57 AM [id number]
== END 2017-12-16 11:51 | disposition home or self-care (01) ==
LOC: FCATH 07:52
PROVIDERS: ATTEND Internal Medicine Cardiovascular Disease
PROC: B245ZZ4 Ultrasonography of Left Heart, Transesophageal (ICD-10-PCS; principal; 2017-12-16)
DX: I48.91 Unspecified atrial fibrillation (principal); R93.1 Abnormal findings on diagnostic imaging of heart and coronary circulation; I25.10 Atherosclerotic heart disease of native coronary artery without angina pectoris; I10 Essential (primary) hypertension; I49.5 Sick sinus syndrome; I47.2 Ventricular tachycardia; E78.5 Hyperlipidemia, unspecified; F32.9 Major depressive disorder, single episode, unspecified; N40.0 Benign prostatic hyperplasia without lower urinary tract symptoms; H35.30 Unspecified macular degeneration; Z79.01 Long term (current) use of anticoagulants; Z79.82 Long term (current) use of aspirin; Z86.73 Personal history of transient ischemic attack (TIA), and cerebral infarction without residual deficits; Z87.891 Personal history of nicotine dependence; Z96.641 Presence of right artificial hip joint; Z95.5 Presence of coronary angioplasty implant and graft; Z88.2 Allergy status to sulfonamides
CPT/HCPCS: J2704

== ENCOUNTER → 2017-12-21 | Outpatient (CLI) | payer OTHER | LOC: BHFA 10:00 | PROVIDERS: ATTEND Internal Medicine Cardiovascular Disease | DX: I48.91 Unspecified atrial fibrillation (principal); I51.3 Intracardiac thrombosis, not elsewhere classified ==

== ENCOUNTER → 2018-01-11 | Outpatient (CLI) | payer OTHER ==
--- NOTE | 2018-02-02 09:01 | PDANEPAE ---
ANE History of Present Illness rula for JONO edel ANE Past Medical History - Cardiovascular History Hx Hypertension: Yes Hx Arrhythmias: Yes Hx Chest Pain: No Hx Coronary Artery / Peripheral Vascular Disease: Yes Hx CHF / Valvular Disease: No Hx Palpitations: No Cardiovascular History Comment: Sick sinus syndrome, A Fib, Heart cath w/2 stents November. - Pulmonary History Hx COPD: No Hx Asthma/Reactive Airway Disease: No Hx Recent Upper Respiratory Infection: No Hx Oxygen in Use at Home: No Hx Sleep Apnea: No Pulmonary History Comment: Dx w/Leander-Barry appro 2009 - Neurologic History Hx Cerebrovascular Accident: No Hx Seizures: No Hx Dementia: No Neurologic History Comment: TIA . Decreased strength/stamina. Short term memory impairment-past yr. - Endocrine History Hx Diabetes: No - Renal History Hx Renal Disorders: No Renal History Comment: BPH- responded to Cool Thermotx and Cialis. - Liver History Hx Hepatic Disorders: No - Neurological & Psychiatric Hx Hx Neurological and Psychiatric Disorders: Yes Neurological / Psychiatric History Comment: L3 compression fx, concussion sustained w/fall 08-08-17. - Cancer History Hx Cancer: No - Congenital Disorder History Hx Congenital Disorders: No - GI History Hx Gastrointestinal Disorders: No - Other Health History Other Health History: macular degeneration-bilat;. seasonal allergies - Chronic Pain History Chronic Pain: Yes (back/L groin) - Surgical History Prior Surgeries: Rodding R hip . shoulder sx. sinus sx. varicose vein sx. laminectomy. bilat knee scopes. hernia with severe hemorraging ANE Review of Systems Review of Systems: - Exercise capacity Exercise capacity: limited by disability ANE Patient History - Allergies Allergies/Adverse Reactions: hydrocodone [From Vicodin] Allergy (Verified 11/02/17 12:14) Vomiting sulfacetamide Allergy (Verified 11/02/17 12:14) - Home Medications Home medications: home medication list seen and reviewed Home Medications: Atorvastatin Calcium [Lipitor 20 mg (*)] 20 mg PO DAILY 03/28/16 [Last Taken 02/18 06:30] C/E/Zn/Cu/OM3/DHA/EPA/LUT/ZEAX [Preservision Areds 2 Softgel] 1 each PO BID [Last Taken 10/27/17] Escitalopram Oxalate [Lexapro 10 MG] 10 mg PO DAILY 03/28/16 [Last Taken 06:30] Tadalafil [Cialis] 5 mg PO HS 03/28/16 [Last Taken 11/05/17] Bevacizumab [Avastin] 1 dose RTEYE .Q6WK 09/13/17 [Last Taken 09/06/17] Eyelea Injection 1 dose LEFTEYE .Q6WK 09/13/17 [Last Taken 10/27/17] oxyCODONE IR [Oxycodone Ir (*)] 5 mg PO Q4 PRN 09/13/17 [Last Taken 1 Week Ago ~ 11/01/17] - NPO status NPO Status: no food or drink >8 hours NPO Since - Liquids (Date): 02/02/18 NPO Since - Liquids (Time): 06:30 (sips H2O with meds) - Anes Hx Anes Hx: no prior problems - Smoking Hx Smoking Status: Former smoker - Alcohol Use Alcohol Use: None - Family Anes Hx Family Anes Hx: none ANE Physical Exam - Airway Mallampati Score: Class 2 Mouth exam: poor dentition - Pulmonary Pulmonary: no respiratory distress - Cardiovascular Cardiovascular: irregularly irregular - ASA Status ASA Status: III ANE Anesthesia Plan Anesthesia Plan: GA with mask Total IV Anesthesia: Yes
== END ==
LOC: CIMAGING 15:33
PROVIDERS: ATTEND Family Medicine
DX: J44.9 Chronic obstructive pulmonary disease, unspecified (principal); I51.7 Cardiomegaly
CPT/HCPCS: 71046-PO

== ENCOUNTER 2018-04-03 06:59 | Day surgery (SDC) | payer OTHER ==
[2018-04-03] MEDS ORDERED: NS 500 ML IV ONE (07:00)
[2018-04-03] MEDS ORDERED: MIDAZOLAM 2 MG/2 ML VIAL IVP ONE (07:00)
[2018-04-03] MEDS ORDERED: BENZOCAINE UNIT DOSE SPRAY HURRICAINE MM ONE (07:00)
[2018-04-03] MEDS ORDERED: fentaNYL 100 MCG/2 ML INJ IVP ONE (07:00)
--- NOTE | 2018-04-03 08:22 | PDGENHP ---
History & Physical Chief Complaint: History of left atrial appendage thrombus. History of Present Illness: 82-year-old male with history of left atrial appendage thrombus, paroxysmal atrial fibrillation, history of frequent falls and bleeding. He is now here to re-evaluate for persistent left atrial appendage thrombus and candidacy for Watchman device. Pertinent Past, Social, Family History: reviewed Cardiorespiratory Assessment: stable
--- NOTE | 2018-04-03 08:25 | PDANEPAE ---
ANE History of Present Illness rula ANE Past Medical History - Cardiovascular History Hx Hypertension: Yes Hx Arrhythmias: Yes Hx Chest Pain: No Hx Coronary Artery / Peripheral Vascular Disease: Yes Hx CHF / Valvular Disease: No Hx Palpitations: No Cardiovascular History Comment: Sick sinus syndrome, A Fib, Heart cath w/2 stents November. - Pulmonary History Hx COPD: No Hx Asthma/Reactive Airway Disease: No Hx Recent Upper Respiratory Infection: No Hx Oxygen in Use at Home: No Hx Sleep Apnea: No Pulmonary History Comment: Dx w/Leander-Barry appro 2009 - Neurologic History Hx Cerebrovascular Accident: No Hx Seizures: No Hx Dementia: No Neurologic History Comment: TIA . Decreased strength/stamina. Short term memory impairment-past yr. - Endocrine History Hx Diabetes: No - Renal History Hx Renal Disorders: No Renal History Comment: BPH- responded to Cool Thermotx and Cialis. - Liver History Hx Hepatic Disorders: No - Neurological & Psychiatric Hx Hx Neurological and Psychiatric Disorders: Yes Neurological / Psychiatric History Comment: L3 compression fx, concussion sustained w/fall 08-08-17. - Cancer History Hx Cancer: No - Congenital Disorder History Hx Congenital Disorders: No - GI History Hx Gastrointestinal Disorders: No - Other Health History Other Health History: macular degeneration-bilat;. seasonal allergies - Chronic Pain History Chronic Pain: Yes (back/L groin) - Surgical History Prior Surgeries: Rodding R hip . shoulder sx. sinus sx. varicose vein sx. laminectomy. bilat knee scopes. hernia with severe hemorraging ANE Review of Systems Review of Systems: ANE Patient History - Allergies Allergies/Adverse Reactions: hydrocodone [From Vicodin] Allergy (Verified 11/02/17 12:14) Vomiting sulfacetamide Allergy (Verified 11/02/17 12:14) - Home Medications Home medications: home medication list seen and reviewed Home Medications: Atorvastatin Calcium [Lipitor 20 mg (*)] 20 mg PO DAILY 03/28/16 [Last Taken 02/18 06:30] C/E/Zn/Cu/OM3/DHA/EPA/LUT/ZEAX [Preservision Areds 2 Softgel] 1 each PO BID [Last Taken 10/27/17] Escitalopram Oxalate [Lexapro 10 MG] 10 mg PO DAILY 03/28/16 [Last Taken 06:30] Tadalafil [Cialis] 5 mg PO HS 03/28/16 [Last Taken 11/05/17] Bevacizumab [Avastin] 1 dose RTEYE .Q6WK 09/13/17 [Last Taken 09/06/17] Eyelea Injection 1 dose LEFTEYE .Q6WK 09/13/17 [Last Taken 10/27/17] oxyCODONE IR [Oxycodone Ir (*)] 5 mg PO Q4 PRN 09/13/17 [Last Taken 1 Week Ago ~ 11/01/17] - NPO status NPO Status: no food or drink >8 hours - Smoking Hx Smoking Status: Former smoker ANE Labs/Vital Signs - Vital Signs Height: 191 cm Weight: 87.5 kg ANE Physical Exam - Airway Mallampati Score: Class 2 Mouth exam: normal dental/mouth exam - Pulmonary Pulmonary: no respiratory distress - Cardiovascular Cardiovascular: irregularly irregular - ASA Status ASA Status: III ANE Anesthesia Plan Anesthesia Plan: GA with mask, MAC
[2018-04-03] MEDS ORDERED: LIDOCAINE 2% 2 ML INJ ONE (08:28)
[2018-04-03] MEDS ORDERED: PROPOFOL 200 MG/20 ML VIAL ONE (08:28)
[2018-04-03] MEDS ORDERED: ALBUTEROL 3 ML DEYVIAL IH PRN (08:52)
[2018-04-03] MEDS ORDERED: NALOXONE HCL 0.4 MG/ML INJ IVP PRN (08:52)
[2018-04-03] MEDS ORDERED: ACETAMINOPHEN 325 MG TAB PO PRN (08:52)
--- NOTE | 2018-04-03 08:52 | POSTANESTH ---
Post Anesthetic Evaluation Cardiovascular Status: Normal, Stable Respiratory Status: Normal, Stable Level of Consciousness/Mental Status: Can Participate in Eval Pain Control: Adequate, Prn Tx Ordered Nausea/Vomiting Control: Adequate, Prn Tx Ordered Complications Possibly Related to Anesthesia: None Noted
[2018-04-03 10:00] VITALS: BP 172/94
--- NOTE | 2018-04-04 17:20 | ECHO ---
[email or web address] [address] [address] Main: [phone] Fax: Transesophageal Echocardiography Name: DARIA GARDNER MR#: [id number] Study Date: 04/03/2018 Study Time: 08:21 AM Date of : 1935 Age: 82 year(s) Height: ( ) Weight: ( ) BSA: Gender: Male Examination: KIRSTY Indication: Eval JONO Image Quality: Contrast: Requested by: Buffy Palomo Heart Rate: Rhythm: BP: / Procedure Staff Technical Publications Manager: Augie Camacho RDCS Reading Physician: Buffy Palomo MD Requesting Provider: Arturo Mitchell KIRSTY Exam Details Conclusions: Mildly reduced systolic LV function. The ejection fraction is visually estimated to be 40 %. Spontaneous contrast in the left atrium. Thrombus in left appendage. Mild mitral valve regurgitation is present. Compared to the previous exam of 02/02/18, Thrombus remains in the JONO.. Measurements: Chambers Valvular Assessment AV/MV Valvular Assessment TV/PV Normal Normal Normal Name Value Range Name Value Range Name Value Range Visual EF: 40 % AV Vmax: 1.17 m/s (1 m/s-1.7 m/s) AV maxP mmHg ( - ) Additional Measurements: Findings: Left Ventricle: Mildly reduced systolic LV function. The ejection fraction is visually estimated to be 40 %. Left Atrium: Spontaneous contrast in the left atrium. Left Atrial Appendage: Patient: DARIA GARDNER Study Date: 04/03/2018 Page 1 of 2 08:21 AM The left atrial appendage is multilobular. Thrombus in left appendage. Spontaneous contrast is present in the left atrial appendage. Right Atrium: The right atrium is normal in size. Mitral Valve: The mitral valve is normal in appearance and function. Mild mitral valve regurgitation is present. Aortic Valve: The aortic valve is tri-leaflet. There is no aortic valve regurgitation. Tricuspid Valve: The tricuspid valve appears normal. Pulmonic Valve: The pulmonic valve is normal in appearance and function. Aorta: The aorta is normal. Pericardium: No pericardial effusion. Exam Comments: Compared to the previous exam of 02/02/18, Thrombus remains in the JONO.. l1n (No Signature Object) Patient: DARIA GARDNER Study Date: 04/03/2018 Page 2 of 2 08:21 AM [id number]
== END 2018-04-03 10:00 | disposition home or self-care (01) ==
LOC: FCATH 06:59
PROVIDERS: ATTEND Internal Medicine Cardiovascular Disease
PROC: B245ZZ4 Ultrasonography of Left Heart, Transesophageal (ICD-10-PCS; principal; 2018-04-03)
DX: I51.3 Intracardiac thrombosis, not elsewhere classified (principal); I48.0 Paroxysmal atrial fibrillation; I34.0 Nonrheumatic mitral (valve) insufficiency
CPT/HCPCS: J2704

== ENCOUNTER → 2018-07-26 | Outpatient (CLI) | payer OTHER | LOC: BHFA 14:00 | PROVIDERS: ATTEND Internal Medicine Cardiovascular Disease | DX: I48.91 Unspecified atrial fibrillation (principal); I25.10 Atherosclerotic heart disease of native coronary artery without angina pectoris; R53.83 Other fatigue | CPT/HCPCS: 78452; 93017; A9500; J2785 ==

== ENCOUNTER → 2018-07-31 | Outpatient (CLI) | payer OTHER | LOC: BHFA 10:00 | PROVIDERS: ATTEND Internal Medicine Interventional Cardiology | DX: I48.91 Unspecified atrial fibrillation (principal); I25.10 Atherosclerotic heart disease of native coronary artery without angina pectoris ==

== ENCOUNTER 2018-08-31 06:27 | Day surgery (SDC) | payer OTHER ==
[2018-08-31] MEDS ORDERED: DIAZEPAM 5 MG TAB PO ONE (06:31)
[2018-08-31] MEDS ORDERED: ASPIRIN EC 325 MG TAB PO ONE (06:31)
[2018-08-31] MEDS ORDERED: FAMOTIDINE 20 MG TAB PO ONE (06:31)
[2018-08-31] MEDS ORDERED: diphenhydrAMINE 25 MG CAP PO ONE (06:31)
[2018-08-31] MEDS ORDERED: NS 1,000 ML IV ONE (06:31)
[2018-08-31 07:29] LABS: PLATELET COUNT 169 10^3/uL (150-400)
[2018-08-31 07:39] LABS: INR 1.15 (0.83-1.16); PROTIME(PATIENT) 14.2 SEC (12.0-15.0)
[2018-08-31] MEDS ORDERED: VERAPAMIL 5 MG/2 ML VIAL ONE (07:44)
[2018-08-31] MEDS ORDERED: MIDAZOLAM 2 MG/2 ML VIAL ONE ×2 (07:44)
[2018-08-31] MEDS ORDERED: LIDOCAINE 1% 300 MG/30 ML SDV ONE (07:44)
[2018-08-31] MEDS ORDERED: fentaNYL 100 MCG/2 ML INJ ONE (07:44)
[2018-08-31] MEDS ORDERED: IOPAMIDOL (ISOVUE-370) 150 ML BTL IV ONE (07:45)
[2018-08-31] MEDS ORDERED: HEPARIN 10,000 UNIT/10 ML MDV (1,000 UNIT/ML) ONE (07:45)
--- NOTE | 2018-08-31 08:40 | PDPROPOC ---
Sedation Plan of Care Sedation Plan of Care: vital signs stable, mental status noted, patient educated of risks, benefits, alternatives, patient can tolerate sedation ASA Classification: ASA 2 Mallampati Score: Class 1 Mallampati Reference Image: Patient passed 3-3-2 rule?: Yes
--- NOTE | 2018-08-31 09:11 | PDDXCAT ---
Diagnostic Cath Note - . Date: 08/31/18 Restaurant Operations Manager: Juan Indication: other (Class 3 heart failure) High-risk criteria on non-invasive testing: stress-induced moderate-size multiple perfusion defects - Procedure Access: right wrist Procedure: left heart catheterization, coronary angiography, left ventriculogram - Materials Left Heart Cath size: 5F Left Heart Cath materials: pigtail, other ([place] 4) - Findings-Left Heart Catheterization LM: Unobstructed LAD: Unobstructed LCX: Unobstructed, site of prior stenting widely patent RCA: Dominant: Unobstructed EDP: 18 mm of mercury LVEF: 30 Wall motion: Global hypokinesis Complications: None Estimated blood loss: <50ml Closure method: TR Band Assessment: Ischemic cardiomyopathy ejection fraction 30%. Complete revascularization with patent obtuse marginal branch stent Plan: Aggressive medical therapy. Patient Problems: Problems Problem Status Onset Epistaxis Acute Rapid atrial fibrillation Acute
--- NOTE | 2018-09-06 11:10 | CPEKG ---
Test Reason : OPEN Blood Pressure : / mmHG Vent. Rate : 084 BPM Atrial Rate : 111 BPM P-R Int : 178 ms QRS Dur : 097 ms QT Int : 383 ms P-R-T Axes : 000 016 005 degrees QTc Int : 453 ms Atrial fibrillation Paired ventricular premature complexes Probable left ventricular hypertrophy Confirmed by Armani Lopez ([id number]) on 09/06/2018 11:10:32 AM Referred By: EULA CARLTON Confirmed By:Armani Lopez
== END 2018-08-31 12:42 | disposition home or self-care (01) ==
LOC: FCATH 06:27
PROVIDERS: ATTEND Internal Medicine Interventional Cardiology
DX: I25.5 Ischemic cardiomyopathy (principal); I25.10 Atherosclerotic heart disease of native coronary artery without angina pectoris; I10 Essential (primary) hypertension; I47.1 Supraventricular tachycardia; I48.91 Unspecified atrial fibrillation; E78.5 Hyperlipidemia, unspecified; Z95.5 Presence of coronary angioplasty implant and graft; Z86.73 Personal history of transient ischemic attack (TIA), and cerebral infarction without residual deficits
CPT/HCPCS: 93458; C1769; J1644; J2250; J3010; Q9967

== ENCOUNTER 2018-12-03 13:56 | Inpatient (IN) | payer OTHER | END 2018-12-06 13:02 | disposition home or self-care (01) | LOC: F3N 15:58 ==